=== PATIENT | female | born 1960 | race Caucasian/White ===

== ENCOUNTER 2016-06-25 00:11 | Emergency (ER) | payer OTHER | END 2016-06-25 00:52 | disposition home or self-care (01) | LOC: D.ER 00:11 | DX: M48.06 Spinal stenosis, lumbar region (principal); F17.200 Nicotine dependence, unspecified, uncomplicated ==

== ENCOUNTER → 2016-12-02 16:28 | Outpatient (CLI) | payer OTHER ==
[~2016-12-02 16:28] MED LIST: BACLOFEN10 MG; CELEXA40 MG PO; COZAAR100 MG PO; KLONOPIN0.5 MG PO; LIPITOR10 MG PO; MOBIC7.5 MG PO; PLAVIX75 MG PO
[2017-01-20 17:48] VITALS: BMI 25.9
== END | disposition home or self-care (01) ==
LOC: D.MAMMO 08:00
DX: Z12.31 Encounter for screening mammogram for malignant neoplasm of breast (principal)

== ENCOUNTER 2017-01-20 12:12 | Outpatient (CLI) | payer OTHER ==
[~2017-01-20] VITALS: Ht 154.9 cm; Wt 62.0 kg
--- NOTE | ~2017-01-20 | HEMODYNAMI ---
PATIENT:HERMINIA CHOPRA MEDICAL RECORD: [id number] : 60 LOCATION:[address] ADMISSION DATE: 01/20/17 Generatedon:01/21/201710:04 Patient name: HERMINIA CHOPRA Patient #: [id number] SSN: DO B: 1960 Date of study: 01/21/2017 Page: Of Hemodynamic Procedure Report Patient Data Patient Demographics Procedure consent was obtained First Name: HERMINIA Gender: Female Last Name: NAV : 1960 Middle Initial: A Age: 56 year(s) Patient #: [id number] Race: Unknown Additional ID: [id number] Contact details [address]: [address] [place] [address] State: [place] City: [place] Zip code: [address] Admission Admission Data Admission Date: 01/20/2017 Admission Time: 14:04 Room #: D2132 Lab Results Lab Result Date: 01/21/2017 Lab Result Time: 0:00 Biochemistry Name Units Result Min Max BUN mg/dl 13 --(--*-)-- 7 18 Creatinine mg/dl 0.7 --(*---)-- 0.6 1.3 CBC Name Units Result Min Max Hemoglobin g/dl 12.1 *-(----)-- 13.5 17.5 Procedure Procedure Types Cath Procedure Diagnostic Procedure [facility] w/Coronaries PCI Procedure Coronary Stent Coronary Stent Initial Miscellaneous Procedures Moderate Sedation up to 45 minutes Procedure Description Procedure Date Procedure Date: 01/21/2017 Procedure Start Time: 9:31 Procedure End Time: 10:01 Procedure Staff Name Function Eyal Klein MD Performing Physician Nancy Rubio RT Monitor Una Silva RT Scrub Emilia Lomeli RN Nurse Procedure Data Cath Procedure Fluoroscopy Diagnostic fluoroscopy Total fluoroscopy Time: 10 time: 10 min min Diagnostic fluoroscopy Total fluoroscopy dose: 656 dose: 656 mGy mGy Contrast Material Contrast Material Type Amount (ml) Isovue 300 129 Entry Location Entry Primary Successful Side Size Upsize Upsize Entry Closure Succes sful Closure Location (Fr) 1 (Fr) 2 (Fr) Remarks Device Remarks Femoral Right 5 Fr 6 Fr Exoseal artery Short Estimated blood loss: 5 ml Diagnostic catheters Device Type Used For End Catheter Placement Cordis 5Fr JL 4.0 Left Coronary Catheter (MP) Angiography Cordis 5Fr 3DRC Catheter Right Coronary (MP) Angiography Cordis 5Fr Pigtail LV Angiography Catheter (MP) Procedure Complications No complications Procedure Medications Medication Administration Route Dosage Oxygen NC 2 l/min Lidocaine 2% added to field 20 Heparin Flush Bag added to field 2 bags (1000units/500ml NS) 0.9% NaCl I.V. 100 ml/hr Versed I.V. 1 mg Fentanyl I.V. 50 mcg Heparin Bolus I.V. 4000 units Integrilin (Bolus I.V. 5.6 ml 2mg/ml) Versed I.V. 1 mg Fentanyl I.V. 50 mcg Integrilin Drip I.V. drip 9.9 ml/hr (75mg/100ml) Radial Cocktail added to field 1 syringe (Verapomil 2mg/Nitro 400mcg/Heparin 1500units) Plavix P.O. 75 mg Hemodynamics Rest HGB: 12.1 (g/dl) Heart Rate: 70 (bpm) Pressure Samples Time Site Value (mmHg) Purpose Heart Use Rate(bpm) 9:35 LV 131/9,61 Snapshot 86 Gradients Valve Time Site Site Mean SEP/DFP Peak To Heart Use 1 2 (mmHg) (sec/min) Peak Rate (mmHg) (bpm) Aortic 9:35 LV AO 88 Snapshots Pre Cath Intra NCS Post Cath Vital Signs Time Heart Resp SPO2 etCO2 NIBP (mmHg) Rhythm Pain Sedation Rate (ipm) (%) (mmHg) Status Level (bpm) 9:09:06 70 16 86 34 114/70(97) NSR 0 (11) 10(A) , No pain 9:13:45 68 12 96 41.4 106/68(83) NSR 0 (11) 10(A) , No pain 9:18:22 70 15 95 47.4 106/66(83) NSR 0 (11) 10(A) , No pain 9:22:58 70 16 99 42.2 101/66(77) NSR 0 (11) 10(A) , No pain 9:27:32 76 15 94 0 104/69(81) NSR 0 (11) 10(A) , No pain 9:32:09 80 14 94 23.7 105/63(91) NSR 0 (11) 9(A) , No pain 9:36:43 88 14 94 28.1 103/67(86) NSR w/ ST 0 (11) 9(A) Elevation , No pain 9:41:18 93 15 93 19.2 96/74(85) NSR w/ ST 0 (11) 9(A) Elevation , No pain 9:45:50 93 14 95 40.7 108/73(95) NSR w/ ST 0 (11) 9(A) Elevation , No pain 9:50:49 103 14 94 43.7 129/92(113) NSR w/ ST 0 (11) 9(A) Elevation , No pain 9:55:28 100 15 97 31.1 135/91(114) NSR w/ ST 0 (11) 9(A) Elevation , No pain 10:00:06 87 16 96 32.6 115/82(101) NSR w/ ST 0 (11) 10(A) Elevation , No pain Medications Time Medication Route Dose Verified Delivered Reason Note s Effectiveness by by 9:11:00 Oxygen NC 2 l/min Eyal Nieto used for St. Jeremy Lomeli RN procedure 9:11:07 Lidocaine 2% added 20ml Eyal Morenoory for local to vial [facility] anesthetic field MD CHAPMAN 9:11:14 Heparin Flush added 2 bags Eayl Birch used for Bag to [facility] procedure (1000units/500ml field MD CHAPMAN NS) 9:11:22 0.9% NaCl I.V. 100 Eyal Ireneie Per physician ml/hr St. Jeremy Lomeli RN, MD 9:12:31 Radial Cocktail added 1 Eyal Buffie not used (Verapomil to syringe St. Jeremy Lomeli RN per dr 2mg/Nitro field MD aragon, 400mcg/Heparin femoral 1500units) approach used. 9:29:41 Versed I.V. 1 mg Eyal Bonillaie for sedation St. Jeremy Lomeli RN, MD 9:29:48 Fentanyl I.V. 50 mcg Eyal Nieto for sedation St. Jeremy Lomeli RN, MD 9:34:04 Versed I.V. 1 mg Eyal Nieto for sedation St. Jeremy Lomeli RN, MD 9:34:07 Fentanyl I.V. 50 mcg Eyal Nieto for sedation St. Jeremy Lomeli RN, MD 9:38:00 Heparin Bolus I.V. 4000 Eyal Nieto for veri fied units St. Jeremy Lomeli RN anticoagulation with dr MD aragon 9:39:55 Integrilin I.V. 5.6 ml Eyal parker wast ed (Bolus 2mg/ml) St. Jeremy Lomeli RN antiplatelet 4.4 ml MD therapy of vial 9:57:31 Integrilin Drip I.V. 9.9 Eyal parker (75mg/100ml) drip ml/hr St. Jeremy Lomeli RN antiplatelet therapy 10:03:01 Plavix P.O. 75 mg Eyal Aranda RN antiplatelet therapy Procedure Log Time Note 8:42:28 Diagnostic Cath Status : Elective 8:43:15 Time tracking: Regular hours 8:43:22 Plan of Care:Hemodynamics will remain stable., Cardiac rhythm will remain stable., Comfort level will be maintained., Respiratory function will remain adequate., Patient/ family verbilizes understanding of procedure., Procedure tolerated without complication., Recovers from procedure without complications.. 8:44:01 Lab Result : Hemoglobin 12.1 g/dl 8:44:01 Lab Result : BUN 13 mg/dl 8:44:01 Lab Result : Creatinine 0.7 mg/dl 9:00:14 Nancy SHELLEY(R) sent for patient. Start room use. 9:08:11 Patient received from PCU to CCL 1 Alert and oriented. Tansferred to table in Supine position. 9:08:13 Warm blankets applied, and genevieve hugger turned on for patient comfort. 9:08:13 Correct patient and procedure confirmed by team. 9:08:15 Signed procedure consent form obtained from patient. 9:08:15 ECG and BP/O2 sat monitors applied to patient. 9:08:17 Vital chart was started 9:08:17 Full Disclosure recording started 9:11:00 Oxygen 2 l/min NC was administered by Emilia Lomeli RN; used for procedure; 9:11:07 Lidocaine 2% 20ml vial added to field was administered by yEal Klein MD; for local anesthetic; 9:11:14 Heparin Flush Bag (1000units/500ml NS) 2 bags added to field was administered by Eyal Klein MD; used for procedure; 9:11:22 0.9% NaCl 100 ml/hr I.V. was administered by Emilia Lomeli RN; Per physician; 9:12:31 Radial Cocktail (Verapomil 2mg/Nitro 400mcg/Heparin 1500units) 1 syringe added to field was administered by Emilia Lomeli RN; ; not used per dr aragon, femoral approach used. 9:13:18 Baseline sample Acquired. 9:13:32 H&P Date Dictated: 01/21/2017 New H&P dictated by physician.. 9:13:34 Pre-procedure instructions explained to patient. 9:13:34 Pre-op teaching completed and patient verbalized understanding. 9:13:39 Family in waiting room. 9:13:40 Patient NPO since Midnight. 9:14:05 Is the patient allergic to Iodine/contrast media? No. 9:14:07 Was the patient premedicated? No 9:14:11 Is patient on blood thinner?Yes 9:14:15 ACC The patient was administered the following blood thiners within the last 24 hours: ACCPlavix 9:14:21 Patient diabetic? No. 9:14:24 Previous problem with sedation/anesthesia? No ? 9:14:27 Snore? Yes 9:14:29 Sleep apnea? No 9:14:30 Deviated septum? No 9:14:31 Opens mouth fully? Yes 9:14:32 Sticks out tongue? Yes 9:14:35 Airway obstruction? No ? 9:14:43 Dentures? Yes in tight 9:14:48 Pre procedure: right dorsailis pedis pulse 2+ Normal; easily identifiable; not easily obliterated 9:14:50 Pre procedure: left dorsailis pedis pulse 2+ Normal; easily identifiable; not easily obliterated 9:14:53 Patient pain scale 4/10 ?. 9:15:00 IV patent on arrival in right hand with 0.9% NaCl at O. 9:15:03 Lab results completed and on chart. 9:15:09 Right Radial & Right Groin area was prepped with chlora-prep and draped in sterile fashion 9:15:10 Alarms reviewed by R. N. 9:15:11 Sharps counted by scrub and verified by R.N. 9:20:37 Zero performed for pressure channel P1 9:20:48 Physician paged 9:27:07 Physician arrived 9:27:08 --------ALL STOP TIME OUT------ 9:27:09 Final Timeout: patient, procedure, and site verified with staff and physician. All members of the team are in agreement. 9:27:13 Right Radial & Right Groin site verified by team. 9:27:17 Physical assessment completed. ASA score P 2 - A patient with mild systemic disease as per Eyal Klein MD. 9:27:23 Sedation plan: IV Moderate Sedation Medication:Versed, Fentanyl 9:27:29 Use device set Femoral Dx 9:27:30 Acist Syringe opened to sterile field. 9:27:30 Bag Decanter opened to sterile field. 9:27:31 Medline Cath Pack opened to sterile field. 9:27:31 Terumo 5Fr Ocate Sheath opened to sterile field. 9:27:32 St Jason 260cm J .035 wire opened to sterile field. 9:27:33 Acist Hand Control opened to sterile field. 9:27:33 Acist Manifold opened to sterile field. 9:27:34 Diagnostic Infinity 5Fr Multipack catheter opened to sterile field. 9:27:34 Tegaderm 4 x 4 opened to sterile field. 9:29:41 Versed 1 mg I.V. was administered by Emilia Lomeli RN; for sedation; 9::48 Fentanyl 50 mcg I.V. was administered by Emilia Lomeli RN; for sedation; 9:31:27 Procedure started. 9:31:30 Local anesthetic to right femoral artery with Lidocaine 2% by Eyal Klein MD.INITIAL ACCESS ONLY 9:31:44 A 5 Fr sheath was inserted into the Right Femoral artery 9:31:52 A Cordis 5Fr JL 4.0 Catheter (MP) was advanced over the wire and used for Left Coronary Angiography. 9:32:48 LCA angiography performed. 9:32:51 Injector settings: Ml/sec: 3, Volume: 6, 9:33:36 Catheter removed. 9:33:42 A Cordis 5Fr 3DRC Catheter (MP) was advanced over the wire and used for Right Coronary Angiography. 9:34:04 Versed 1 mg I.V. was administered by Emilia Lomeli RN; for sedation; 9:34:07 Fentanyl 50 mcg I.V. was administered by Emilia Lomeli RN; for sedation; 9:34:25 RCA angiography performed. 9:34:29 Injector settings: Ml/sec: 3, Volume: 6, 9:34:32 Catheter removed. 9:34:37 A Cordis 5Fr Pigtail Catheter (MP) was advanced over the wire and used for LV Angiography. 9:34:56 Terumo 6Fr Ocate Sheath opened to sterile field. 9:34:57 Villarreal Whisper J 300cm 0.014 guide wire opened to sterile field. 9:34:58 MC2 BasixCompak Inflation Kit opened to sterile field. 9:35:24 LV hemodynamics recorded. 9:35:26 LV gram done using FERRARA 9:35:28 Injector settings: Ml/sec: 5, Volume: 15, 9:35:35 EF : 40 % 9:35:55 Food and Beveragetronic Launcher 6Fr AR 1.0 guide catheter opened to sterile field. 9:36:24 Catheter removed. 9:36:26 Proceeding to intervention. 9:36:34 Sheath upsized to a 6 Fr Short. 9:36:43 6 Fr ar 1 guide catheter was inserted over the wire 9:36:48 whisper wire advanced. 9:38:00 Heparin Bolus 4000 units I.V. was administered by Emilia Lomeli RN; for anticoagulation; verified with dr aragon 9:39:55 Integrilin (Bolus 2mg/ml) 5.6 ml I.V. was administered by Emilia Lomeli RN; for antiplatelet therapy; wasted 4.4 ml of vial 9:40:31 Wire removed. 9:41:03 Guide catheter removed. 9:41:11 Medtronic Launcher 6Fr HS I guide catheter opened to sterile field. 9:41:26 6 Fr hs 1 guide catheter was inserted over the wire 9:43:36 whisper wire advanced. 9:43:40 Inflation number: 1 A Irons Sci Taylor 3.0 X 15 balloon was prepped and advanced across the Dist RCA, then inflated to 10 KEDAR for 0:30 (min:sec). 9:44:24 Irons Sci Choice PT Extra Support J 300cm .014 gu opened to sterile field. 9:45:07 whisper wire exchanged for whisper wire 9:45:43 Inflation number: 2 The Irons Sci Taylor 3.0 X 15 balloon was reinflated across the Dist RCA, to 10 KEDAR for 0:30 (min:sec). 9:45:57 Inflation number: 3 The Irons Sci Taylor 3.0 X 15 balloon was reinflated across the Dist RCA, to 10 KEDAR for 0:10 (min:sec). 9:47:13 Inflation number: 4 The Irons Sci Taylor 3.0 X 15 balloon was reinflated across the Dist RCA, to 10 KEDAR for 0:30 (min:sec). 9:47:55 Balloon removed over the wire. 9:49:52 Inflation Number: 5 A Juan OTW 3.0 x 18 stent was prepped and advanced across the Dist RCA. The stent was deployed at 14 KEDAR for 0:30 (min:sec). 9:50:31 Stent catheter was removed intact over wire. 9:52:42 Inflation Number: 6 A Juan OTW 3.0 x 26 stent was prepped and advanced across the Dist RCA. The stent was deployed at 14 KEDAR for 0:30 (min:sec). 9:53:01 Stent catheter was removed intact over wire. 9:55:48 Inflation Number: 1 A [place] OTW 3.5 x 18 stent was prepped and advanced across the Prox RCA. The stent was deployed at 14 KEDAR for 0:30 (min:sec). 9:57:31 Integrilin Drip (75mg/100ml) 9.9 ml/hr I.V. drip was administered by Emilia Lomeli RN; for antiplatelet therapy; 9:57:42 Inflation number: 1 The stent balloon was then re-inflated across the Mid RCA to 10 KEDAR for 0:30 (min:sec). 9:57:50 Inflation number: 2 The stent balloon was then re-inflated across the Mid RCA to 10 KEDAR for 0:30 (min:sec). 9:58:16 Stent catheter was removed intact over wire. 9:58:17 Wire removed. 9:58:18 Guide catheter removed. 9:59:05 Cordis 6Fr Exoseal opened to sterile field. 10:00:08 Sheath removed intact; hemostasis achieved with Exoseal to the Right Femoral artery. 10:00:10 Procedure ended.(Physican Out) 10:00:30 Fluoroscopy time 10.00 minutes. 10:00:34 Flurop Dose total: 656 10:00:34 Fluoroscopy dose: 656 mGy 10:00:40 Contrast amount:Isovue 300 129ml. 10:00:42 Sharps counted by scrub and verified by R.N. 10:00:44 Insertion/operative site no bleeding no hematoma. 10:00:48 Post-op/insertion site Right Femoral artery dressed using a 4 x 4 and Tegaderm. 10:00:51 Post right femoral artery:stable 10:00:53 Post Procedure Pulses reassessed and unchanged 10:00:56 Post procedure rhythm: unchanged. 10:01:01 Estimated blood loss: 5 ml 10:01:03 Post procedure instruction explained to patient.Patient verbalizes understanding. 10:01:04 Patient needs reinforcement of post procedure teaching. 10:01:23 Procedure type changed to Cath procedure, Diagnostic procedure, LHC, LHC w/Coronaries, PCI procedure, Coronary Stent, Coronary Stent Initial, Miscellaneous Procedures, Moderate Sedation up to 45 minutes 10:01:25 Procedure and supply charges have been captured, reviewed, submitted and are correct. 10:01:43 Procedure Complication : No complications 10:01:45 Vital chart was stopped 10:01:46 See physician's report for complete and final results. 10:01:53 Report given to [facility]. 10:01:56 Patient transfered to [facility] with Stretcher. 10:01:58 Procedure ended. 10:01:58 Full Disclosure recording stopped 10:02:45 ACC-PCI Only Patient was given prescriptions, or instructed by Eyal Klein MD to start/continue the following medications upon discharge: Plavix 10:02:48 End room use (Document Last) 10:03:01 Plavix 75 mg P.O. was administered by Emilia Lomeli RN; for antiplatelet therapy; Intervention Summary Intervention Notes Time ActionType Lesion and Equipment Action# Pressure Duration Attributes Used 9:43:40 Inflate Dist RCA Irons 1 10 00:30 balloon Sci Taylor 3.0 X 15 balloon 9:45:43 Reinflate Dist RCA Irons 2 10 00:30 balloon Sci Taylor 3.0 X 15 balloon 9:45:57 Reinflate Dist RCA Irons 3 10 00:10 balloon Sci Taylor 3.0 X 15 balloon 9:47:13 Reinflate Dist RCA Irons 4 10 00:30 balloon Sci Taylor 3.0 X 15 balloon 9:49:52 Place stent Dist RCA [place] OTW 5 14 00:30 3.0 x 18 stent 9:52:42 Place stent Dist RCA [place] OTW 6 14 00:30 3.0 x 26 stent 9:55:48 Place stent Prox RCA Juan OTW 1 14 00:30 3.5 x 18 stent 9:57:42 Reinflate Mid RCA Juan OTW 1 10 00:30 stent 3.5 x 18 balloon stent 9:57:50 Reinflate Mid RCA [place] OTW 2 10 00:30 stent 3.5 x 18 balloon stent Device Usage Item Name Manufacture Quantity Catalog Number Hospital Part Current Min imal Lot# / Charge Number Stock Stock Serial# Code Acist Acist 1 [id number] 633385 254855 [id number] 20 KnoCo Bag Microtek 1 2002S 149810 88026 028916 5 SpotMe. Medline Cardinal 1 [id number] 632766 95909 154950 5 Cath Pack Health Terumo 5Fr Terumo 1 [id number] 400360 226700 062557 [address] [facility] [address] Jason 1 012022 050058 688174 625592 30 260cm J .035 wire Acist Hand Acist 1 70226 975058 319288 085284 5 Jobr Acist Acist 1 22874 618492 485133 728413 5 Direct Grid Technologies Systems Inc Diagnostic Cardinal 1 [id number] 595817 08205 537580 30 Infinity Health 5Fr Multipack catheter Tegaderm 4 3M 1 1626W 666674 613359 263842 5 x 4 Cordis 5Fr Cardinal 1 727608 5 JL 4.0 Health Catheter (MP) Cordis 5Fr Cardinal 1 110541 5 3DRC Health Catheter (MP) Cordis 5Fr Cardinal 1 134068 5 Pigtail Health Catheter (MP) Terumo 6Fr Terumo 1 [id number] 093063 771853 295640 40 Ocate Sheath [facility] 1 [id number] 829364 256205 153235 5 [facility] 300cm 0.014 guide wire Merit Merit 1 [id number] 286906 055745 748486 15 BasixCompak Medical Inflation Kit Medtronic Medtronic 1 [id number] 504519 63748 693672 1 Launcher 6Fr AR 1.0 guide catheter Medtronic Medtronic 1 [id number] 134456 15297 976989 1 Launcher 6Fr HS I guide catheter Irons Sci Irons 1 [id number] 675592 948213 175340 1 [id number] Taylor Scientific 3.0 X 15 balloon Irons Sci Irons 1 [id number] 978828 367486 611180 5 Choice PT Scientific Extra Support J 300cm .014 gu [place] OTW Medtronic 1 [id number] 502014 6730093 781489 5 [id number] 3.0 x 18 stent [place] OTW Medtronic 1 [id number] 758037 2089957 005857 5 [id number] 3.0 x 26 stent Juan OTW Medtronic 1 [id number] 828692 6895567 979857 5 [id number] 3.5 x 18 stent Cordis 6Fr Cardinal 1 [id number] 870883 848336 391942 10 [facility] Trapit Signature Audit Pollard Stage Time Signature Unsigned Intra-Procedure 01/21/2017 Nancy Rubio 10:04:04 AM RT(R) Signatures Monitor : Nancy Rubio RT Signature : Date : Time : [place] [id number] [place] [address]
[2017-01-20 12:43] LABS: BASOPHILS 0.2 % (0-2); EOSINOPHILS 0.6 % (0-7); HEMATOCRIT 36.4 % (36.0-48.0); HEMOGLOBIN 12.2 g/dL (12-16); IMMATURE GRANULOCYTES 0.3 % (0-5); LYMPHOCYTES 23.6 % (15-50); MCH 30.3 pg (26.0-34.0); MCHC 33.5 g/dL (31.0-37.0); MCV 90.5 fL (80.0-100.0); MEAN PLATELET VOLUME 10.6 fL (7.4-10.4); MONOCYTES 7.9 % (2-11); NEUTROPHILS 67.4 % (40-80); PLATELET COUNT 306 10x3/uL (130-400); RBC 4.02 10x6/uL (4.00-5.40); RDW 15.2 % (11.5-14.5); WBC 13.5 10x3/uL (4.8-10.8)
[2017-01-20 13:22] LABS: ALBUMIN 3.4 g/dL (3.4-5.0); ALKALINE PHOSPHATASE 92 U/L (46-116); ALT (SGPT) 58 U/L (10-68); CALC OSMOLALITY 288 mosm/kg (275-300); CALCIUM 8.5 mg/dL (8.5-10.1); CHLORIDE - SERUM 106 mmol/L (98-107); CREATININE - SERUM 0.8 mg/dL (0.6-1.3); GLUCOSE 139 mg/dL (74-106); POTASSIUM - SERUM 4.1 mmol/L (3.5-5.1); PROTEIN - SERUM 6.8 g/dL (6.4-8.2); SODIUM 143 mmol/L (136-145); UREA NITROGEN 17 mg/dL (7-18); eGFR NON AFRICAN AMERICAN 78 mL/min (90-120)
[2017-01-20 13:23] LABS: BILIRUBIN - TOTAL 0.06 mg/dL (0.2-1.3)
[2017-01-20 13:37] LABS: CHOL - HDL RATIO 3.5 ratio (2.3-4.1); CHOLESTEROL, TOTAL 176 mg/dL (0-200); CKMB 12.2 U/L (0.0-3.6); CREATINE KINASE 169 UL (21-215); HDL CHOLESTEROL 51 mg/dL (32-96); LDL CHOLESTEROL 96 mg/dL (0-100); LDL-HDL RATIO 1.9 ratio (1.5-3.5); TRIGLYCERIDE 146 mg/dL (30-200)
[2017-01-20 13:45] LABS: TROPONIN-I 1.065 ng/mL (0.000-0.060)
--- NOTE | 2017-01-20 17:05 | NUR ---
RECIEVED FROM ER. PT DENIES ANY PAIN AT PRESENT TIME. TELEMERTY SHOWS SR 72.O2 AT 2 L/M PER NC. FAMILY AT BEDSIDE. WILL MONITOR
[2017-01-20 17:10] LABS: CKMB 69.1 U/L (0.0-3.6)
[2017-01-20] MEDS ORDERED: CELEXA40 MG PO (17:16)
[2017-01-20] MEDS ORDERED: MOBIC7.5 MG PO (17:18)
[2017-01-20] MEDS ORDERED: BACLOFEN10 MG (17:19)
[2017-01-20] MEDS ORDERED: KLONOPIN0.5 MG PO (17:21)
[2017-01-20 17:40] LABS: CREATINE KINASE 573 UL (21-215)
[2017-01-20 17:44] LABS: TROPONIN-I 7.052 ng/mL (0.000-0.060)
[2017-01-20 17:48] VITALS: BP 118/71; Ht 154.9 cm; Wt 62.0 kg
--- NOTE | 2017-01-20 19:19 | NUR ---
PT IS RESTING IN BED WITH EYES CLOSED. NO AWOKEN AT THIS TIME. SPOUSE IS AT THE BEDSIDE AT THIS TIME. 02 IS ON @ 2LPM PER NC. RIGHT HAND SALINE LOCK NOTED. SR'S ARE UP X 2 IN BED. CALL LIGHT AND BEDSIDE TABLE ARE WITHIN EASY REACH.
--- NOTE | 2017-01-20 21:30 | NUR ---
PT VOICED COMPLAINT OF CHEST PAIN LEVEL OF 8. DR SPARKS CALLED. NEW ORDERS NOTED. PT MEDICATED PER ORDER.
[2017-01-20 22:40] VITALS: BP 91/52
--- NOTE | 2017-01-20 23:00 | NUR ---
DR SPARKS CALLED WITH TROPONIN LEVEL OF22.243. NO NEW ORDERS GIVEN.
--- NOTE | 2017-01-20 23:08 | NUR ---
RESTING QUIETLY IN BED WITH EYES CLOSED. RESPS ARE EVEN AND UNLABORED. NO ACUTE DISTRESS NOTED.
[2017-01-20 23:21] LABS: CREATINE KINASE 1283 UL (21-215)
[2017-01-20 23:22] LABS: TROPONIN-I 22.243 ng/mL (0.000-0.060)
--- NOTE | 2017-01-20 23:56 | NUR ---
PT IN BED RESTING QUIETLY. BREATHING EVEN AND UNLABORED. WILL CPOC.
[2017-01-21 02:08] VITALS: BP 97/61
--- NOTE | 2017-01-21 03:04 | NUR ---
RESTING IN BED WITH EYES CLOSED.
--- NOTE | 2017-01-21 06:15 | NUR ---
PT RESTING IN BED WITH EYES OPEN. SURGERY CONSENTS SIGNED. NO FURTHER NEEDS VOICED.
[2017-01-21 06:37] VITALS: BP 89/59
--- NOTE | 2017-01-21 07:35 | NUR ---
AM ROUNDING- RECEIVED REPORT FROM DIRECTOR OF HEALTHCARE SYSTEMS NURSE DEMOND. PT IS CURRENTLY SITTING UP IN BED WITH EYES OPEN RESTING. GUEST IS AT BEDSIDE. PT IS CURRENTLY NPO FOR PROCEDURE TODAY (CARDIAC CATH). ON 02 AT 2L VIA NC. ON MONITOR SHOWING SB, HR 59. IV SEEN TO RIGHT HAND THAT IS CURRENTLY SALINE LOCKED. CONSENTS ARE SIGNED AND IN CHART. NO NEED AT THIS CURRENT TIME. WILL CONTINUE TO MONITOR AND CONTINUE WITH PLAN OF CARE.
[2017-01-21 08:00] VITALS: BP 91/59
[2017-01-21 08:04] LABS: BASOPHILS 0.2 % (0-2); HEMATOCRIT 37.8 % (36.0-48.0); HEMOGLOBIN 12.1 g/dL (12-16); IMMATURE GRANULOCYTES 0.2 % (0-5); LYMPHOCYTES 32.6 % (15-50); MEAN PLATELET VOLUME 10.3 fL (7.4-10.4); PLATELET COUNT 260 10x3/uL (130-400); RBC 4.04 10x6/uL (4.00-5.40); RDW 15.5 % (11.5-14.5)
[2017-01-21 08:05] LABS: MCV 93.6 fL (80.0-100.0)
[2017-01-21 08:18] LABS: CALC OSMOLALITY 284 mosm/kg (275-300); CALCIUM 8.7 mg/dL (8.5-10.1); CHLORIDE - SERUM 107 mmol/L (98-107); CREATININE - SERUM 0.7 mg/dL (0.6-1.3); GLUCOSE 93 mg/dL (74-106); POTASSIUM - SERUM 3.9 mmol/L (3.5-5.1); SODIUM 143 mmol/L (136-145); UREA NITROGEN 13 mg/dL (7-18); eGFR NON AFRICAN AMERICAN > 90 mL/min (90-120)
--- NOTE | 2017-01-21 08:46 | NUR ---
PT GIVEN PRE-OP MEDICATIONS DIRECTED. IV FLUIDS HUNG AND TUBING PRIMED.
--- NOTE | 2017-01-21 10:01 | HP ---
PATIENT: HERMINIA CHOPRA MEDICAL RECORD: [id number] ACCOUNT: [id number] LOCATION:[address] : 60 ADMISSION DATE: 01/20/17 HISTORY AND PHYSICAL EXAMINATION HISTORY OF PRESENT ILLNESS: A 56-year-old man with no known history of coronary artery disease. She has a strong family history of coronary artery disease, smokes about a pack and half a day, admitted with chest pressure, right and left arm, left jaw, some dyspnea, and she felt like she had perhaps some viral syndrome. Since in the ER, ECG shows no acute changes; however, cardiac enzymes are elevated consistent with NSTEMI. He is admitted for further evaluation. PAST MEDICAL HISTORY: 1. She has osteoarthritis. 2. Fibromyalgia. ALLERGIES: None known. MEDICATIONS: Typically include baclofen 10 mg p.o. q.6 hours p.r.n., Celexa 40 mg p.o. daily, Mobic 15 mg p.o. at bedtime, Klonopin 0.5 mg daily. SOCIAL HISTORY: Works as a nurse, smokes about a pack and half a day. No illicit drug use. REVIEW OF SYSTEMS: The patient reports easy bruising but reports no swollen glands. The patient reports no fever, no night sweats, no significant weight gain, no significant weight loss. No significant exercise tolerance. The patient reports no dry eyes, no irritation, no vision change. Patient reports no difficulty hearing and no ear pain. Patient reports no frequent nose bleeds or nose and sinus problems. Patient reports on arm pain on exertion. No shortness of breath while lying down. No history of heart murmur. Patient reports no cough, no wheezing or coughing up blood. Patient reports no abdominal pain, no vomiting. Normal appetite. No diarrhea and not vomiting blood. No nausea and no constipation. Patient reports no incontinence. No difficulty urinating. No hematuria. No increased frequency. Patient reports no muscle aches. No weakness, no arthralgias, no back pain. No swelling of the extremities. Patient reports no abnormal mole, no jaundice, no rashes. Reports no loss of consciousness. No weakness and no numbness. No seizures, dizziness, or headaches. The patient reports no depression, no sleep disturbance, feeling safe in a relationship and no alcohol abuse. Patient reports on fatigue. Reports no runny nose or sinus pressure. No itching, no hives, and no frequent sneezing. PHYSICAL EXAMINATION: GENERAL: Pleasant female in no acute distress. VITAL SIGNS: Blood pressure 97/61, pulse 58 and regular. HEENT: Normocephalic, atraumatic. NECK: No JVD or bruit. HEART: Regular, 2/6 systolic ejection murmur. LUNGS: Good air excursion. ABDOMEN: Soft, nontender. EXTREMITIES: Pulses 2+. There is no edema. NEUROLOGIC: Grossly intact. DIAGNOSTIC DATA: ECG shows minor nonspecific ST-T changes. HISTORY AND PHYSICAL [id number] HERMINIA CHOPRA IMPRESSION: Non-ST elevation myocardial infarction. PLAN: Diagnostic angiography, intervention based on above. TRANSINT:[id number] Voice Confirmation ID: [id number] DOCUMENT ID: [id number] MARLENA SPARKS MD at 1001 CC: [id number] DICTATION DATE: 01/21/17815 LEADERSHIP COACH: 01/21/17 0857 ADM IN [place] [id number] [place] [id number]
--- NOTE | 2017-01-21 10:33 | NUR ---
PT BACK FROM DOCTOR NATUROPATHIC. PT IS LETHARGIC. ON 02 AT 4L (TURNED UP DUE TO 02 SAT BEING 88%). DRESSING SEEN TO RIGHT GROIN AREA THAT IS CLEAN, DRY, AND INTACT WITH NO BLEEDING SEEN. VITAL SIGNS ARE BEING TAKEN. PT INSTRUCTED TO LIE FLAT. PT AGREES. PT IS ON INTEGRILIN DRIP AT 9.9ML/HR (KEN, CHARGE NURSE CALLED NAYAN IN DOCTOR NATUROPATHIC AND STATES OK TO RUN INTEGRILIN WITH NS). WILL CONTINUE TO MONITOR.
--- NOTE | 2017-01-21 10:57 | NUR ---
THIS NURSE WENT TO CHECK ON PT. PT IS RESTING WITH EYES CLOSED. FAMILY IS AT BEDSIDE. IV FLUIDS/MEDICATIONS HANGING PER RN INFUSION. DRESSING TO RIGHT GROIN IS CLEAN, DRY, AND INTACT WITH NO BLEEDING SEEN. PT IS LAYING FLAT. WILL CONTINUE TO MONITOR.
[2017-01-21 12:00] VITALS: BP 100/59
[2017-01-21] MEDS ORDERED: LIPITOR10 MG PO (13:00)
[2017-01-21] MEDS ORDERED: COZAAR100 MG PO (13:00)
[2017-01-21] MEDS ORDERED: PLAVIX75 MG PO (13:01)
--- NOTE | 2017-01-21 14:41 | NUR ---
THIS NURSE CHECKED ON PT (VITAL SIGNS BEING TAKING PER PROTOCOL AND ARE ON VITAL SHEET). DRESSING TO RIGHT GROIN IS CLEAN, DRY, AND INTACT WITH NO BLEEDING SEEN. IT HAS BEEN 4 HOURS SINCE PTS CARDIAC CATHETER. THIS NURSE RAISED HOB TO APPROX 30 DEGREES. PT INSTRUCTED TO ALERT STAFF IF ANY BLEEDING SEEN. FAMILY MEMBERS ARE AT BEDSIDE. WILL CONTINUE TO MONITOR.
[2017-01-21 16:00] VITALS: BP 89/53
--- NOTE | 2017-01-21 18:07 | NUR ---
PT IS CURRENTLY LAYING IN BED ON LEFT SIDE WITH EYES OPEN RESTING. FAMILY MEMBERS ARE AT BEDSIDE. DRESSING TO RIGHT GROIN IS CLEAN, DRY, AND INTACT WITH NO BLEEDING SEEN. NO NEED AT THIS CURRENT TIME. WILL CONTINUE TO MONITOR.
--- NOTE | 2017-01-21 20:07 | NUR ---
RESUMED CARE OF PT, LYING IN BED RESPIRATIONS EVEN AND UNLABORED ON 2LPM VIA NC. 75 SR ON TELEMETRY. RIGHT HADN INFUSING INTEGRILIN @ 9.9 AND NS @ 100. NO NEEDS AT THIS TIME, CALL LIGHT IN REACH. SEE NURSE ASSESSMENT.
[2017-01-21 21:07] VITALS: BP 86/50
[2017-01-22 00:42] VITALS: BP 107/62
--- NOTE | 2017-01-22 01:24 | NUR ---
MORPHINE 4MG IVP FOR CHEST PAIN 6:10. WILL CONTINUE TO MONITOR.
--- NOTE | 2017-01-22 03:28 | NUR ---
LYING IN BED WITH EYES CLOSED, CALL LIGHT IN REACH. WILL CONTINUE TO MONITOR.
[2017-01-22 04:46] VITALS: BP 99/59
--- NOTE | 2017-01-22 06:27 | NUR ---
NO CHANGES FROM PREVIOUS ASSESSMENT, CALL LIGHT IN REACH.
--- NOTE | 2017-01-22 07:30 | NUR ---
ASSESSMENT COMPLETED. TELEMERTY SHOWS SR 81. IV TO THE RIGHT HAND. RIGHT GROIN SOFT WITH DRSG DRY AND INTACT. PPP. DENIES ANY NEEDS. SR UP WITH CALL LIGHT IN REACH
[2017-01-22 08:00] VITALS: BP 103/66
--- NOTE | 2017-01-22 08:04 | NUR ---
PT AAOX4 RESP UNLABORED DENIES ANY NEEDS OR DISCOMFORT AT THIS TIME AWAITING DISCHARGE
--- NOTE | 2017-01-22 08:10 | NUR ---
DISCHARGED. IV DCD WITH WITH TIP INTACT. TO PRIVATE CAR PER WHEEL CHAIR.
--- NOTE | 2017-01-22 11:39 | OP ---
PATIENT NAME: HERMINIA CHOPRA MEDICAL RECORD: [id number] :60 LOCATION:D. D.2132 ADMISSION DATE:01/20/17 SURGEON: MARLENA SPARKS MD DATE OF OPERATION: 01/21/2017 PROCEDURE: Left heart catheterization, selective coronary angiography, right femoral artery approach. CATHETERS: A 5-Algerian sheath, 5/4 left and right Vanessa, 5/4 pig. The procedure was well tolerated and we proceeded immediately to PTCA stenting of the right coronary artery. FINDINGS: Left ventriculography in the 30-degree FERRARA view shows inferior, inferobasilar to mid inferior wall hypokinesis. Overall, function reduced 40%. CORONARY ANATOMY: LEFT MAIN: Left main is free of disease. LAD: Luminal irregularities, otherwise free of disease. CIRCUMFLEX: Small vessel, free of disease. RIGHT CORONARY ARTERY: Dominant and is totally occluded in its mid portion with some collateralization distally. IMPRESSION: Single-vessel disease, occluded right. PLAN: Intervention momentarily. DESCRIPTION: A 5-Algerian sheath was exchanged for a 6-Algerian sheath. We initially used an AR1 guiding catheter; however, we had a guide catheter resection. Fortunately we were able to re-cannulate the right coronary artery with a hockey stick catheter. Using a Whisper wire, we were able to transverse both the dissection and the totally occluded right. Next, we used a 3.0 x 15 mm Monterey balloon, exchanged the catheter, placed just distal to the ____ occlusion and used a PT export wire. Next, multiple balloon inflations were placed up and down the right coronary artery with 3.0 x 15 Monterey balloon. Stents were placed in the following fashion: Distally, a 3.0 x 18 mm Enders drug-eluting stent was placed up to 14 atmospheres. Next, a 26-mm x 3.0 Enders stent was inflated up to 14 atmospheres and finally the proximal dissection was addressed with a 3.5 x 18 mm Juan drug-eluting stent. IMPRESSION: Successful percutaneous transluminal coronary angioplasty stenting of the right coronary artery. LYNDA flow improved from 0 to 3. Integrilin was used in the case as well as a drip, Plavix was previously loaded in the ER. Sheath was closed with ExoSeal device. TRANSINT:[id number] Voice Confirmation ID: [id number] DOCUMENT ID: [id number] OPERATIVE REPORT [id number] HERMINIA CHOPRA GREGORY A MD at 1139 CC: [id number] DICTATION DATE: 01/21/17 1007 ALLERGY PHYSICIAN: 01/21/17 1138 DIS IN 01/22/17 [place] [id number] [place] [id number]
== END 2017-01-22 08:15 | disposition home or self-care (01) ==
LOC: OBSVTIME → D.OPS 12:12 → D.ER 12:12 → D.M2 14:04 → OBSVTIME 14:04 → EDSTATUS 17:12 → D.M2 01-22 08:15 → D.OPS 01-22 08:15
PROVIDERS: Emergency Medicine; Internal Medicine Interventional Cardiology
DX: I25.119 Atherosclerotic heart disease of native coronary artery with unspecified angina pectoris (principal); M19.90 Unspecified osteoarthritis, unspecified site; M79.7 Fibromyalgia; F17.210 Nicotine dependence, cigarettes, uncomplicated; Z01.812 Encounter for preprocedural laboratory examination

== ENCOUNTER 2017-05-01 12:13 | Emergency (ER) | payer OTHER ==
[2017-01-20 17:48] VITALS: BMI 25.9
== END 2017-05-01 16:00 | disposition home or self-care (01) ==
LOC: D.ER 12:13
DX: M54.5 Low back pain (principal); S39.012A Strain of muscle, fascia and tendon of lower back, initial encounter; X58.XXXA Exposure to other specified factors, initial encounter; Y93.89 Activity, other specified; Y92.019 Unspecified place in single-family (private) house as the place of occurrence of the external cause

== ENCOUNTER 2017-10-07 10:36 | Emergency (ER) | payer OTHER ==
[~2017-10-07] VITALS: Ht 154.9 cm; Wt 60.9 kg
[2017-10-07 10:48] VITALS: Ht 154.9 cm; Wt 60.9 kg
[2017-10-07 11:45] LABS: APPEARANCE CLEAR (CLEAR); BILIRUBIN NEGATIVE (NEGATIVE); COLOR YELLOW (YELLOW); GLUCOSE NEGATIVE (NEGATIVE); KETONE NEGATIVE (NEGATIVE); NITRITE NEGATIVE (NEGATIVE); PROTEIN NEGATIVE (NEGATIVE); UROBILINOGEN NORMAL (NORMAL)
[2017-10-07 11:48] LABS: BACTERIA FEW /hpf (NONE SEEN); EPITHELIAL CELLS 0-5 /hpf (0-5); RED CELLS - URINE 0-5 /hpf (0-5); WHITE CELLS - URINE 0-5 /hpf (0-5)
[2017-10-07] MEDS ORDERED: MEDROL DOSE PACK4 MG PO (12:36)
[2017-10-07 12:50] VITALS: BP 112/68
== END 2017-10-07 12:52 | disposition home or self-care (01) ==
LOC: D.ER 10:36
PROVIDERS: Nurse Practitioner Family
DX: M54.5 Low back pain (principal); I10 Essential (primary) hypertension; F17.200 Nicotine dependence, unspecified, uncomplicated

== ENCOUNTER 2017-11-23 13:41 | Emergency (ER) | payer SELFPAY ==
[~2017-11-23] VITALS: Ht 154.9 cm; Wt 60.9 kg
[~2017-11-23 13:41] MED LIST changes: +MEDROL DOSE PACK4 MG PO
[2017-11-23 14:02] VITALS: BP 115/72; Ht 154.9 cm; Wt 60.9 kg
== END 2017-11-23 17:05 | disposition left against medical advice (07) ==
LOC: D.ER 13:41
DX: M54.5 Low back pain (principal)

== ENCOUNTER 2017-11-24 10:33 | Emergency (ER) | payer SELFPAY ==
[2017-11-23 14:02] VITALS: BMI 25.3
== END 2017-11-24 11:31 | disposition left against medical advice (07) ==
LOC: D.ER 10:33
DX: M54.5 Low back pain (principal)

== ENCOUNTER 2017-12-02 23:13 | Emergency (ER) | payer SELFPAY ==
[~2017-12-02] VITALS: Ht 154.9 cm; Wt 60.8 kg
[2017-12-02 23:17] VITALS: Ht 154.9 cm; Wt 60.8 kg
[2017-12-02] MEDS ORDERED: CYCLOBENZAPRINE10 MG PO (23:35)
[2017-12-02] MEDS ORDERED: ACETAMINOPHEN500 M1 PO (23:35)
[2017-12-02] MEDS ORDERED: IBUPROFEN800 MG PO (23:35)
[2017-12-03 00:09] VITALS: BP 130/81
== END 2017-12-03 00:01 | disposition home or self-care (01) ==
LOC: D.ER 23:13
DX: M54.5 Low back pain (principal); M48.061 Spinal stenosis, lumbar region without neurogenic claudication; F17.200 Nicotine dependence, unspecified, uncomplicated

== ENCOUNTER 2018-01-11 11:28 | Emergency (ER) | payer SELFPAY ==
[~2018-01-11] VITALS: Ht 154.9 cm; Wt 60.9 kg
[~2018-01-11 11:28] MED LIST changes: +ACETAMINOPHEN500 M1 PO; +CYCLOBENZAPRINE10 MG PO; +IBUPROFEN800 MG PO
[2018-01-11 11:35] VITALS: BP 127/69; Ht 154.9 cm; Wt 60.9 kg
== END 2018-01-11 15:02 | disposition left against medical advice (07) ==
LOC: D.ER 11:28
DX: M54.9 Dorsalgia, unspecified (principal)

== ENCOUNTER 2018-03-02 13:01 | Emergency (ER) | payer SELFPAY ==
[~2018-03-02] VITALS: Ht 154.9 cm; Wt 61.8 kg
[2018-03-02 13:04] VITALS: BP 127/84; Ht 154.9 cm; Wt 61.8 kg
== END 2018-03-02 14:50 | disposition left against medical advice (07) ==
LOC: D.ER 13:01
DX: M54.9 Dorsalgia, unspecified (principal)

== ENCOUNTER 2018-03-26 13:22 | Observation (INO) | payer OTHER ==
[~2018-03-26] VITALS: Ht 154.9 cm; Wt 61.9 kg
--- NOTE | ~2018-03-26 | HEMODYNAMI ---
PATIENT:HERMINIA CHOPRA MEDICAL RECORD: [id number] : 60 LOCATION:[facility] D.2124 ADMISSION DATE: 03/26/18 Generatedon:03/27/20188:37 Patient name: HERMINIA CHOPRA Patient #: [id number] SSN: DO B: 1960 Date of study: 03/27/2018 Page: Of Hemodynamic Procedure Report Patient Data Patient Demographics Procedure consent was obtained First Name: HERMINIA Gender: Female Last Name: NAV : 1960 Middle Initial: A Age: 57 year(s) Patient #: [id number] Race: Unknown Additional ID: [id number] Contact details [address]: [address] [place] [address] State: [place] City: [place] Zip code: [address] Past Medical History Allergies: No known allergies Admission Admission Data Admission Date: 03/26/2018 Admission Time: 19:17 Room #: D.2124 Procedure Procedure Types Cath Procedure Diagnostic Procedure LHC LHC w/Coronaries FFR/IVUS Intra-Coronary IVUS Initial Sedation Charges Moderate Sedation up to 15 minutes PCI Procedure Coronary Stent Coronary Stent Initial Procedure Description Procedure Date Procedure Date: 03/27/2018 Procedure Start Time: 8:11 Procedure End Time: 8:24 Procedure Staff Name Function Kentrell Denson MD Performing Physician Nancy Rubio RT Monitor John Nunes RT Scrub Ravi Hunter RN Nurse Procedure Data Cath Procedure Fluoroscopy Diagnostic fluoroscopy Total fluoroscopy Time: 3.4 time: 3.4 min min Diagnostic fluoroscopy Total fluoroscopy dose: 399 dose: 399 mGy mGy Contrast Material Contrast Material Type Amount (ml) Isovue 300 95 Entry Location Entry Primary Successful Side Size Upsize Upsize Entry Closure Succes sful Closure Location (Fr) 1 (Fr) 2 (Fr) Remarks Device Remarks Femoral Right 5 Fr 6 Fr Exoseal artery Short Estimated blood loss: 5 ml Diagnostic catheters Device Type Used For End Catheter Placement MULTIPACK Pigtail 5 Fr Multi-vessel catheter Angiography MULTIPACK JL 4.0 5Fr Left Coronary catheter Angiography MULTIPACK 3DRC 5Fr Right Coronary catheter Angiography Procedure Complications No complications Procedure Medications Medication Administration Route Dosage 0.9% NaCl I.V. 100 ml/hr Oxygen etCO2 Nasal cannula 2 l/min Heparin Flush Bag added to field 2 bags (1000units/500ml NS) Lidocaine 2% added to field 20 Versed I.V. 2 mg Fentanyl I.V. 100 mcg Versed I.V. 1 mg Fentanyl I.V. 100 mcg Heparin Bolus I.V. 4000 units Hemodynamics Rest Heart Rate: 73 (bpm) Pressure Samples Time Site Value (mmHg) Purpose Heart Use Rate(bpm) 8:13 LV 127/37,51 Snapshot 81 Snapshots Pre Cath Intra NCS Post Cath Vital Signs Time Heart Resp SPO2 etCO2 NIBP (mmHg) Rhythm Pain Sedation Rate (ipm) (%) (mmHg) Status Level (bpm) 7:47:19 72 17 96 0 144/72(84) NSR 0 (11) 10(A) , No pain 7:51:31 74 13 91 9.7 126/86(112) NSR 0 (11) 10(A) , No pain 7:55:41 73 12 94 39 111/71(102) NSR 0 (11) 10(A) , No pain 7:59:45 73 10 96 31.5 115/72(93) NSR 0 (11) 10(A) , No pain 8:03:51 73 19 97 39.7 125/74(97) NSR 0 (11) 10(A) , No pain 8:07:58 81 17 97 31.5 110/74(99) NSR 0 (11) 10(A) , No pain 8:12:00 79 18 96 39 112/76(88) NSR 0 (11) 10(A) , No pain 8:16:04 81 16 90 0 110/77(91) NSR 0 (11) 10(A) , No pain 8:20:05 86 18 86 25.5 114/77(102) NSR 0 (11) 10(A) , No pain 8:24:09 19 93 60 120/72(80) NSR 0 (11) 10(A) , No pain Medications Time Medication Route Dose Verified Delivered Reason Notes Effectiveness by by 7:48:09 0.9% NaCl I.V. 100 Ravi Ravi Per physician ml/hr Elsa Hunter RN RN 7:48:19 Oxygen etCO2 2 Ravi Ravi Per physician Nasal l/min Elsa Hunter cannula RN RN 7:48:29 Heparin Flush added 2 Ravi Ravi used for Bag to bags Lorhéctor Hunter procedure (1000units/500ml field RN RN NS) 7:48:41 Lidocaine 2% added 20ml Ravi Ravi for local to vial Lorhéctor Hunter anesthetic field RN RN 8:12:42 Versed I.V. 2 mg Ravi Ravi for sedation Elsa Hunter RN RN 8:12:50 Fentanyl I.V. 100 Ravi Ravi for sedation mcg Elsa Hunetr RN RN 8:14:02 Versed I.V. 1 mg Ravi Ravi for sedation Elsa Hunter RN RN 8:14:07 Fentanyl I.V. 100 Ravi Ravi for sedation mcg Elsa Hunter RN RN 8:19:25 Heparin Bolus I.V. 4000 Ravi Ravi for units Elsa Hunter anticoagulation RN jewelry salesperson Log Time Note 7:28:56 Diagnostic Cath Status : Elective 7:29:26 John Suit RT(R) sent for patient. Start room use. 7:29:27 Time tracking: Regular hours (M-F 7:00 - 5:00) 7:29:31 Plan of Care:Hemodynamics will remain stable., Cardiac rhythm will remain stable., Comfort level will be maintained., Respiratory function will remain adequate., Patient/ family verbilizes understanding of procedure., Procedure tolerated without complication., Recovers from procedure without complications.. 7:41:56 Patient received from Med II to [facility] 2 Alert and oriented. Tansferred to table in Supine position. 7:41:57 Warm blankets applied, and genevieve hugger turned on for patient comfort. 7:41:57 Correct patient and procedure confirmed by team. 7:41:59 Signed procedure consent form obtained from patient. 7:41:59 ECG and BP/O2 sat monitors applied to patient. 7:42:28 H&P Date Dictated: 03/26/2018 Within 30 days and on chart.. 7:42:30 Pre-procedure instructions explained to patient. 7:42:30 Pre-op teaching completed and patient verbalized understanding. 7:42:35 Family in waiting room. 7:42:45 Patient NPO since Midnight. 7:42:53 Patient allergic to No known allergies 7:42:54 Is the patient allergic to Iodine/contrast media? No. 7:44:22 Is patient on blood thinner?Yes 7:44:25 ACC The patient was administered the following blood thiners within the last 24 hours: ACCPlavix 7:44:27 Patient diabetic? No. 7:44:57 Previous problem with sedation/anesthesia? No ? 7:44:58 Snore? Yes 7:44:59 Sleep apnea? No 7:45:00 Deviated septum? No 7:45:01 Opens mouth fully? Yes 7:45:02 Sticks out tongue? Yes 7:45:03 Airway obstruction? No ? 7:45:07 Dentures? Yes in tight 7:45:12 Pre procedure: right dorsailis pedis pulse 2+ Normal; easily identifiable; not easily obliterated 7:45:13 Patient pain scale 0/10 ?. 7:45:20 IV patent on arrival in right hand with 0.9% NaCl at [facility]. 7:45:48 Lab Result : BUN 20 mg/dl 7:45:48 Lab Result : Hemoglobin 12.2 g/dl 7:45:48 Lab Result : Creatinine 0.8 mg/dl 7:45:48 Lab Result : Hematocrit 36.2 % 7:45:50 Lab results completed and on chart. 7:45:52 Right groin area was prepped with chlora-prep and draped in sterile fashion 7:45:54 Alarms reviewed by R. N. 7:45:54 Sharps counted by scrub and verified by R.N. 7:45:56 Use device set Femoral Dx 7:45:56 ACIST Syringe (00839) opened to sterile field. 7:45:57 Bag Decanter (2002) opened to sterile field. 7:45:57 Medline Cath Pack ([id number]) opened to sterile field. 7:45:59 ACIST Hand Control (15025) opened to sterile field. 7:45:59 ACIST Manifold (25501) opened to sterile field. 7:46:00 DIAGNOSTIC Multipack 5Fr catheter set (BH2162) opened to sterile field. 7:46:00 Tegaderm 4 x 4 (1626W) opened to sterile field. 7:46:01 SHEATH 5FR [place] (ZJO000) opened to sterile field. 7:46:02 DIAGNOSTIC WIRE .035 260cm J wire (266543) opened to sterile field. 7:46:07 Vital chart was started 7:46:08 Baseline sample Acquired. 7:46:11 Rhythm: sinus rhythm 7:46:12 Full Disclosure recording started 7:48:09 0.9% NaCl 100 ml/hr I.V. was administered by Rvai Hunter RN; Per physician; 7:48:19 Oxygen 2 l/min etCO2 Nasal cannula was administered by Ravi Hunter RN; Per physician; 7:48:29 Heparin Flush Bag (1000units/500ml NS) 2 bags added to field was administered by Ravi Hunter RN; used for procedure; 7:48:41 Lidocaine 2% 20ml vial added to field was administered by Ravi Hunter RN; for local anesthetic; 8:08:15 Zero performed for pressure channel P1 8:11:12 Physician arrived 8::13 --------ALL STOP TIME OUT------ 8:11:13 Final Timeout: patient, procedure, and site verified with staff and physician. All members of the team are in agreement. 8:11:16 Right groin site verified by team. 8:11:20 Physical assessment completed. ASA score P 2 - A patient with mild systemic disease as per Kentrell Denson MD. 8:11:24 Sedation plan: IV Moderate Sedation Medication:Versed, Fentanyl 8:11:30 Procedure started. 8:11:35 Local anesthetic to right femoral artery with Lidocaine 2% by Kentrell Denson MD.INITIAL ACCESS ONLY 8:11:44 A 5 Fr sheath was inserted into the Right Femoral artery 8:11:52 A MULTIPACK Pigtail 5 Fr catheter was advanced over the wire and used for Multi-vessel Angiography. 8:12:42 Versed 2 mg I.V. was administered by Ravi Hunter RN; for sedation; 8:12:50 Fentanyl 100 mcg I.V. was administered by Ravi Hunter RN; for sedation; 8:13:08 LV hemodynamics recorded. 8:13:10 LV gram done using FERRARA 8::13 Injector settings: Ml/sec: 5, Volume: 15, 8:13:21 EF : 60 % 8:13:47 Catheter removed. 8:13:52 A MULTIPACK JL 4.0 5Fr catheter was advanced over the wire and used for Left Coronary Angiography. 8:14:02 Versed 1 mg I.V. was administered by Ravi Hunter RN; for sedation; 8:14:03 LCA angiography performed. 8:14:06 Injector settings: Ml/sec: 3, Volume: 6, 8:14:07 Fentanyl 100 mcg I.V. was administered by Ravi Hunter RN; for sedation; 8:14:56 Catheter removed. 8:15:02 A MULTIPACK 3DRC 5Fr catheter was advanced over the wire and used for Right Coronary Angiography. 8:15:22 RCA angiography performed. 8:15:55 Injector settings: Ml/sec: 3, Volume: 6, 8:15:57 Catheter removed. 8:15:57 Proceeding to intervention. 8:16:23 SHEATH 6FR [place] (RJU421) opened to sterile field. 8:16:23 INFLATOR Merit BasixCompak (HA2575) opened to sterile field. 8:16:24 CHOICE PT Extra Support 182cm wire ([id number]) opened to sterile field. 8:16:24 GUIDE 6FR HS II catheter (XY7TVVY) opened to sterile field. 8:16:25 [place] IVUS Catheter (18754Z) opened to sterile field. 8:16:34 Sheath upsized to a 6 Fr Short. 8:16:38 6 Fr hs 2 guide catheter was inserted over the wire 8:16:45 choice pt wire advanced. 8:16:48 Wire advanced across lesion. 8:16:52 IVUS catheter advanced over wire. 8:19:25 Heparin Bolus 4000 units I.V. was administered by Ravi Hunter RN; for anticoagulation; 8:19:54 IVUS pass to RCA lesion performed. 8:19:55 IVUS catheter removed over wire. 8:21:08 Place stent Inflation Number: 1 A INTEGRITY RX 4.0 x 30 stent ([id number]) was prepped and advanced across the Mid RCA. The stent was deployed at 13 KEDAR for 0:10 (min:sec). 8:21:56 Inflation number: 2 The stent balloon was then re-inflated across the Mid RCA to 13 KEDAR for 0:10 (min:sec). 8:22:50 Stent catheter was removed intact over wire. 8::51 Wire removed. 8::52 Guide catheter removed. 8:23:00 EXOSEAL 6Fr (EX600) opened to sterile field. 8:23:20 Sheath removed intact; hemostasis achieved with Exoseal to the Right Femoral artery. 8:23:30 Procedure ended.(Physican Out) 8:23:49 Fluoroscopy time 03.40 minutes. 8::52 Fluoroscopy dose: 399 mGy 8::52 Flurop Dose total: 399 8:23:56 Contrast amount:Isovue 300 95ml. 8:23:57 Sharps counted by scrub and verified by R.N. 8:23:58 Insertion/operative site no bleeding no hematoma. 8:24:00 Post-op/insertion site Right Femoral artery dressed using a 4 x 4 and Tegaderm. 8:24:05 Post right femoral artery:stable 8:24:08 Post procedure rhythm: unchanged. 8:24:11 Estimated blood loss: 5 ml 8:24:12 Post procedure instruction explained to patient.Patient verbalizes understanding. 8:24:12 Patient needs reinforcement of post procedure teaching. 8:24:25 IV right hand D/C'd due to infiltration. 8:24:25 Procedure type changed to Cath procedure, Diagnostic procedure, LHC, LHC w/Coronaries, FFR/IVUS, Intra-Coronary IVUS Initial, Sedation Charges, Moderate Sedation up to 15 minutes, PCI procedure, Coronary Stent, Coronary Stent Initial 8:24:26 THOMAS Hunter starting new IV; 22 gauge left forearm 8:24:26 Procedure and supply charges have been captured, reviewed, submitted and are correct. 8:24:31 Procedure Complication : No complications 8:24:33 Vital chart was stopped 8:24:33 See physician's report for complete and final results. 8:24:36 Report given to Med II. 8:24:39 Patient transfered to Med II with Stretcher. 8:24:42 Procedure ended. 8:24:42 Full Disclosure recording stopped 8:24:50 ACC-PCI Only Patient was given prescriptions, or instructed by Kentrell Denson MD to start/continue the following medications upon discharge: Plavix 8:24:51 End room use (Document Last) Intervention Summary Intervention Notes Time ActionType Lesion and Equipment Action# Pressure Duration Attributes Used 8:21:08 Place stent Mid RCA INTEGRITY RX 1 13 00:10 4.0 x 30 stent ([id number]) 8:21:56 Reinflate Mid RCA INTEGRITY RX 2 13 00:10 stent 4.0 x 30 balloon stent ([id number]) Device Usage Item Name Manufacture Quantity Catalog Number Hospital Part Current Mini mal Lot# / Charge Number Stock Stock Serial# Code ACIST Acist 1 80546 651526 855554 926000 20 Syringe Medical (18368) Systems Inc Bag Decanter Microtek 1 2001S 518921 52026 599804 5 (2001S) Medical Inc. Medline Cath Medline 1 [id number] 455090 06915 434542 5 Pack ([id number]) ACIST Hand Acist 1 53083 235454 399684 389651 5 Control Medical (97845) Systems Inc ACIST Acist 1 75011 779096 164564 595906 5 Manifold Medical (87850) Systems Inc DIAGNOSTIC Cardinal 1 ZB5305 035704 94770 769483 30 Multipack Health 5Fr catheter set (EO2202) Tegaderm 4 x 3M 1 1626W 611491 064136 635805 5 4 (1626W) SHEATH 5FR Terumo 1 UEZ741 692183 549232 495348 5 [place] (BZH382) DIAGNOSTIC St Jason 1 805499 938271 799373 398977 30 WIRE .035 260cm J wire (944505) MULTIPACK Cardinal 1 786422 5 Pigtail 5 Fr Health catheter MULTIPACK JL Cardinal 1 690324 5 4.0 5Fr Health catheter MULTIPACK Cardinal 1 710292 5 3DRC 5Fr Health catheter SHEATH 6FR Terumo 1 SOY683 769342 780896 590742 40 [place] (YWZ682) INFLATOR [facility] [facility] 1 SY1408 094212 596608 402293 15 [facility] Medical BasixCompak (YM4349) CHOICE PT Shelly 1 [id number] 844722 869428 045620 5 Extra Scientific Support 182cm wire ([id number]) GUIDE 6FR HS Medtronic 1 PU4OUAS 144346 72563 427401 1 II catheter ([id number]) [place] 1 16067V 856094 873401 211405 8 [place] IVUS Catheter (94194J) INTEGRITY RX Medtronic 1 [id number] 298760 271787 564032 5 [id number] 4.0 x 30 stent ([id number]) EXOSEAL 6Fr Cardinal 1 EX600 704797 088814 017821 10 (EX600) Health Signature Audit [place] Stage Time Signature Unsigned Intra-Procedure 03/27/2018 Nancy Rubio 8:37:54 AM RT(R) Signatures Monitor : Nancy Rubio RT Signature : Date : Time : [place] [id number] [place] [address]
[2018-03-26] MEDS ORDERED: ESTRACE 0.5 MG0.5 MG PO (13:56)
--- NOTE | 2018-03-26 14:04 | NUR ---
PT RATED C/P 10/10 PRIOR TO INITIAL SL NITRO, PT CURRENTLY RATES CP 10/10, NO CHANGE. BP 90/60, UNABLE TO ADMINISTER SECOND NITRO D/T RISK OF PT'S BP HAVING ANOTHER SIGNIFICANT DECREASE.
[2018-03-26 14:12] LABS: BASOPHILS 0.4 % (0-2); EOSINOPHILS 2.9 % (0-7); HEMATOCRIT 36.2 % (36.0-48.0); HEMOGLOBIN 12.2 g/dL (12-16); IMMATURE GRANULOCYTES 0.2 % (0-5); LYMPHOCYTES 37.6 % (15-50); MCH 29.3 pg (26.0-34.0); MCHC 33.7 g/dL (31.0-37.0); MEAN PLATELET VOLUME 9.8 fL (7.4-10.4); MONOCYTES 9.9 % (2-11); PLATELET COUNT 247 10x3/uL (130-400); RBC 4.16 10x6/uL (4.00-5.40); RDW 16.2 % (11.5-14.5); WBC 8.2 10x3/uL (4.8-10.8)
[2018-03-26 14:23] LABS: ALBUMIN 3.4 g/dL (3.4-5.0); ALKALINE PHOSPHATASE 77 U/L (46-116); ALT (SGPT) 25 U/L (10-68); BILIRUBIN - TOTAL 0.22 mg/dL (0.2-1.3); CALC OSMOLALITY 270 mosm/kg (275-300); CALCIUM 8.4 mg/dL (8.5-10.1); CARBON DIOXIDE 26.3 mmol/L (21.0-32.0); CHLORIDE - SERUM 99 mmol/L (98-107); CREATININE - SERUM 0.8 mg/dL (0.6-1.3); GLUCOSE 100 mg/dL (74-106); POTASSIUM - SERUM 3.9 mmol/L (3.5-5.1); PROTEIN - SERUM 7.2 g/dL (6.4-8.2); SODIUM 134 mmol/L (136-145); UREA NITROGEN 20 mg/dL (7-18); eGFR NON AFRICAN AMERICAN 78 mL/min (90-120)
[2018-03-26 14:35] LABS: CKMB 0.9 U/L (0.0-3.6); CREATINE KINASE 66 UL (21-215); PRO BNP 105 pg/mL (0-125)
[2018-03-26 14:36] LABS: TROPONIN-I < 0.017 ng/mL (0.000-0.060)
--- NOTE | 2018-03-26 16:03 | NUR ---
PT LYING IN BED, RESTING WITH NO SIGNS OF DISTRESS. RESPIRATIONS EVEN AND UNLABORED. CALL LIGHT IN REACH. FAMILY AT THE BEDSIDE. PT AWARE SHE IS BEING ADMITTED TO [facility], AWAITING BED ASSIGNMENT.
--- NOTE | 2018-03-26 16:56 | NUR ---
PT GIVEN AHA TRAY UPON REQUEST AFTER NURSE VERIFIED WITH ALMOND PASTE MOLDER THAT PT WAS HAVING PROCEDURE TOMORROW. PT WAKES EASILY TO VERBAL STIMULI. RESPIRATIONS EVEN AND UNLABORED. CALL LIGHT IN REACH, WILL CONTINUE TO MONITOR.
--- NOTE | 2018-03-26 18:22 | NUR ---
PT SITTING IN SEMI-BOLAÑOS'S, RESPIRATIONS EVEN AND UNLABORED. FAMILY AT THE BEDSIDE. PT GIVEN AHA DINNER TRAY REQUESTED. PT STATES NAUSEA IS IMPROVED FOLLOWING IV ZOFRAN.
[2018-03-26 19:00] VITALS: BP 96/56
--- NOTE | 2018-03-26 19:08 | NUR ---
HAND-OFF REPORT GIVEN TO THOMAS CAICEDO.
--- NOTE | 2018-03-26 19:40 | NUR ---
PT SLEEPING ON BED. PT WAKES TO VERBAL STIMULI. PT C/O PAIN.
[2018-03-26 22:23] VITALS: BP 96/56; Ht 154.9 cm; Wt 61.9 kg
--- NOTE | 2018-03-26 23:16 | NUR ---
RECIEVED REPORT FROM SASCHA IN ER AT 2005. ARRIVED TO FLOOR IN W/C ASSISTED BY STAFF AT 2018. ALERT AND ORIENTED X4. UP AD [facility] REPOTED TO BE SCHEDULED FOR CARDIAC CATH IN AM. TELEMETRY IN PLACE AND HR 74 SINUS. O2@ 2 LITERS PER N/C IN PLACE. RESP EVEN AND UNLABORED. IV TO LEFT HAND SL.. DENIES ANY CHEST PAIN AT THIS TIME. DENIES ANY OTHER NEEDS EXCEPT SLEEP.
[2018-03-27 04:00] VITALS: BP 124/68
--- NOTE | 2018-03-27 07:21 | NUR ---
ALERT AND ORIENTED. RIGHT HAND SL. O2 AT 2 L/M. NPO FOR CATH. PRE OP GIVEN. TO TEST MAN PER BED
--- NOTE | 2018-03-27 09:00 | NUR ---
BACK FROM DENTAL TECH. SLEEPING BUT AROUSES T0 VOICE. RIGHT GROIN SOFT WITH DRSG DRY AND INTACT.PPP VITAL SIGNS STABLE. SR UP WITH CALL LIGHT IN REACH. TELEMERTY SHOWS SR.
[2018-03-27] MEDS ORDERED: PLAVIX75 MG PO (09:31)
--- NOTE | 2018-03-27 09:39 | NUR ---
I CALLED ELMER, PHARMACIST AT [facility] [phone] FOR PLAVIX 75 MG #30 WITH 3 REFILLS.
[2018-03-27 09:47] VITALS: BP 128/69
--- NOTE | 2018-03-27 10:23 | DS ---
PATIENT:HERMINIA CHOPRA :60 MEDICAL RECORD: [id number] DISCHARGE SUMMARY ADMISSION DATE: 03/26/18 DISCHARGE DATE: DATE OF SERVICE: 03/27/2018 DIAGNOSES: 1. Angina. 2. Coronary artery disease. 3. Percutaneous transluminal coronary angioplasty stent right coronary artery this admission. 4. Hyperlipidemia. 5. Shortness of breath, dyspnea on exertion. HOSPITAL COURSE: Mrs. Chopra presents with angina, shortness of breath, dyspnea on exertion. She had a past history of PTCA stent of the RCA. She underwent cardiac catheterization revealing wide patency of the previously placed stents, but new disease up to 80% stenosis of the RCA, underwent successful PTCA stent of the RCA with no further symptomatology. Discharged home to continue aspirin and Plavix. We will follow up with [facility] in 1 month. TRANSINT:[id number] Voice Confirmation ID: [id number] DOCUMENT ID: [id number] RAYMON TOBIN MD at 1023 CC: [id number] DICTATION DATE: 03/27/18829 WATCH CASER: 03/27/18 0842 ADM IN [facility] [address] [place] [id number]
--- NOTE | 2018-03-27 10:23 | OP ---
PATIENT NAME: HERMINIA CHOPRA MEDICAL RECORD: [id number] :60 LOCATION:D.M2 D.2124 ADMISSION DATE:03/26/18 SURGEON: RAYMON TOBIN MD DATE OF OPERATION: 03/27/2018 PROCEDURES: 1. PTCA stent RCA. 2. Intravascular ultrasound. 3. Left heart catheterization. 4. Selective coronary angiography. 5. Left ventriculogram. INDICATION: Unstable angina and coronary artery disease. PROCEDURE IN DETAIL: After informed consent was obtained and after a detailed description of the risks, benefits as well as alternative therapies, the patient elected to proceed with angiogram and angioplasty. The right femoral area was prepped and draped in normal sterile fashion. Right femoral artery was cannulated via modified Seldinger technique with placement of 6-Pashto sheath. All catheters exchanged through this sheath. FINDINGS: Left ventriculogram was performed in standard 30-degree FERRARA view, reveals good cardiac wall motion throughout all segments. Overall ejection fraction estimated 60%. SELECTIVE CORONARY ANGIOGRAPHY: 1. Left main is with no significant angiographic disease. 2. Left anterior descending has moderate irregularities, but no discrete flow-limiting stenosis. 3. The left circumflex small diffusely diseased with [id number] irregularities, but no discrete flow-limiting stenosis. 4. The right coronary has previously placed stents. The stents are widely patent; however, intravascular ultrasound reveals that there is 75% to 80% stenosis in the mid vessel. PTCA STENT OF THE RCA: The stent used was a 4.0 x 30 mm Integrity. Result was 0% residual stenosis. OVERALL IMPRESSION: Successful percutaneous transluminal coronary angioplasty stent of the right coronary artery going from 80% initial stenosis to 0% residual. TRANSINT:[id number] Voice Confirmation ID: [id number] DOCUMENT ID: [id number] RAYMON TOBIN MD at 1023 CC: [id number] DICTATION DATE: 03/27/1829 SYSTEM SUPPORT DEVELOPER: 03/27/18 0839 [place] [address]
--- NOTE | 2018-03-27 12:34 | NUR ---
PT DCD. RIGHT GROIN SOFT WITH DRSG DRY AND INTACT. IV DCD WITH TIP INTACT. INSTRUCTIONS GIVEN TO PT AND FAMILY. TO PRIVATE CAR PER WHEELCHAIR
--- NOTE | 2018-03-28 08:23 | MORECARE ---
CASE MANAGEMENT DISCHARGE SUMMARY PATIENT: HERMINIA CHOPRA UNIT: [id number] ADM DATE: 03/26/18 AGE: 57 : 60 SEX: F ROOM/BED: D.6764 AUTHOR: MARY BILL PHYSICIAN: REFERRING PHYSICIAN: RAYMON TOBIN MD DATE OF SERVICE: 03/28/18 Discharge Plan Patient Name: HERMINIA [facility]OPRA [facility] [facility] 1960 Planned Disposition: Anticipated Discharge Date: 03/28/18 Discharge Date: 03/27/2018 Expected LOS: 2 Initial Reviewer: [email or web address] Initial Review Date: 03/28/2018 Generated: 03/28/18 9:23 am Patient Name: HERMINIA CHOPRA Page [id number] at 0823 All edits/amendments must be made on the electronic document DICTATION DATE: 03/28/18821 PADDED PRODUCTS FINISHER: LINDA 03/28/18821 RPT#: [id number] DC DATE:03/27/18 STATUS: DIS IN [facility] [address] [place] [address] END OF REPORT
--- NOTE | 2018-03-29 18:15 | HP ---
PATIENT: HERMINIA CHOPRA MEDICAL RECORD: [id number] ACCOUNT: [id number] LOCATION:[address] : 60 ADMISSION DATE: 03/26/18 PCP: DEMOND CORTES HISTORY AND PHYSICAL EXAMINATION DIAGNOSES: 1. Unstable angina. 2. Coronary artery disease. 3. Previous percutaneous transluminal coronary angioplasty stent. 4. Hyperlipidemia. HISTORY OF PRESENT ILLNESS: Mrs. Chopra presents with 1 week of arm pain as this has now progressed to chest pain like that of her previous angina. She does have a history of cardiac stenting, the last being in 01/20. Her EKG has nonspecific ST-T abnormalities. She continues to have episodic pain. PHYSICAL EXAMINATION: GENERAL APPEARANCE: Well-nourished, well-developed, appears stated age. Level of distress, comfortable. PSYCHIATRIC: Mental status, alert, normal affect. Orientation, oriented to time, place and person. EYES: Lids and conjunctiva, noninjected. No discharge, no pallor. ENT: Lips, teeth, gums, normal dentition. Oropharynx, no cyanosis, no pallor. NECK: Carotid arteries, bilateral normal upstroke, no bruits, no thrills. JUGULAR VEINS: No jugular venous pressure or distention. CERVICAL LYMPH NODES: Nontender, nonenlarged. THYROID: Not enlarged. Nontender. No nodules. LUNGS: Respiratory effort, unlabored. CHEST: Normal curvature. No thoracic deformity. No chest wall tenderness. Percussion, resonant. Auscultation, clear. No wheezes, no rales, no rhonchi. CARDIOVASCULAR: Precordial exam, nondisplaced. No heaves or pericardial thrills. Rate and rhythm, regular. Heart sounds, normal S1, normal S2. No S3, no gallop, no rub. Systolic murmur, not heard. Diastolic murmur, not heard. EXTREMITIES: No cyanosis, no edema. Peripheral pulses, full and equal in all extremities, except as noted. No bruits appreciated. ABDOMEN: Soft, nondistended. Normal aorta. No bruit. Nontender. No masses. Liver, nontender, no hepatomegaly. Spleen, nontender, no splenomegaly. MUSCULOSKELETAL: No joint tenderness. No joint swelling. No erythema. NEUROLOGICAL: Normal gait, normal strength, normal tone. SKIN: Warm and dry. OVERALL IMPRESSION: Chest pain just like that of her previous angina, escalating unstable fashion, most likely she has recurrent hemodynamically significant coronary artery disease. We will load her with Plavix, proceed with coronary angiography in the a.m. Further care depends upon the findings of the angiography. TRANSINT:[id number] Voice Confirmation ID: [id number] DOCUMENT ID: [id number] HISTORY AND PHYSICAL [id number] HERMINIA CHOPRA JEFFREY MD at 1815 CC: [id number] DICTATION DATE: 03/26/18 1443 SPLITTING MACHINE OPERATOR HELPER: 03/26/18 1503 DIS IN 03/27/18 [facility] [address] [place] [address]
== END 2018-03-27 12:36 | disposition home or self-care (01) ==
LOC: D.ER 13:22 → OBSVTIME 19:17 → D.M2 19:17
PROVIDERS: Emergency Medicine; ADMIT Internal Medicine Interventional Cardiology
DX: I25.110 Atherosclerotic heart disease of native coronary artery with unstable angina pectoris (principal); Z95.5 Presence of coronary angioplasty implant and graft; E78.5 Hyperlipidemia, unspecified

== ENCOUNTER 2018-03-27 19:21 | Observation (INO) | payer OTHER ==
[~2018-03-27] VITALS: Ht 154.9 cm; Wt 63.5 kg
[~2018-03-27 19:21] MED LIST changes: +ESTRACE 0.5 MG0.5 MG PO
[2018-03-27 19:53] LABS: BASOPHILS 0.2 % (0-2); EOSINOPHILS 1.9 % (0-7); HEMATOCRIT 38.2 % (36.0-48.0); HEMOGLOBIN 12.6 g/dL (12-16); IMMATURE GRANULOCYTES 0.3 % (0-5); LYMPHOCYTES 18.7 % (15-50); MCH 29.1 pg (26.0-34.0); MCV 88.2 fL (80.0-100.0); MEAN PLATELET VOLUME 9.9 fL (7.4-10.4); MONOCYTES 8.2 % (2-11); NEUTROPHILS 70.7 % (40-80); PLATELET COUNT 246 10x3/uL (130-400); RBC 4.33 10x6/uL (4.00-5.40); RDW 16.1 % (11.5-14.5)
[2018-03-27 20:02] LABS: WBC 11.1 10x3/uL (4.8-10.8)
[2018-03-27 20:11] LABS: INR 1.03 (0.85-1.17)
[2018-03-27 20:19] LABS: ALBUMIN 3.4 g/dL (3.4-5.0); ALKALINE PHOSPHATASE 77 U/L (46-116); ALT (SGPT) 23 U/L (10-68); BILIRUBIN - TOTAL 0.17 mg/dL (0.2-1.3); CALCIUM 8.3 mg/dL (8.5-10.1); CHLORIDE - SERUM 101 mmol/L (98-107); CREATININE - SERUM 0.8 mg/dL (0.6-1.3); GLUCOSE 105 mg/dL (74-106); POTASSIUM - SERUM 3.9 mmol/L (3.5-5.1); PROTEIN - SERUM 7.3 g/dL (6.4-8.2); SODIUM 138 mmol/L (136-145); eGFR NON AFRICAN AMERICAN 78 mL/min (90-120)
[2018-03-27 20:27] LABS: CALC OSMOLALITY 275 mosm/kg (275-300); UREA NITROGEN 12 mg/dL (7-18)
[2018-03-27 20:29] LABS: CKMB 0.8 U/L (0.0-3.6); CREATINE KINASE 71 UL (21-215); MAGNESIUM - SERUM 1.8 mg/dL (1.8-2.4); TROPONIN-I 0.053 ng/mL (0.000-0.060)
[2018-03-28] VITALS: BP 100/57
--- NOTE | 2018-03-28 00:16 | NUR ---
PATIENT ARRIVED FROM ER VIA WHEELCHAIR. PATIENT IS ALERT AND ORIENTED. RESPIRATIONS ARE EVEN AND UNLABORED. NO S/S OF DISTRESS. NO C/O PAIN. PATIENT VERBALIZED NO NEEDS AT THIS TIME. CALL LIGHT WITHIN REACH. WILL CPOC.
[2018-03-28 01:06] VITALS: BP 100/57; Ht 154.9 cm; Wt 63.5 kg
--- NOTE | 2018-03-28 01:56 | NUR ---
LAB CALLED WITH ELEVATED TROPONIN 0.156. SPOKE WITH CHARGE NURSE AND TREE TRIMMER HELPER WILL CONTINUE TO MONITOR AND CALL PHYSICIAN IF NEEDED .
[2018-03-28 04:00] VITALS: BP 89/49
--- NOTE | 2018-03-28 08:49 | MORECARE ---
CASE MANAGEMENT DISCHARGE SUMMARY PATIENT: HERMINIA CHOPRA UNIT: [id number] ADM DATE: 03/27/18 AGE: 57 : 60 SEX: F ROOM/BED: D.2122 AUTHOR: MARY BILL PHYSICIAN: REFERRING PHYSICIAN: RAYMON TOBIN MD DATE OF SERVICE: 03/28/18 Discharge Plan Patient Name: HERMINIA CHOPRA Facility: [facility]:[place] : 1960 Planned Disposition: Home Anticipated Discharge Date: 03/28/18 Discharge Date: Expected LOS: 1 Initial Reviewer: [email or web address] Initial Review Date: 03/28/2018 Generated: 03/28/18 9:49 am Patient Name: HERMINIA CHOPRA Page [id number] at 0849 All edits/amendments must be made on the electronic document DICTATION DATE: 03/28/18847 ANODE CREW SUPERVISOR: LINDA 03/28/1848 RPT#: [id number] DC DATE: STATUS: ADM IN [facility] [address] [place] [address] END OF REPORT
--- NOTE | 2018-03-28 08:50 | NUR ---
DC GIVEN TO PT
--- NOTE | 2018-03-28 08:52 | NUR ---
DC HOME PER PERSONAL CAR
--- NOTE | 2018-03-29 18:15 | DS ---
PATIENT:HERMINIA CHOPRA :60 MEDICAL RECORD: [id number] DISCHARGE SUMMARY ADMISSION DATE: 03/27/18 DISCHARGE DATE: 03/28/18 DISCHARGE DIAGNOSES: 1. GERD. 2. Chest pain. 3. Coronary artery disease. 4. PTCA stent RCA yesterday. 5. Hyperlipidemia. HOSPITAL COURSE: Mrs. Chopra presents with recurrent chest pain different than that of her angina, most likely GERD in nature. She was loaded with Plavix in conjunction with PTCA stent of the RCA. There was no other disease. Her EKG had no changes. She is pain free at this time. Discharged home with the addition of Pepcid and possible Protonix to her medical regimen. Follow up with [facility] as previously scheduled. TRANSINT:[id number] Voice Confirmation ID: [id number] DOCUMENT ID: [id number] RAYMON TOBIN MD at 1815 CC: [id number] DICTATION DATE: 03/28/18 1000 FOREPART ROUNDER: 03/28/18 2302 DIS IN 03/28/18 [id number] [place] [address]
--- NOTE | 2018-03-29 18:15 | HP ---
PATIENT: HERMINIA CHOPRA MEDICAL RECORD: [id number] ACCOUNT: [id number] LOCATION:[address] : 60 ADMISSION DATE: 03/27/18 PCP: DEMOND CORTES HISTORY AND PHYSICAL EXAMINATION DIAGNOSES: 1. Angina. 2. Coronary artery disease. 3. Percutaneous transluminal coronary angioplasty stent right coronary artery yesterday. 4. Hyperlipidemia. 5. Gastroesophageal reflux disease. HISTORY OF PRESENT ILLNESS: Mrs. Chopra presented yesterday with anginal symptomatology, found to have significant disease of the RCA, underwent successful PTCA stent of the RCA. There was no other disease. She was discharged, came back last night with recurrent chest pain. She is pain free this morning. The chest pain she describes is more of a GERD pain. We did restart her on Plavix and load her with Plavix. PHYSICAL EXAMINATION: GENERAL APPEARANCE: Well-nourished, well-developed, appears stated age. Level of distress, comfortable. PSYCHIATRIC: Mental status, alert, normal affect. Orientation, oriented to time, place and person. EYES: Lids and conjunctiva, noninjected. No discharge, no pallor. ENT: Lips, teeth, gums, normal dentition. Oropharynx, no cyanosis, no pallor. NECK: Carotid arteries, bilateral normal upstroke, no bruits, no thrills. JUGULAR VEINS: No jugular venous pressure or distention. CERVICAL LYMPH NODES: Nontender, nonenlarged. THYROID: Not enlarged. Nontender. No nodules. LUNGS: Respiratory effort, unlabored. CHEST: Normal curvature. No thoracic deformity. No chest wall tenderness. Percussion, resonant. Auscultation, clear. No wheezes, no rales, no rhonchi. CARDIOVASCULAR: Precordial exam, nondisplaced. No heaves or pericardial thrills. Rate and rhythm, regular. Heart sounds, normal S1, normal S2. No S3, no gallop, no rub. Systolic murmur, not heard. Diastolic murmur, not heard. EXTREMITIES: No cyanosis, no edema. Peripheral pulses, full and equal in all extremities, except as noted. No bruits appreciated. ABDOMEN: Soft, nondistended. Normal aorta. No bruit. Nontender. No masses. Liver, nontender, no hepatomegaly. Spleen, nontender, no splenomegaly. MUSCULOSKELETAL: No joint tenderness. No joint swelling. No erythema. NEUROLOGICAL: Normal gait, normal strength, normal tone. SKIN: Warm and dry. OVERALL IMPRESSION: Chest pain, most likely at this time, this was acute GERD and not acute coronary. Her EKG is with no changes. At this time, I would have her start [id number] Protonix along with Pepcid, but no other cardiac workup or treatment is necessary. TRANSINT:[id number] Voice Confirmation ID: [id number] DOCUMENT ID: [id number] HISTORY AND PHYSICAL [id number] HERMINIA CHOPRA JEFFREY MD at 1815 CC: [id number] DICTATION DATE: 03/28/18 1000 BLOCK LAYER: 03/28/18 1016 DIS IN 03/28/18 [facility] [address] [place] [address]
== END 2018-03-28 08:52 | disposition home or self-care (01) ==
LOC: D.ER 19:21 → D.EDHOLD 21:38 → OBSVTIME 21:38 → D.M2 23:35
PROVIDERS: Family Medicine; ADMIT Internal Medicine Interventional Cardiology
DX: K21.9 Gastro-esophageal reflux disease without esophagitis (principal); I25.110 Atherosclerotic heart disease of native coronary artery with unstable angina pectoris; Z95.5 Presence of coronary angioplasty implant and graft; E78.5 Hyperlipidemia, unspecified

== ENCOUNTER 2018-04-01 16:24 | Emergency (ER) | payer SELFPAY ==
[~2018-04-01] VITALS: Ht 154.9 cm; Wt 64.1 kg
[2018-04-01 16:32] VITALS: Ht 154.9 cm; Wt 64.1 kg
[2018-04-01] MEDS ORDERED: ROBAXIN500 MG PO (18:49)
[2018-04-01] MEDS ORDERED: TYLENOL W/CODEI1 TAB PO (18:49)
[2018-04-01 19:18] VITALS: BP 140/82
== END 2018-04-01 19:18 | disposition home or self-care (01) ==
LOC: D.ER 16:24
DX: M79.18 Myalgia, other site (principal); W10.9XXA Fall (on) (from) unspecified stairs and steps, initial encounter; Y93.89 Activity, other specified; Y92.019 Unspecified place in single-family (private) house as the place of occurrence of the external cause; Z79.01 Long term (current) use of anticoagulants

== ENCOUNTER 2018-04-09 12:17 | Emergency (ER) | payer OTHER ==
[~2018-04-09] VITALS: Ht 154.9 cm; Wt 62.7 kg
[~2018-04-09 12:17] MED LIST changes: -BACLOFEN10 MG; +BACLOFEN10 MG PO; +ROBAXIN500 MG PO; +TYLENOL W/CODEI1 TAB PO
[2018-04-09 12:35] VITALS: Ht 154.9 cm; Wt 62.7 kg
[2018-04-09 16:56] VITALS: BP 140/86
== END 2018-04-09 16:57 | disposition home or self-care (01) ==
LOC: D.ER 12:17
DX: M54.16 Radiculopathy, lumbar region (principal); F17.200 Nicotine dependence, unspecified, uncomplicated

== ENCOUNTER 2018-04-25 03:58 | Observation (INO) | payer OTHER ==
[2018-04-25] VITALS (10 sets, daily range): BP systolic 92–130; BP diastolic 59–108; Ht 154.9 cm; Wt 61.4 kg
[~2018-04-25] VITALS: Ht 154.9 cm; Wt 61.4 kg
--- NOTE | ~2018-04-25 | HEMODYNAMI ---
PATIENT:HERMINIA CHOPRA MEDICAL RECORD: [id number] : 60 [id number] ADMISSION DATE: 04/25/18 Generatedon:04/25/20189:09 Patient name: HERMINIA CHOPRA Patient #: [id number] SSN: DO B: 1960 Date of study: 04/25/2018 Page: Of Hemodynamic Procedure Report Patient Data Patient Demographics Procedure consent was obtained First Name: HERMINIA Gender: Female Last Name: NAV : 1960 Middle Initial: A Age: 57 year(s) Patient #: [id number] Race: Unknown Additional ID: [id number] Contact details [address]: [address] [place] [address] State: [place] City: [place] Zip code: [address] Past Medical History Allergies Allergen Reaction Date Comments Reported Other allergy 04/25/2018 [place] Admission Admission Data Admission Date: 04/25/2018 Admission Time: 5:44 Room #: D.2129 Height (in.): 60.98 BSA: 1.6 (m2) Height (cm.): 154.9 BMI: 25.55 (kg/m2) Weight (lbs.): 135.14 Weight (kg.): 61.3 Lab Results Lab Result Date: 04/25/2018 Lab Result Time: 0:00 Biochemistry Name Units Result Min Max BUN mg/dl 10 --(-*--)-- 7 18 Creatinine mg/dl 0.8 --(-*--)-- 0.6 1.3 CBC Name Units Result Min Max Hemoglobin g/dl 12.6 -*(----)-- 13.5 17.5 Procedure Procedure Types Cath Procedure Diagnostic Procedure [facility] w/Coronaries FFR/IVUS Intra-Coronary IVUS Initial Sedation Charges Moderate Sedation up to 15 minutes PCI Procedure Coronary Stent Coronary Stent Initial Procedure Description Procedure Date Procedure Date: 04/25/2018 Procedure Start Time: 8:46 Procedure End Time: 9:04 Procedure Staff Name Function Kentrell Denson MD Performing Physician Adali Beauchamp RT Monitor Ravi Hunter RN Nurse Nancy Rubio RT Scrub Sonia Zamorano RT Scrub Procedure Data Cath Procedure Fluoroscopy Diagnostic fluoroscopy Total fluoroscopy Time: 3.6 time: 3.6 min min Diagnostic fluoroscopy Total fluoroscopy dose: 171 dose: 171 mGy mGy Contrast Material Contrast Material Type Amount (ml) Isovue 300 78 Entry Location Entry Primary Successful Side Size Upsize Upsize Entry Closure Succes sful Closure Location (Fr) 1 (Fr) 2 (Fr) Remarks Device Remarks Femoral Right 5 Fr 6 Fr Exoseal artery Short Estimated blood loss: 10 ml Diagnostic catheters Device Type Used For End Catheter Placement MULTIPACK Pigtail 5 Fr Procedure catheter MULTIPACK JL 4.0 5Fr Procedure catheter MULTIPACK 3DRC 5Fr Procedure catheter Procedure Complications No complications Procedure Medications Medication Administration Route Dosage 0.9% NaCl I.V. 100 ml/hr Oxygen etCO2 Nasal cannula 2 l/min Heparin Flush Bag added to field 2 bags (1000units/500ml NS) Lidocaine 2% 20 Versed I.V. 2 mg Fentanyl I.V. 100 mcg Versed I.V. 1 mg Heparin Bolus I.V. 4000 units Hemodynamics Rest BSA: 1.6 (m2) HGB: 12.6 (g/dl) O2 Consumption: Estimated: 156.35 (ml/min) O2 Con sumption indexed: Estimated:97.72 (ml/min/m) Heart Rate: 75 (bpm) Snapshots Pre Cath Intra NCS Post Cath Vital Signs Time Heart Resp SPO2 etCO2 NIBP (mmHg) Rhythm Pain Sedation Rate (ipm) (%) (mmHg) Status Level (bpm) 8:36:05 73 14 91 44.8 124/83(108) NSR 0 (11) 10(A) , No pain 8:40:15 76 11 94 41 117/84(97) NSR 0 (11) 10(A) , No pain 8:44:25 77 12 96 29.8 116/77(95) NSR 0 (11) 10(A) , No pain 8:48:35 76 17 92 33.6 117/77(94) NSR 0 (11) 9(A) , No pain 8:52:38 80 14 92 0 127/75(98) NSR 0 (11) 9(A) , No pain 8:56:40 86 14 92 14.1 132/83(107) NSR 0 (11) 9(A) , No pain 9:00:38 83 28 96 26.1 117/79(90) NSR 0 (11) 10(A) , No pain 9:04:35 85 21 97 35 116/73(100) NSR 0 (11) 10(A) , No pain Medications Time Medication Route Dose Verified Delivered Reason Notes Effectiveness by by 8:37:15 0.9% NaCl I.V. 100 Ravi Ravi Per physician ml/hr Elsa Hunter RN RN 8:37:27 Oxygen etCO2 2 Ravi Ravi for low 02 sats Nasal l/min Elsa Hunter cannula RN RN 8:37:39 Heparin Flush added 2 Ravi Ravi used for Bag to bags Elsa Hunter procedure (1000units/500ml field RN RN NS) 8:37:49 Lidocaine 2% 20ml Ravi Ravi for local vial Elsa Hunter anesthetic RN RN 8:44:34 Versed I.V. 2 mg Ravi Ravi for sedation Elsa Hunter RN RN 8:44:41 Fentanyl I.V. 100 Ravi Ravi for sedation mcg Elsa Hunter RN RN 8:47:28 Versed I.V. 1 mg Ravi Ravi for sedation Elsa Hunter RN RN 8:58:50 Heparin Bolus I.V. 4000 Ravi Ravi for units Elsa Hunter anticoagulation RN security sme Log Time Note 8:11:50 Patient Height : 60.98 inches 8:11:56 Patient Weight : 135.14 lbs 8:12:23 Lab Result : Hemoglobin 12.6 g/dl 8:12:23 Lab Result : Creatinine 0.8 mg/dl 8:12:23 Lab Result : BUN 10 mg/dl 8:13:19 Diagnostic Cath status Elective 8:13:22 Adali SHELLEY(R) sent for patient. Start room use. 8:13:23 Time tracking: Regular hours (M-F 7:00 - 5:00) 8:13:28 Plan of Care:Hemodynamics will remain stable., Cardiac rhythm will remain stable., Comfort level will be maintained., Respiratory function will remain adequate., Patient/ family verbilizes understanding of procedure., Procedure tolerated without complication., Recovers from procedure without complications.. 8:28:44 Patient received from Med II to CCL 3 Alert and oriented. Tansferred to table in Supine position. 8:28:44 Warm blankets applied, and genevieve hugger turned on for patient comfort. 8:28:45 Correct patient and procedure confirmed by team. 8:28:46 Signed procedure consent form obtained from patient. 8:28:48 ECG and BP/O2 sat monitors applied to patient. 8:29:40 H&P Date Dictated: 04/24/2018 Within 30 days and on chart., H&P Addendum completed by physician on day of procedure. (MUST COMPLETE FOR ALL OUTPATIENTS). 8:29:42 Pre-procedure instructions explained to patient. 8:29:51 Family in patients room. 8:29:54 Patient NPO since Midnight. 8:30:05 Patient allergic to Other allergyNitro 8:30:08 Is the patient allergic to Iodine/contrast media? No. 8:30:09 Was the patient premedicated? Yes 8:30:11 Is patient on blood thinner?Yes 8:30:15 ACC The patient was administered the following blood thiners within the last 24 hours: ACCPlavix 8:30:18 Patient diabetic? No. 8:30:28 Snore? Yes 8:30:29 Sleep apnea? Yes 8:30:35 Dentures? Yes ? 8:30:45 Patient pain scale 0/10 ?. 8:30:51 IV patent on arrival in right forearm with 0.9% NaCl at KVO. 8:30:56 Lab results completed and on chart. 8:31:03 Right groin area was prepped with chlora-prep and draped in sterile fashion 8:31:06 Alarms reviewed by R. N. 8:31:06 Sharps counted by scrub and verified by R.N. 8:35:01 Vital chart was started 8:35:03 Baseline sample Acquired. 8:35:07 Rhythm: sinus rhythm 8:35:10 Full Disclosure recording started 8:37:15 0.9% NaCl 100 ml/hr I.V. was administered by Ravi Hunter RN; Per physician; 8:37:27 Oxygen 2 l/min etCO2 Nasal cannula was administered by Ravi Hunter RN; for low 02 sats; 8:37:39 Heparin Flush Bag (1000units/500ml NS) 2 bags added to field was administered by Ravi Hunter RN; used for procedure; 8:37:49 Lidocaine 2% 20ml vial was administered by Ravi Hunter RN; for local anesthetic; 8:42:27 Physician arrived 8:42:28 --------ALL STOP TIME OUT------ 8:42:28 Final Timeout: patient, procedure, and site verified with staff and physician. All members of the team are in agreement. 8:42:30 Right groin site verified by team. 8:42:36 Fire Safety Assessment: A--An alcohol-based skin anteseptic being used preoperatively., C--Open oxygen or nitrous oxide is being used., D--An ESU, laser, or fiber-optic light is being used. 8:42:41 Physical assessment completed. ASA score P 2 - A patient with mild systemic disease as per Kentrell Denson MD. 8:42:45 Sedation plan: IV Moderate Sedation Medication:Versed, Fentanyl 8:42:54 Use device set Femoral Dx 8:42:55 ACIST Syringe (42716) opened to sterile field. 8:42:56 Bag Decanter (2002S) opened to sterile field. 8:42:56 Medline Cath Pack ([id number]) opened to sterile field. 8:42:57 DIAGNOSTIC WIRE .035 260cm J wire (612333) opened to sterile field. 8:42:58 ACIST Hand Control (73491) opened to sterile field. 8:42:58 ACIST Manifold (83073) opened to sterile field. 8:42:59 DIAGNOSTIC Multipack 5Fr catheter set (RD3064) opened to sterile field. 8:42:59 Tegaderm 4 x 4 (1626W) opened to sterile field. 8:43:01 SHEATH 5FR [place] (ROL540) opened to sterile field. 8:43:06 Procedure started. 8:44:34 Versed 2 mg I.V. was administered by Ravi Hunter RN; for sedation; 8:44:41 Fentanyl 100 mcg I.V. was administered by Ravi Hunter RN; for sedation; 8:46:09 Local anesthetic to right femoral artery with Lidocaine 2% by Kentrell Denson MD.INITIAL ACCESS ONLY 8:46:22 A 5 Fr sheath was inserted into the Right Femoral artery 8:46:33 J wire advanced. 8:46:59 A MULTIPACK Pigtail 5 Fr catheter was advanced over the wire and used for Procedure. 8:47:01 LV angiography performed. 8:47:28 Versed 1 mg I.V. was administered by Ravi Hunter RN; for sedation; 8:47:30 EF : 50 % 8:47:32 Catheter removed. 8:48:02 A MULTIPACK JL 4.0 5Fr catheter was advanced over the wire and used for Procedure. 8:49:25 LCA angiography performed. 8:49:27 Catheter removed. 8:49:34 A MULTIPACK 3DRC 5Fr catheter was advanced over the wire and used for Procedure. 8:49:42 RCA angiography performed. 8:55:26 Catheter removed. 8:55:36 INFLATOR Merit BasixCompak (HT9742) opened to sterile field. 8:55:36 CHOICE PT Extra Support 182cm wire ([id number]) opened to sterile field. 8:55:37 SHEATH 6FR [place] (TZK065) opened to sterile field. 8:55:38 [place] IVUS Catheter (67280Q) opened to sterile field. 8:55:40 Proceeding to intervention. 8:55:51 Sheath upsized to a 6 Fr Short. 8:56:00 6 Fr ? guide catheter was inserted over the wire 8:56:39 Wire advanced across lesion. 8:56:40 IVUS catheter advanced over wire. 8:57:49 IVUS catheter removed over wire. 8:58:50 Heparin Bolus 4000 units I.V. was administered by Ravi Hunter RN; for anticoagulation; 8:59:44 Place stent Inflation Number: 1 A INTEGRITY RX 2.5 x 26 stent ([id number]) was prepped and advanced across the Mid LAD. The stent was deployed at 11 KEDAR for 0:06 (min:sec). 9:00:33 Wire removed. 9:00:35 Guide catheter removed. 9:00:44 Sheath removed intact; hemostasis achieved with Exoseal to the Right Femoral artery. 9:00:55 EXOSEAL 6Fr (EX600) opened to sterile field. 9:00:58 Procedure ended.(Physican Out) 9:01:15 Fluoroscopy time 03.60 minutes. 9:01:21 Fluoroscopy dose: 171 mGy 9:01:21 Flurop Dose total: 171 9:01:33 Contrast amount:Isovue 300 78ml. 9:01:36 Sharps counted by scrub and verified by R.N. 9:01:40 Insertion/operative site no bleeding no hematoma. 9:03:08 Post-op/insertion site Right Femoral artery dressed using a 4 x 4 and Tegaderm. 9:03:10 Post Procedure Pulses reassessed and unchanged 9:03:14 Post-procedure physical assessment completed. ASA score P 2 - A patient with mild systemic disease as per Kentrell Denson MD. 9:03:19 Post procedure rhythm: sinus rhythm 9:03:21 Estimated blood loss: 10 ml 9:03:23 Post procedure instruction explained to patient.Patient verbalizes understanding. 9:03:55 Procedure type changed to Cath procedure, Diagnostic procedure, LHC, LHC w/Coronaries, FFR/IVUS, Intra-Coronary IVUS Initial, Sedation Charges, Moderate Sedation up to 15 minutes, PCI procedure, Coronary Stent, Coronary Stent Initial 9:03:57 Procedure and supply charges have been captured, reviewed, submitted and are correct. 9:04:16 Procedure Complication : No complications 9:04:18 Vital chart was stopped 9:04:19 See physician's report for complete and final results. 9:04:20 Report given to Pre/Post Procedure Room. 9:04:23 Patient transfered to Pre/Post Procedure Room with Stretcher. 9:04:25 Procedure ended. 9:04:25 Full Disclosure recording stopped 9:04:28 End room use (Document Last) Intervention Summary Intervention Notes Time ActionType Lesion and Equipment Action# Pressure Duration Attributes Used 8:59:44 Place stent Mid LAD INTEGRITY RX 1 11 00:06 2.5 x 26 stent ([id number]) Device Usage Item Name Manufacture Quantity Catalog Number Hospital Part Current Mini mal Lot# / Charge Number Stock Stock Serial# Code [facility] Acist 1 22204 812556 117879 013984 20 Syringe VIRxSYS (43129) Systems Inc Bag Decanter Microtek 1 947969 21966 903198 5 () Medical Inc. Medline Cath Medline 1 [id number] 430056 87726 234302 5 Pack ([id number]) DIAGNOSTIC St Jason 1 248921 610766 121503 453945 30 WIRE .035 260cm J wire (746085) ACIST Hand Acist 1 93290 363529 798470 406539 5 Control Medical (67218) Systems Inc ACIST Acist 1 27850 858155 167496 231366 5 Manifold Medical (10330) Systems Inc DIAGNOSTIC Cardinal 1 NU8455 608567 18496 751183 30 Multipack Health 5Fr catheter set (UP5712) Tegaderm 4 x 3M 1 1626W 276940 849184 759745 5 4 (1626W) SHEATH 5FR Terumo 1 LSH611 235898 167707 162665 5 [place] (XRW993) MULTIPACK Cardinal 1 360857 5 Pigtail 5 Fr Health catheter MULTIPACK JL Cardinal 1 727429 5 4.0 5Fr Health catheter MULTIPACK Cardinal 1 625531 5 3DRC 5Fr Health catheter INFLATOR Merit 1 CO6824 328881 758096 103001 15 [facility] Medical BasixCompak (LJ8239) CHOICE PT [place] 1 [id number] 456959 465802 682861 5 Extra Scientific Support 182cm wire ([id number]) SHEATH 6FR Terumo 1 VOU166 473556 246995 461988 40 [place] (GTN284) [place] 1 45130K 109093 687229 908538 8 [place] IVUS Catheter (80635O) INTEGRITY RX Medtronic 1 [id number] 472853 965591 112827 5 [id number] 2.5 x 26 stent ([id number]) EXOSEAL 6Fr Cardinal 1 EX600 060885 231887 123779 10 (EX600) Health Signature Audit [place] Stage Time Signature Unsigned Intra-Procedure 04/25/2018 Adali Beauchamp 9:09:18 AM RT(R) Signatures Monitor : Adali Beauchamp Signature : RT Date : Time : [place] [id number] [place] [id number]
[2018-04-25 04:44] LABS: BASOPHILS 0.2 % (0-2); EOSINOPHILS 1.6 % (0-7); HEMATOCRIT 37.5 % (36.0-48.0); HEMOGLOBIN 12.6 g/dL (12-16); IMMATURE GRANULOCYTES 0.2 % (0-5); LYMPHOCYTES 28.3 % (15-50); MCH 29.7 pg (26.0-34.0); MCHC 33.6 g/dL (31.0-37.0); MCV 88.4 fL (80.0-100.0); MEAN PLATELET VOLUME 9.7 fL (7.4-10.4); MONOCYTES 5.4 % (2-11); NEUTROPHILS 64.3 % (40-80); PLATELET COUNT 203 10x3/uL (130-400); RBC 4.24 10x6/uL (4.00-5.40); WBC 10.8 10x3/uL (4.8-10.8)
[2018-04-25 05:01] LABS: ALBUMIN 3.7 g/dL (3.4-5.0); ALKALINE PHOSPHATASE 104 U/L (46-116); ALT (SGPT) 26 U/L (10-68); APTT 32.5 SECONDS (22.8-39.4); BILIRUBIN - TOTAL 0.16 mg/dL (0.2-1.3); CALC OSMOLALITY 283 mosm/kg (275-300); CALCIUM 8.7 mg/dL (8.5-10.1); CARBON DIOXIDE 29.1 mmol/L (21.0-32.0); CHLORIDE - SERUM 105 mmol/L (98-107); CREATININE - SERUM 0.8 mg/dL (0.6-1.3); GLUCOSE 104 mg/dL (74-106); INR 0.99 (0.85-1.17); PROTEIN - SERUM 7.4 g/dL (6.4-8.2); PROTIME 12.6 SECONDS (11.6-15.0); SODIUM 143 mmol/L (136-145); UREA NITROGEN 10 mg/dL (7-18); eGFR NON AFRICAN AMERICAN 78 mL/min (90-120)
[2018-04-25 05:03] LABS: D-DIMER-QUANTITATIVE 0.33 ug/mLFEU (0.20-0.54)
[2018-04-25 05:11] LABS: CKMB 1.2 U/L (0.0-3.6); CREATINE KINASE 98 UL (21-215); MAGNESIUM - SERUM 1.8 mg/dL (1.8-2.4); TROPONIN-I < 0.017 ng/mL (0.000-0.060)
--- NOTE | 2018-04-25 07:00 | NUR ---
RN TO DO ADMISSION ASSESSMENT.
--- NOTE | 2018-04-25 08:20 | NUR ---
PT TAKEN FOR HEART CATH VIA BED. PT'S FAMILY MEMBER AT BEDSIDE.
--- NOTE | 2018-04-25 09:06 | HP ---
PATIENT: HERMINIA CHOPRA MEDICAL RECORD: [id number] ACCOUNT: [id number] LOCATION:[address] : 60 ADMISSION DATE: 04/25/18 PCP: DEMOND CORTES HISTORY AND PHYSICAL EXAMINATION ADMITTING DIAGNOSES: 1. Chest pain compatible with angina. 2. Coronary artery disease. 3. Recent percutaneous transluminal coronary angioplasty stent to right coronary artery. 4. Gastroesophageal reflux disease. 5. Hyperlipidemia. HISTORY OF PRESENT ILLNESS: Mrs. Chopra presents with recurrent chest discomfort. She underwent PTCA stent in March. She had a recurrent episode of chest discomfort; we, at that time, directed therapy for GERD. She has had recurrent chest pain again in a worsening fashion, just like that of her previous angina. PHYSICAL EXAMINATION: GENERAL APPEARANCE: Well-nourished, well-developed, appears stated age. Level of distress, comfortable. PSYCHIATRIC: Mental status, alert, normal affect. Orientation, oriented to time, place and person. EYES: Lids and conjunctiva, noninjected. No discharge, no pallor. ENT: Lips, teeth, gums, normal dentition. Oropharynx, no cyanosis, no pallor. NECK: Carotid arteries, bilateral normal upstroke, no bruits, no thrills. JUGULAR VEINS: No jugular venous pressure or distention. CERVICAL LYMPH NODES: Nontender, nonenlarged. THYROID: Not enlarged. Nontender. No nodules. LUNGS: Respiratory effort, unlabored. CHEST: Normal curvature. No thoracic deformity. No chest wall tenderness. Percussion, resonant. Auscultation, clear. No wheezes, no rales, no rhonchi. CARDIOVASCULAR: Precordial exam, nondisplaced. No heaves or pericardial thrills. Rate and rhythm, regular. Heart sounds, normal S1, normal S2. No S3, no gallop, no rub. Systolic murmur, not heard. Diastolic murmur, not heard. EXTREMITIES: No cyanosis, no edema. Peripheral pulses, full and equal in all extremities, except as noted. No bruits appreciated. ABDOMEN: Soft, nondistended. Normal aorta. No bruit. Nontender. No masses. Liver, nontender, no hepatomegaly. Spleen, nontender, no splenomegaly. MUSCULOSKELETAL: No joint tenderness. No joint swelling. No erythema. NEUROLOGICAL: Normal gait, normal strength, normal tone. SKIN: Warm and dry. OVERALL IMPRESSION: Chest pain compatible with angina. We will proceed with coronary angiography to ensure patency of the stent. Further care depends upon findings of the angiography. TRANSINT:[id number] Voice Confirmation ID: [id number] DOCUMENT ID: [id number] HISTORY AND PHYSICAL [id number] HERMINIA CHOPRA JEFFREY MD at 0906 CC: [id number] DICTATION DATE: 04/25/18719 POWER SHOVEL OPERATOR HELPER: 04/25/18 0803 ADM IN [facility] [address] [place] [id number]
--- NOTE | 2018-04-25 09:15 | NUR ---
SPOKE WITH ANIKA FROM [employer] PARTNER HE STATES DR. TOBIN PLACED X1 STENT TO THE LAD. HE ALSO STATES HE GAVE 4000 HEPARIN, 3 VERSED, AND 100 OF FENTANYL. MAHAD WENT RIGHT FEMORAL AND CLOSED WITH A 6 MAURITANIAN EXOCIL.
--- NOTE | 2018-04-25 09:20 | NUR ---
PT RETURNED FROM SET UP WORKER. ALERT AND ORIENTED. DR. TOBIN IN ROOM SPEAKING WITH PT. RIGHT GROIN SOFT SHOWS NO S/S OF HEMATOMA DRESSING C/D/I. PT TO LAY FLAT TILL 1320. PT AWARE. PT TO DISCHARGE AFTER THE FOUR HOURS IS DONE. PP CHECKED. VS STABLE. PT'S MOM AT BEDSIDE. BED LOW. CL IN REACH.
--- NOTE | 2018-04-25 10:04 | NUR ---
RIGHT GROIN SOFT SHOWS NO S/S OF HEMATOMA DRESSING C/D/I. PP CHECKED.
[2018-04-25] MEDS ORDERED: ASPIRIN81 MG PO (10:32)
--- NOTE | 2018-04-25 10:38 | NUR ---
ALERT AND ORIENTED X4. LAYING FLAT IN BED. SINUS RHYTHM ON TELEMETRY. RT GROIN DRESSING CLEAN DRY INTACT. FREE FROM BLEEDING. FREE FROM HEMATOMA. PULSE PALPABLE BILATERALLY. FAMILY AT BEDSIDE. SAHARA HEAD RESUMES PLAN OF CARE. AGREE WITH ASSESSMENT.
--- NOTE | 2018-04-25 13:50 | NUR ---
DISCHARGE INSTRUCTIONS AND PLAVIX SCRIPT GIVEN TO PT. QUESTIONS ANSWERED. RIGHT FA 20G IV DC'D WITH CATH INTACT. TELEMETRY DC'D. CHART COPY SIGNED.
--- NOTE | 2018-04-25 14:01 | NUR ---
PT TAKEN DOWN VIA WC BY VOLUNTEER ACCOMAPNIED BY .
--- NOTE | 2018-04-27 10:08 | MORECARE ---
CASE MANAGEMENT DISCHARGE SUMMARY PATIENT: HERMINIA CHOPRA UNIT: [id number] ADM DATE: 04/25/18 AGE: 57 : 60 SEX: F ROOM/BED: D.8175 AUTHOR: MARY BILL PHYSICIAN: REFERRING PHYSICIAN: RAYMON TOBIN MD DATE OF SERVICE: 04/27/18 Discharge Plan Patient Name[facility] HERMIN[facility]OPRA [facility] [facility] 1960 Planned Disposition: Home Anticipated Discharge Date: 04/25/18 Discharge Date: 04/25/2018 Expected LOS: 1 Initial Reviewer: [email or web address] Initial Review Date: 04/27/2018 Generated: 04/27/18 11:08 am Patient Name: HERMINIA CHOPRA Page 04277 at 1008 All edits/amendments must be made on the electronic document DICTATION DATE: 04/27/18 1008 ACADEMIC SUPPORT ASSISTANT: LINDA 04/27/18 1008 RPT#: [id number] DC DATE:04/25/18 STATUS: DIS IN [facility] [address] [place] [address] END OF REPORT
--- NOTE | 2018-05-01 11:18 | DS ---
PATIENT:HERMINIA CHOPRA :60 MEDICAL RECORD: [id number] DISCHARGE SUMMARY ADMISSION DATE: 04/25/18 DISCHARGE DATE: 04/25/18 DISCHARGE DIAGNOSES: 1. Angina. 2. Coronary artery disease. 3. PTCA and stent of LAD this admission. HISTORY AND HOSPITAL COURSE: Ms. Chopra recently underwent PTCA and stent of her RCA. She continued to have anginal symptomatology. We performed repeat cardiac catheterization and intravascular ultrasound revealing significant disease of the LAD, and she underwent successful PTCA and stent of the LAD. Discharged home on no change in her medications as she is already on aspirin and Plavix. She will follow up with [facility] in 1 month. TRANSINT:[id number] Voice Confirmation ID: [id number] DOCUMENT ID: [id number] RAYMON TOBIN MD at 1118 CC: [id number] DICTATION DATE: 04/25/18 0904 REAL ESTATE MANAGEMENT SPECIALIST: 04/25/18 0921 DIS IN 04/25/18 [id number] [place] [address]
--- NOTE | 2018-05-01 11:18 | OP ---
PATIENT NAME: HERMINIA CHOPRA MEDICAL RECORD: [id number] :60 LOCATION:D.M2 D.2129 ADMISSION DATE:04/25/18 SURGEON: RAYMON TOBIN MD DATE OF OPERATION: 04/25/2018 PROCEDURES: 1. PTCA stent LAD. 2. Intravascular ultrasound. 3. Left heart catheterization. 4. Selective coronary angiography. 5. Left ventriculogram. INDICATION: Angina and coronary artery disease. PROCEDURE IN DETAIL: After informed consent was obtained and after a detailed description of risks, benefits as well as alternative therapies, the patient elected to proceed with angiogram and angioplasty. The right femoral area was prepped and draped in normal sterile fashion. Right femoral artery was cannulated via modified Seldinger technique with placement of 6-Occitan sheath. All catheters exchanged through this sheath. FINDINGS: Left ventriculogram was performed in a standard 30-degree FERRARA view, reveals good cardiac wall motion throughout all segments. Overall ejection fraction is estimated at 50%. SELECTIVE CORONARY ANGIOGRAPHY: 1. Left main showed no significant angiographic disease. 2. Left anterior descending has greater than 70% stenosis through the mid vessel confirmed by intravascular ultrasound. 3. Left circumflex has moderate irregularities, but no flow-limiting stenosis. 4. The right coronary has previously placed stents, these are widely patent. There is diffuse disease distally of the PLV and PDA. PTCA STENT OF THE LAD: The stent used was a 2.5 x 26 mm Integrity. Result was 0% residual stenosis. OVERALL IMPRESSION: Successful percutaneous transluminal coronary angioplasty stent of the left anterior descending going from greater than 70% initial stenosis to 0% residual. TRANSINT:[id number] Voice Confirmation ID: [id number] DOCUMENT ID: [id number] RAYMON TOBIN MD at 1118 CC: [id number] DICTATION DATE: 04/25/18904 POST HOLE DIGGING MACHINE OPERATOR: 04/25/18 09 DIS IN 04/25/18 [address] [place] [address]
== END 2018-04-25 14:05 | disposition home or self-care (01) ==
LOC: D.ER 03:58 → D.M2 05:44 → OBSVTIME 05:45 → D.M2 14:05
PROVIDERS: Family Medicine; ADMIT Internal Medicine Interventional Cardiology
DX: I25.119 Atherosclerotic heart disease of native coronary artery with unspecified angina pectoris (principal); K21.9 Gastro-esophageal reflux disease without esophagitis; E78.5 Hyperlipidemia, unspecified

== ENCOUNTER 2018-04-27 22:39 | Observation (INO) | payer OTHER ==
[~2018-04-27] VITALS: Ht 154.9 cm; Wt 60.3 kg
--- NOTE | ~2018-04-27 | HEMODYNAMI ---
PATIENT:HERMINIA CHOPRA MEDICAL RECORD: [id number] : 60 LOCATION:[facility] D.2122 ADMISSION DATE: 04/27/18 Generatedon:04/29/201810:32 Patient name: HERMINIA CHOPRA Patient #: [id number] SSN: DO B: 1960 Date of study: 04/29/2018 Page: Of Hemodynamic Procedure Report Patient Data Patient Demographics Procedure consent was obtained First Name: HERMINIA Gender: Female Last Name: NAV : 1960 Middle Initial: A Age: 57 year(s) Patient #: [id number] Race: Unknown Additional ID: [id number] Contact details [address]: [address] [place] [address] State: [place] City: [place] Zip code: [address] Past Medical History Allergies Allergen Reaction Date Comments Reported Other allergy 04/25/2018 Nitro Other allergy 04/29/2018 nitro Admission Admission Data Admission Date: 04/27/2018 Admission Time: 23:39 Room #: D.2122 Weight (lbs.): 132.28 Weight (kg.): 60 Lab Results Lab Result Date: 04/29/2018 Lab Result Time: 4:05 Biochemistry Name Units Result Min Max BUN mg/dl 14 --(--*-)-- 7 18 Creatinine mg/dl 0.7 --(*---)-- 0.6 1.3 CBC Name Units Result Min Max Hematocrit % 36.3 *-(----)-- 42 54 Hemoglobin g/dl 12.1 *-(----)-- 13.5 17.5 Procedure Procedure Types Cath Procedure Diagnostic Procedure [facility] w/Coron[facility] Procedure Description Procedure Date Procedure Date: 04/29/2018 Procedure Start Time: 10:20 Procedure End Time: 10:28 Procedure Staff Name Function Kentrell Denson MD Performing Physician Erick Mulligan RT Monitor Ravi Hunter RN Nurse Una Silva RT Scrub Procedure Data Cath Procedure Fluoroscopy Diagnostic fluoroscopy Total fluoroscopy Time: 0.7 time: 0.7 min min Diagnostic fluoroscopy Total fluoroscopy dose: 145 dose: 145 mGy mGy Contrast Material Contrast Material Type Amount (ml) Isovue 300 35 Entry Location Entry Primary Successful Side Size Upsize Upsize Entry Closure Succes sful Closure Location (Fr) 1 (Fr) 2 (Fr) Remarks Device Remarks Femoral Left 5 Fr Exoseal artery Estimated blood loss: 5 ml Diagnostic catheters Device Type Used For End Catheter Placement MULTIPACK Pigtail 5 Fr Procedure catheter MULTIPACK JL 4.0 5Fr Procedure catheter MULTIPACK 3DRC 5Fr Procedure catheter Procedure Complications No complications Procedure Medications Medication Administration Route Dosage 0.9% NaCl I.V. 100 ml/hr Oxygen etCO2 Nasal cannula 2 l/min Heparin Flush Bag added to field 2 bags (1000units/500ml NS) Lidocaine 2% added to field 20 Versed I.V. 2 mg Fentanyl I.V. 100 mcg Versed I.V. 2 mg Fentanyl I.V. 100 mcg Versed I.V. 2 mg Fentanyl I.V. 100 mcg Hemodynamics Rest HGB: 12.1 (g/dl) Heart Rate: 63 (bpm) Snapshots Pre Cath Intra NCS Post Cath Vital Signs Time Heart Resp SPO2 etCO2 NIBP (mmHg) Rhythm Pain Sedation Rate (ipm) (%) (mmHg) Status Level (bpm) 9:57:02 60 23 99 0 150/137(143) NSR 0 (11) 10(A) , No pain 10:13:27 61 19 98 0 158/82(92) NSR 0 (11) 10(A) , No pain 10:17:45 60 15 100 26.5 143/83(122) NSR 0 (11) 10(A) , No pain 10:21:59 57 19 99 25 131/83(105) NSR 0 (11) 10(A) , No pain 10:26:11 62 37 94 0 137/82(108) NSR 0 (11) 10(A) , No pain Medications Time Medication Route Dose Verified Delivered Reason Notes Eff ectiveness by by 10:16:54 0.9% NaCl I.V. 100 Ravi Ravi Per ml/hr Elsa Hunter physician RN RN 10:17:03 Oxygen etCO2 2 Ravi Ravi for low 02 Nasal l/min Elsa Hunter sats cannula RN RN 10:17:14 Heparin Flush added 2 Ravi Ravi used for Bag to bags Lorigan Lorigan procedure (1000units/500ml field RN RN NS) 10:17:24 Lidocaine 2% added 20ml Ravi Ravi for local to vial Lorigan Lorigan anesthetic field RN RN 10:18:57 Versed I.V. 2 mg Ravi Ravi for Lorigan Lorigan sedation RN RN 10:19:05 Fentanyl I.V. 100 Ravi Ravi for mcg Lorigan Lorigan sedation RN RN 10:20:13 Versed I.V. 2 mg Ravi Ravi for Lorigan Lorigan sedation RN RN 10:21:15 Fentanyl I.V. 100 Ravi Ravi for mcg Lorigan Lorigan sedation RN RN 10:22:58 Versed I.V. 2 mg Ravi Ravi for Lorigan Lorigan sedation RN RN 10:24:49 Fentanyl I.V. 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 Start room use. 9:33:55 Time tracking: Call back (After hours or weekends) 9:33:58 Plan of Care:Hemodynamics will remain stable., Cardiac rhythm will remain stable., Comfort level will be maintained., Respiratory function will remain adequate., Patient/ family verbilizes understanding of procedure., Procedure tolerated without complication., Recovers from procedure without complications.. 9:41:07 Lab Result : BUN 14 mg/dl 9:41:07 Lab Result : Hemoglobin 12.1 g/dl 9:41:07 Lab Result : Creatinine 0.7 mg/dl 9:41:07 Lab Result : Hematocrit 36.3 % 9:41:10 Lab results completed and on chart. 9:41:23 H&P Date Dictated: 04/28/2018 Within 30 days and on chart.. 9:41:34 Patient Weight : 132.28 lbs 9:44:22 Patient received from Med II to CCL 1 Alert and oriented. Tansferred to table in Supine position. 9:44:24 Warm blankets applied, and genevieve hugger turned on for patient comfort. 9:44:24 Correct patient and procedure confirmed by team. 9:44:26 Signed procedure consent form obtained from patient. 9:44:27 ECG and BP/O2 sat monitors applied to patient. 9:44:27 Pre-procedure instructions explained to patient. 9:44:28 Pre-op teaching completed and patient verbalized understanding. 9:44:29 Family in patients room. 9:44:30 Patient NPO since Midnight. 9:54:53 Vital chart was started 10:02:44 IV CATHETER 22g opened to sterile field. 10:02:59 IV started by Ravi Hunter RN inright antecubital with a 22 gauge IV catheter with 0.9% NaCl at KVO. 10:04:05 Baseline sample Acquired. 10:04:09 Rhythm: sinus rhythm 10:04:10 Full Disclosure recording started 10:04:20 Patient allergic to Other allergynitro 10:04:21 Is the patient allergic to Iodine/contrast media? No. 10:04:22 Is patient on blood thinner?Yes 10:04:24 ACC The patient was administered the following blood thiners within the last 24 hours: ACCPlavix 10:04:26 Patient diabetic? No. 10:04:51 Previous problem with sedation/anesthesia? No ? 10:04:52 Snore? Yes 10:04:53 Sleep apnea? No 10:04:54 Deviated septum? No 10:04:55 Opens mouth fully? Yes 10:04:56 Sticks out tongue? Yes 10:04:57 Airway obstruction? No ? 10:05:00 Dentures? Yes in tight 10:05:02 Pre procedure: right dorsailis pedis pulse 2+ Normal; easily identifiable; not easily obliterated 10:05:04 Pre procedure: left dorsailis pedis pulse 2+ Normal; easily identifiable; not easily obliterated 10:05:06 Patient pain scale 0/10 ?. 10:05:12 IV left antecubital D/C'd due to infiltration. 10:05:16 Left groin area was prepped with chlora-prep and draped in sterile fashion 10:05:17 Alarms reviewed by R. N. 10:05:17 Sharps counted by scrub and verified by R.N. 10:05:19 Use device set Femoral Dx 10:05:20 ACIST Syringe (28667) opened to sterile field. 10:05:20 Bag Decanter (2002S) opened to sterile field. 10:05:21 Medline Cath Pack ([id number]) opened to sterile field. 10:05:22 ACIST Hand Control (36135) opened to sterile field. 10:05:22 ACIST Manifold (30244) opened to sterile field. 10:05:23 Tegaderm 4 x 4 (1626W) opened to sterile field. 10:05:24 SHEATH 5FR [place] (MIL127) opened to sterile field. 10:05:24 DIAGNOSTIC WIRE .035 260cm J wire (971989) opened to sterile field. 10:05:25 DIAGNOSTIC Multipack 5Fr catheter set ([id number]) opened to sterile field. 10:05:32 Physician arrived 10:05:32 --------ALL STOP TIME OUT------ 10:05:33 Final Timeout: patient, procedure, and site verified with staff and physician. All members of the team are in agreement. 10:05:34 Left groin site verified by team. 10:05:37 Fire Safety Assessment: A--An alcohol-based skin anteseptic being used preoperatively., C--Open oxygen or nitrous oxide is being used., D--An ESU, laser, or fiber-optic light is being used. 10:05:40 Physical assessment completed. ASA score P 2 - A patient with mild systemic disease as per Kentrell Denson MD. 10:05:42 Sedation plan: IV Moderate Sedation Medication:Versed, Fentanyl 10:16:54 0.9% NaCl 100 ml/hr I.V. was administered by Ravi Hunter RN; Per physician; 10:17:03 Oxygen 2 l/min etCO2 Nasal cannula was administered by Ravi Hunter RN; for low 02 sats; 10:17:14 Heparin Flush Bag (1000units/500ml NS) 2 bags added to field was administered by Ravi Hunter RN; used for procedure; 10:17:24 Lidocaine 2% 20ml vial added to field was administered by Ravi Hunter RN; for local anesthetic; 10:18:57 Versed 2 mg I.V. was administered by Ravi Hunter RN; for sedation; 10:19:05 Fentanyl 100 mcg I.V. was administered by Ravi Hunter RN; for sedation; 10:19:21 Zero performed for pressure channel P1 10:20:13 Procedure started. 10:20:13 Versed 2 mg I.V. was administered by Ravi Hunter RN; for sedation; 10:20:16 Local anesthetic to left femerol artery with Lidocaine 2% by Kentrell Denson MD.INITIAL ACCESS ONLY 10:21:15 Fentanyl 100 mcg I.V. was administered by Ravi Hunter RN; for sedation; 10:21:54 A 5 Fr sheath was inserted into the Left Femoral artery 10::58 Versed 2 mg I.V. was administered by Ravi Hunter RN; for sedation; 10:24:21 A MULTIPACK Pigtail 5 Fr catheter was advanced over the wire and used for Procedure. 10:24:25 LV gram done using FERRARA 10::27 Injector settings: Ml/sec: 10, Volume: 20, 10:24:29 LV hemodynamics recorded. 10:24:49 Fentanyl 100 mcg I.V. was administered by Ravi Hunter RN; for sedation; 10:24:51 EF : 60 % 10:25:18 Catheter exchanged over wire. 10:25:28 A MULTIPACK JL 4.0 5Fr catheter was advanced over the wire and used for Procedure. 10:25:50 LCA angiography performed. 10:25:52 Catheter exchanged over wire. 10:25:56 A MULTIPACK 3DRC 5Fr catheter was advanced over the wire and used for Procedure. 10:26:16 RCA angiography performed. 10:26:21 EXOSEAL 5Fr (EX500) opened to sterile field. 10:26:38 Sheath removed intact; hemostasis achieved with Exoseal to the Left Femoral artery. 10:26:40 Procedure ended.(Physican Out) 10::56 Fluoroscopy time 00.70 minutes. 10::59 Flurop Dose total: 145 10::59 Fluoroscopy dose: 145 mGy 10:27:02 Contrast amount:Isovue 300 35ml. 10:27:03 Sharps counted by scrub and verified by R.N. 10:27:04 Insertion/operative site no bleeding no hematoma. 10:27:06 Post-op/insertion site Left Femoral artery dressed using a 4 x 4 and Tegaderm. 10:27:11 Post left femerol artery:stable, soft, clean and dry 10:27:12 Post Procedure Pulses reassessed and unchanged 10:27:14 Post-procedure physical assessment completed. ASA score P 2 - A patient with mild systemic disease as per Kentrell Denson MD. 10:27:17 Post procedure rhythm: sinus rhythm 10:27:19 Estimated blood loss: 5 ml 10:27:20 Post procedure instruction explained to patient.Patient verbalizes understanding. 10:27:21 Patient needs reinforcement of post procedure teaching. 10:27:55 Procedure and supply charges have been captured, reviewed, submitted and are correct. 10:27:57 Procedure Complication : No complications 10:27:59 Vital chart was stopped 10::59 See physician's report for complete and final results. 10:28:02 Report given to PCU. 10:28:04 Patient transfered to PCU with Stretcher. 10:28:05 Procedure ended. 10:28:05 Full Disclosure recording stopped 10:28:10 End room use (Document Last) Device Usage Item Name Manufacture Quantity Catalog Hospital Part Current Minimal Lot# / Number Charge Number Stock Stock Serial# Code ACIST Acist 1 [id number] [id number] 780327 525329 20 Syringe Medical (12156) Systems Inc Bag Microtek 1 513816 31010 484322 5 Decanter Medical Inc. () Medline Medline 1 [id number] 992030 12953 517263 5 Cath Pack ([id number]) ACIST Hand Acist 1 56644 774139 085827 299568 5 Control Medical (81983) Systems Inc ACIST Acist 1 11520 730487 541193 866250 5 Manifold Medical (49393) Systems Inc Tegaderm 4 3M 1 1626W 809169 463008 180169 5 x 4 (1626W) SHEATH 5FR Terumo 1 [id number] 582860 780407 230858 5 [place] (IXR182) DIAGNOSTIC St Jason 1 217651 139680 514403 726072 30 WIRE .035 260cm J wire (679724) DIAGNOSTIC Cardinal 1 [id number] 260959 35997 435212 30 Multipack Health 5Fr catheter set (FT3731) IV CATHETER B. Barrientos 1 9502766-95 304348 167188 387356 5 22g MULTIPACK Cardinal 1 510741 5 Pigtail 5 Health Fr catheter MULTIPACK Cardinal 1 065306 5 JL 4.0 5Fr Health catheter MULTIPACK Cardinal 1 459240 5 3DRC 5Fr Health catheter EXOSEAL 5Fr Cardinal 1 EX500 390353 692696 540249 10 (EX500) Health Signature Audit [place] Stage Time Signature Unsigned Intra-Procedure 04/29/2018 Erick Mulligan 10:32:13 AM RT(R) Signatures Monitor : Erick Mulligan RT Signature : Date : Time : [address] [address]
[~2018-04-27 22:39] MED LIST changes: +ASPIRIN81 MG PO
[2018-04-27 23:09] LABS: BASOPHILS 0.1 % (0-2); EOSINOPHILS 1.5 % (0-7); HEMATOCRIT 34.5 % (36.0-48.0); HEMOGLOBIN 11.7 g/dL (12-16); IMMATURE GRANULOCYTES 0.1 % (0-5); MCH 29.3 pg (26.0-34.0); MCHC 33.9 g/dL (31.0-37.0); MCV 86.5 fL (80.0-100.0); MEAN PLATELET VOLUME 9.8 fL (7.4-10.4); MONOCYTES 6.8 % (2-11); NEUTROPHILS 60.5 % (40-80); PLATELET COUNT 191 10x3/uL (130-400); RBC 3.99 10x6/uL (4.00-5.40); RDW 15.7 % (11.5-14.5); WBC 7.8 10x3/uL (4.8-10.8)
[2018-04-27 23:26] LABS: ALBUMIN 3.9 g/dL (3.4-5.0); ALKALINE PHOSPHATASE 98 U/L (46-116); ALT (SGPT) 23 U/L (10-68); BILIRUBIN - TOTAL 0.15 mg/dL (0.2-1.3); CALC OSMOLALITY 265 mosm/kg (275-300); CALCIUM 8.3 mg/dL (8.5-10.1); CARBON DIOXIDE 26.7 mmol/L (21.0-32.0); CHLORIDE - SERUM 96 mmol/L (98-107); CREATININE - SERUM 0.7 mg/dL (0.6-1.3); GLUCOSE 88 mg/dL (74-106); POTASSIUM - SERUM 3.6 mmol/L (3.5-5.1); PROTEIN - SERUM 7.6 g/dL (6.4-8.2); SODIUM 134 mmol/L (136-145); UREA NITROGEN 9 mg/dL (7-18); eGFR NON AFRICAN AMERICAN > 90 mL/min (90-120)
[2018-04-27 23:41] LABS: LIPASE 61 U/L (73-393); PRO BNP 271 pg/mL (0-125)
[2018-04-27 23:44] LABS: TROPONIN-I 0.147 ng/mL (0.000-0.060)
[2018-04-28] VITALS (7 sets, daily range): BP systolic 105–129; BP diastolic 62–80; Ht 154.9 cm; Wt 60.3 kg
--- NOTE | 2018-04-28 10:01 | NUR ---
ASSESSMENT COMPLETED. ALERT AND ORIENTED. RESP REG AND NON LABORED. LUNGS CLEAR. UP AB TAYLOR. TELEMERTY SHOWS SR 66. BRUISES TO LEFT SIDE OF FACE, UPPER LEFT FACE WITH AN ABRAISIONS, RIGHT FA AND RIGHT HAND. SIDE RAIL UP WITH CALL LIGHT IN REACH
--- NOTE | 2018-04-28 11:08 | NUR ---
RN ROUNDING DONE AND I AGREE WITH MCKENNA SIMENTAL LPN ASSESSMENT. LEFT AC PIV SEEN WITH SALINE LOCK. NPO FOR HEART CATH WITH DR TOBIN.
--- NOTE | 2018-04-28 18:52 | NUR ---
LYING QUIETLY. DENIES ANY NEEDS. SR UP WITH CALL LIGHT IN REACH. WILL MONITOR
--- NOTE | 2018-04-28 20:11 | NUR ---
EVENING ROUNDS COMPLETED. REPORT RECEIVED. PT SITTING UP IN BED WITH EYES OPEN, RR EVEN AND UNLABORED. BED IN LOW POSITION. NO S/S OF DISTRESS. INTRODUCED SELF TO PT. PT DENIES FURTHER NEEDS AT THIS TIME. CALL LIGHT IN REACH. WILL CTM.
[2018-04-29] VITALS: BP 112/57
--- NOTE | 2018-04-29 01:21 | NUR ---
ADMINISTERED ORDERED ANALGESIC FOR COMPLAINTS OF PAIN IN BACK, PT STATES PAIN OF AN 7 ON A SCALE OF 0-10.
--- NOTE | 2018-04-29 03:56 | NUR ---
PT LYING ON RIGHT SIDE IN BED WITH EYES OPEN, RR EVEN AND UNLABORED. PT STATES PAIN MEDICATION WAS EFFECTIVE IN MANAGEMENT OF BACK PAIN. DENIES FURTHER NEEDS AT THIS TIME. CALL LIGHT IN REACH. WILL CTM.
[2018-04-29 04:00] VITALS: BP 119/70
--- NOTE | 2018-04-29 04:42 | NUR ---
LYING IN BED WITH EYES OPEN AT THIS TIME. ALERT AND ORIENTED X4. TELEMETRY IN PLACE WITH HR 69 SINUS. V/S'S 97.8,112/57,68,18,95% SAT. DENIES ANY NEEDS OR PAIN.
--- NOTE | 2018-04-29 04:46 | NUR ---
BRUISING TO LEFT SIDE OF FACE AND NECK WITH LARGE ABRASION. ALSO TO LEFT UPPER CHEST,RIGHT UPPER ARM.RIGHT HAND AND RIGHT FOREARM.
[2018-04-29 06:14] LABS: ALBUMIN 3.4 g/dL (3.4-5.0); ALKALINE PHOSPHATASE 90 U/L (46-116); ALT (SGPT) 25 U/L (10-68); BILIRUBIN - TOTAL 0.16 mg/dL (0.2-1.3); CALC OSMOLALITY 283 mosm/kg (275-300); CALCIUM 8.6 mg/dL (8.5-10.1); CARBON DIOXIDE 22.9 mmol/L (21.0-32.0); CHLORIDE - SERUM 107 mmol/L (98-107); CREATININE - SERUM 0.7 mg/dL (0.6-1.3); GLUCOSE 96 mg/dL (74-106); POTASSIUM - SERUM 3.9 mmol/L (3.5-5.1); PROTEIN - SERUM 7.1 g/dL (6.4-8.2); SODIUM 142 mmol/L (136-145); eGFR NON AFRICAN AMERICAN > 90 mL/min (90-120)
[2018-04-29 06:16] LABS: UREA NITROGEN 14 mg/dL (7-18)
[2018-04-29 06:18] LABS: BASOPHILS 0.2 % (0-2); EOSINOPHILS 1.5 % (0-7); HEMATOCRIT 36.3 % (36.0-48.0); HEMOGLOBIN 12.1 g/dL (12-16); IMMATURE GRANULOCYTES 0.2 % (0-5); LYMPHOCYTES 35.1 % (15-50); MCH 29.2 pg (26.0-34.0); MCHC 33.3 g/dL (31.0-37.0); MCV 87.5 fL (80.0-100.0); MEAN PLATELET VOLUME 10.2 fL (7.4-10.4); MONOCYTES 7.5 % (2-11); NEUTROPHILS 55.5 % (40-80); PLATELET COUNT 248 10x3/uL (130-400); RBC 4.15 10x6/uL (4.00-5.40); RDW 15.9 % (11.5-14.5); WBC 6.2 10x3/uL (4.8-10.8)
[2018-04-29 08:33] VITALS: BP 129/72
--- NOTE | 2018-04-29 10:43 | NUR ---
ALERT AND ORIENTED. TELEMERTY SHOWS SB 59. LEFT AC SL. DENIES ANY PAIN. PREOP GIVEN FOR ACCOUNT COORDINATOR. TO ACCOUNT COORDINATOR. PER BED.
--- NOTE | 2018-04-29 10:55 | NUR ---
BACK FROM MEDICAL RECEPTION. RIGHT GROIN SOFT WITH DRSG DRY AND INTACT. V/S STABLE. TELEMERTY SHOWS SR. WILL MONITOR
--- NOTE | 2018-04-29 11:13 | NUR ---
RN ROUNDING DONE AND I AGREE WITH ASSESSMENT FROM MCKENNA SIMENTAL EXCEPT THERE IS A VERY LARGE BRUISED AREA TO LEFT SIDE OF FACE, ANTERIOR NECK AND LEFT CHEST. ALSO SEEN BRUIING ON RIGHT FA. PATIENT STATES THAT SHE FELL OF PORCH.
[2018-04-29 13:26] VITALS: BP 119/71
--- NOTE | 2018-04-29 13:49 | NUR ---
PT DISCHARGED. IV DCD WITH TIP IN TACT. RIGHT GROIN SOFT WITH NO SWELLING OR BLEEDING PPP. TO PRIVATE CAR PER WHEELCHAIR
--- NOTE | 2018-05-01 11:18 | OP ---
PATIENT NAME: HERMINIA CHOPRA MEDICAL RECORD: [id number] :60 LOCATION:D.M2 D.2122 ADMISSION DATE:04/27/18 SURGEON: RAYMON TOBIN MD DATE OF OPERATION: 04/29/2018 DATE OF SERVICE: 04/29/2018 PROCEDURES: 1. Left heart catheterization. 2. Selective coronary angiography. 3. Left ventriculogram. INDICATION: Chest pain compatible with angina. PROCEDURE IN DETAIL: After informed consent was obtained and after a detailed description of the risks, benefits as well as alternative therapies, the patient elected to proceed with angiogram and heart catheterization. Left femoral area was prepped and draped in normal sterile fashion. Left femoral artery was cannulated via modified Seldinger technique with placement of 5-Yi sheath. All catheters exchanged through this sheath. FINDINGS: Left ventriculogram was performed in the standard 30-degree FERRARA view reveals good cardiac wall motion throughout all segments. Overall ejection fraction estimated at 60%. SELECTIVE CORONARY ANGIOGRAPHY: 1. Left main has no significant angiographic disease. 2. Left anterior descending has previously placed stent that is widely patent with no significant restenosis, no thrombosis, no disease elsewise at the LAD or its branches. 3. Left circumflex has moderate irregularities, but no flow-limiting stenosis. 4. The right coronary has previously placed stents, these are widely patent with no significant restenosis. No disease elsewise at the RCA or its branches. OVERALL IMPRESSION: Wide patency of all the previously placed stents. No significant disease elsewise. Continue medical management of the coronary artery disease and cardiac risk factors. TRANSINT:[id number] Voice Confirmation ID: [id number] DOCUMENT ID: [id number] RAYMON TOBIN MD at 1118 CC: [id number] DICTATION DATE: 04/29/18 1031 PAINTING AND COATING WORKER: 04/29/18 1057 DIS IN 04/29/18 [id number] [place] [address]
--- NOTE | 2018-05-01 11:18 | CN ---
PATIENT NAME:HERMINIA CASTANEDA MEDICAL RECORD: [id number] : 60 LOCATION:D. D.2122 ADMIT DATE: 04/27/18 ACCOUNT: [id number] CONSULTING PHYSICIAN: RAYMON TOBIN MD REFERRING PHYSICIAN: MACO SAENZ MD DATE OF CONSULTATION: 04/28/2018 ADMITTING DIAGNOSES: 1. Unstable angina. 2. Coronary artery disease. 3. Recent percutaneous transluminal coronary angioplasty stent of left anterior descending and right coronary artery. 4. Hyperlipidemia. HISTORY OF PRESENT ILLNESS: Mrs. Castaneda presents with recurrent chest discomfort. She has a history of coronary artery disease, recent PTCA stent of the RCA and LAD within the last month. She was doing well until yesterday, she had escalating chest discomfort. She presented to the Emergency Room. Her troponin is positive at 0.160. PHYSICAL EXAMINATION: GENERAL APPEARANCE: Well-nourished, well-developed, appears stated age. Level of distress, comfortable. PSYCHIATRIC: Mental status, alert, normal affect. Orientation, oriented to time, place and person. EYES: Lids and conjunctiva, noninjected. No discharge, no pallor. ENT: Lips, teeth, gums, normal dentition. Oropharynx, no cyanosis, no pallor. NECK: Carotid arteries, bilateral normal upstroke, no bruits, no thrills. JUGULAR VEINS: No jugular venous pressure or distention. CERVICAL LYMPH NODES: Nontender, nonenlarged. THYROID: Not enlarged. Nontender. No nodules. LUNGS: Respiratory effort, unlabored. CHEST: Normal curvature. No thoracic deformity. No chest wall tenderness. Percussion, resonant. Auscultation, clear. No wheezes, no rales, no rhonchi. CARDIOVASCULAR: Precordial exam, nondisplaced. No heaves or pericardial thrills. Rate and rhythm, regular. Heart sounds, normal S1, normal S2. No S3, no gallop, no rub. Systolic murmur, not heard. Diastolic murmur, not heard. EXTREMITIES: No cyanosis, no edema. Peripheral pulses, full and equal in all extremities, except as noted. No bruits appreciated. ABDOMEN: Soft, nondistended. Normal aorta. No bruit. Nontender. No masses. Liver, nontender, no hepatomegaly. Spleen, nontender, no splenomegaly. MUSCULOSKELETAL: No joint tenderness. No joint swelling. No erythema. NEUROLOGICAL: Normal gait, normal strength, normal tone. SKIN: Warm and dry. ASSESSMENT AND PLAN: EKG is with no acute ST-T abnormalities or changes. She is bradycardic in the 60s, which is why no beta blockade was undertaken in the past and her systolic blood pressure is in the 110 range. I am not sure the etiology of her chest pain. We will proceed with coronary angiography in the a.m. Further care depends upon findings of the angiography. TRANSINT:[id number] Voice Confirmation ID: [id number] DOCUMENT ID: [id number] CONSULT REPORT [id number] HERMINIA CASTANEDA, RAYMON CHAPMAN at 1118 CC: [id number] DICTATION DATE: 04/28/18 1333 TELEVISION CAMERAMAN: 04/28/18 1408 DIS IN 04/29/18 [facility] [address] [place] [address]
--- NOTE | 2018-05-02 09:23 | MORECARE ---
CASE MANAGEMENT DISCHARGE SUMMARY PATIENT: HERMINIA CHOPRA UNIT: [id number] ADM DATE: 04/27/18 AGE: 57 : 60 SEX: F ROOM/BED: D.5237 AUTHOR: MARY BILL PHYSICIAN: REFERRING PHYSICIAN: MACO SAENZ MD DATE OF SERVICE: 05/02/18 Discharge Plan Patient Name: HERMINIA CHOPRA Facility[facility]:[place] : 1960 Planned Disposition: Home Anticipated Discharge Date: 04/29/18 Discharge Date: 04/29/2018 Expected LOS: 2 Initial Reviewer: [email or web address] Initial Review Date: 05/02/2018 Generated: 05/02/18 10:23 am Patient Name: HERMINIA CHOPRA Page [id number] at 0923 All edits/amendments must be made on the electronic document DICTATION DATE: 05/02/18921 CONTACT CENTER CONSULTANT: LINDA 05/02/18921 RPT#: [id number] DC DATE:04/29/18 STATUS: DIS IN [facility] [address] [place] [address] END OF REPORT
== END 2018-04-29 13:54 | disposition home or self-care (01) ==
LOC: D.ER 22:39 → D.M2 23:39 → D.EDHOLD 23:39 → OBSVTIME 23:39 → D.EDHOLD 23:39 → D.M2 23:53
PROVIDERS: Family Medicine; Family Medicine Adult Medicine; ADMIT Family Medicine
DX: I25.110 Atherosclerotic heart disease of native coronary artery with unstable angina pectoris (principal); E78.5 Hyperlipidemia, unspecified; I10 Essential (primary) hypertension; M54.5 Low back pain; G89.29 Other chronic pain; F41.9 Anxiety disorder, unspecified; F32.9 Major depressive disorder, single episode, unspecified

== ENCOUNTER 2018-08-04 20:18 | Emergency (ER) | payer OTHER ==
[2018-08-04 20:25] VITALS: BMI 25.0
[2018-08-04] MEDS ORDERED: COZAAR100 MG PO (20:27)
[2018-08-04] MEDS ORDERED: MOBIC7.5 MG PO (20:27)
[2018-08-04 20:46] LABS: BASOPHILS 0.2 % (0-2); HEMOGLOBIN 12.7 g/dL (12-16); IMMATURE GRANULOCYTES 0.2 % (0-5); LYMPHOCYTES 22.3 % (15-50); MCH 29.3 pg (26.0-34.0); MCHC 34.3 g/dL (31.0-37.0); MCV 85.5 fL (80.0-100.0); MEAN PLATELET VOLUME 9.4 fL (7.4-10.4); MONOCYTES 6.7 % (2-11); NEUTROPHILS 69.6 % (40-80); PLATELET COUNT 218 10x3/uL (130-400); RBC 4.33 10x6/uL (4.00-5.40); RDW 14.7 % (11.5-14.5); WBC 16.4 10x3/uL (4.8-10.8)
[2018-08-04 20:58] LABS: APTT 29.6 SECONDS (22.8-39.4); INR 1.01 (0.85-1.17); PROTIME 12.8 SECONDS (11.6-15.0)
[2018-08-04 20:59] LABS: ALBUMIN 4.1 g/dL (3.4-5.0); ALKALINE PHOSPHATASE 76 U/L (46-116); ALT (SGPT) 20 U/L (10-68); BILIRUBIN - TOTAL 0.27 mg/dL (0.2-1.3); CALC OSMOLALITY 279 mosm/kg (275-300); CARBON DIOXIDE 25.3 mmol/L (21.0-32.0); CHLORIDE - SERUM 103 mmol/L (98-107); CREATININE - SERUM 1.5 mg/dL (0.6-1.3); GLUCOSE 123 mg/dL (74-106); POTASSIUM - SERUM 3.5 mmol/L (3.5-5.1); PROTEIN - SERUM 7.5 g/dL (6.4-8.2); SODIUM 138 mmol/L (136-145); UREA NITROGEN 20 mg/dL (7-18); eGFR NON AFRICAN AMERICAN 38 mL/min (90-120)
[2018-08-04 21:11] LABS: CKMB 0.8 U/L (0.0-3.6); CREATINE KINASE 68 UL (21-215); MAGNESIUM - SERUM 1.8 mg/dL (1.8-2.4)
[2018-08-04 21:13] LABS: TROPONIN-I < 0.017 ng/mL (0.000-0.060)
[2018-08-04] MEDS ORDERED: PEPCID40 MG PO (22:13)
[2018-08-04 23:40] VITALS: BP 101/66
== END 2018-08-04 23:06 | disposition home or self-care (01) ==
LOC: D.ER 20:18
PROVIDERS: Family Medicine
DX: R07.9 Chest pain, unspecified (principal); I25.10 Atherosclerotic heart disease of native coronary artery without angina pectoris; K21.9 Gastro-esophageal reflux disease without esophagitis; D72.829 Elevated white blood cell count, unspecified

== ENCOUNTER 2018-08-30 02:45 | Emergency (ER) | payer OTHER ==
[~2018-08-30] VITALS: Ht 154.9 cm; Wt 60.9 kg
[~2018-08-30 02:45] MED LIST changes: +PEPCID40 MG PO
[2018-08-30 02:52] VITALS: Ht 154.9 cm; Wt 60.9 kg
[2018-08-30 03:25] LABS: BASOPHILS 0.2 % (0-2); HEMATOCRIT 39.1 % (36.0-48.0); HEMOGLOBIN 13.5 g/dL (12-16); IMMATURE GRANULOCYTES 0.3 % (0-5); LYMPHOCYTES 21.5 % (15-50); MCH 30.1 pg (26.0-34.0); MCHC 34.5 g/dL (31.0-37.0); MCV 87.1 fL (80.0-100.0); MEAN PLATELET VOLUME 9.2 fL (7.4-10.4); MONOCYTES 5.5 % (2-11); NEUTROPHILS 71.5 % (40-80); PLATELET COUNT 265 10x3/uL (130-400); RBC 4.49 10x6/uL (4.00-5.40); RDW 16.3 % (11.5-14.5)
[2018-08-30 03:33] LABS: ALBUMIN 3.4 g/dL (3.4-5.0); ALKALINE PHOSPHATASE 97 U/L (46-116); ALT (SGPT) 29 U/L (10-68); BILIRUBIN - TOTAL 0.19 mg/dL (0.2-1.3); CALC OSMOLALITY 282 mosm/kg (275-300); CALCIUM 8.7 mg/dL (8.5-10.1); CARBON DIOXIDE 27.9 mmol/L (21.0-32.0); CHLORIDE - SERUM 102 mmol/L (98-107); GLUCOSE 165 mg/dL (74-106); POTASSIUM - SERUM 3.5 mmol/L (3.5-5.1); PROTEIN - SERUM 7.3 g/dL (6.4-8.2); SODIUM 139 mmol/L (136-145); UREA NITROGEN 14 mg/dL (7-18); eGFR NON AFRICAN AMERICAN 61 mL/min (90-120)
[2018-08-30 03:40] LABS: LIPASE 114 U/L (73-393); MAGNESIUM - SERUM 1.9 mg/dL (1.8-2.4); PRO BNP 156 pg/mL (0-125); TROPONIN-I < 0.017 ng/mL (0.000-0.060)
[2018-08-30 03:43] LABS: APPEARANCE CLEAR (CLEAR); BILIRUBIN NEGATIVE (NEGATIVE); COLOR YELLOW (YELLOW); GLUCOSE NEGATIVE (NEGATIVE); KETONE NEGATIVE (NEGATIVE); NITRITE NEGATIVE (NEGATIVE); PROTEIN NEGATIVE (NEGATIVE); UROBILINOGEN NORMAL (NORMAL)
[2018-08-30 03:44] LABS: BACTERIA FEW /hpf (NONE SEEN); EPITHELIAL CELLS 0-5 /hpf (0-5); RED CELLS - URINE 0-5 /hpf (0-5); WHITE CELLS - URINE 0-5 /hpf (0-5)
[2018-08-30 03:50] LABS: UDS - AMPHET NEGATIVE QUAL (NEGATIVE); UDS - BARB NEGATIVE QUAL (NEGATIVE); UDS - BENZO NEGATIVE QUAL (NEGATIVE); UDS - COCAINE NEGATIVE QUAL (NEGATIVE); UDS - OPIATE NEGATIVE QUAL (NEGATIVE); UDS - PCP NEGATIVE QUAL (NEGATIVE); UDS - THC NEGATIVE QUAL (NEGATIVE)
[2018-08-30 04:14] VITALS: BP 148/84
== END 2018-08-30 04:12 | disposition home or self-care (01) ==
LOC: D.ER 02:45
PROVIDERS: Family Medicine
DX: R51 Headache (principal); I25.10 Atherosclerotic heart disease of native coronary artery without angina pectoris

== ENCOUNTER → 2018-10-15 08:00 | Outpatient (CLI) | payer OTHER ==
[2018-08-30 02:52] VITALS: BMI 25.3
== END | disposition home or self-care (01) ==
LOC: D.MAMMO 09-26 10:30 → D.US 09-26 11:30 → D.MAMMO 08:00
PROVIDERS: ATTEND Family Medicine
DX: R92.8 Other abnormal and inconclusive findings on diagnostic imaging of breast (principal)

== ENCOUNTER 2018-11-08 14:41 | Emergency (ER) | payer OTHER ==
[~2018-11-08] VITALS: Ht 154.9 cm; Wt 55.5 kg
[2018-11-08 14:49] VITALS: Ht 154.9 cm; Wt 55.5 kg
[2018-11-08 15:14] LABS: BASOPHILS 0.4 % (0-2); EOSINOPHILS 2.1 % (0-7); IMMATURE GRANULOCYTES 0.3 % (0-5); LYMPHOCYTES 25.2 % (15-50); MCV 88.5 fL (80.0-100.0); MEAN PLATELET VOLUME 11.2 fL (7.4-10.4); PLATELET COUNT 366 10x3/uL (130-400); RBC 4.52 10x6/uL (4.00-5.40); RDW 16.1 % (11.5-14.5); WBC 9.6 10x3/uL (4.8-10.8)
[2018-11-08 15:22] LABS: APTT 39.4 SECONDS (22.8-39.4); INR 0.93 (0.85-1.17)
[2018-11-08 16:12] LABS: ALBUMIN 3.5 g/dL (3.4-5.0); ALKALINE PHOSPHATASE 83 U/L (46-116); ALT (SGPT) 24 U/L (10-68); CALC OSMOLALITY 286 mosm/kg (275-300); CALCIUM 9.3 mg/dL (8.5-10.1); CARBON DIOXIDE 30.8 mmol/L (21.0-32.0); CHLORIDE - SERUM 105 mmol/L (98-107); CREATININE - SERUM 1.1 mg/dL (0.6-1.3); GLUCOSE 124 mg/dL (74-106); POTASSIUM - SERUM 4.8 mmol/L (3.5-5.1); PROTEIN - SERUM 7.3 g/dL (6.4-8.2); SODIUM 142 mmol/L (136-145); UREA NITROGEN 21 mg/dL (7-18); eGFR NON AFRICAN AMERICAN 54 mL/min (90-120)
[2018-11-08 16:22] LABS: CREATINE KINASE 56 UL (21-215); MAGNESIUM - SERUM 1.9 mg/dL (1.8-2.4); TROPONIN-I < 0.017 ng/mL (0.000-0.060)
[2018-11-08 17:28] VITALS: BP 140/38
== END 2018-11-08 17:58 | disposition home or self-care (01) ==
LOC: D.ER 14:41
PROVIDERS: Family Medicine
DX: R07.9 Chest pain, unspecified (principal); Z86.79 Personal history of other diseases of the circulatory system

== ENCOUNTER → 2018-11-16 08:43 | Outpatient (CLI) | payer OTHER ==
[2018-11-08 14:49] VITALS: BMI 23.1
--- NOTE | 2018-11-20 10:10 | ST ---
PATIENT:HERMINIA CHOPRA MEDICAL RECORD: [id number] SEX: F LOCATION:[facility] ORDER #: ADMISSION DATE: 11/16/18 AGE OF PATIENT: 58 REFERRING PHYSICIAN: INTERPRETING PHYSICIAN: RAYMON TOBIN MD DATE OF SERVICE: 11/16/2018 INDICATION: Angina, coronary artery disease, hypertension, hyperlipidemia. The patient was exercised on standard Lexiscan protocol with 28 mCi of sestamibi injected at peak stress and 9 mCi was used previously for rest images. FINDINGS: Gated SPECT reveals preserved ejection fraction at 51% with decreased thickening and brightening throughout the inferior segments. SPECT imaging Cardiolite was used as myocardial perfusion agent. There is a fixed perfusion defect inferoapically. No evidence of reversibility in fact the defect does improve with stress. The remaining segments with homogeneous uptake at rest and stress. OVERALL IMPRESSION: This is an abnormal nuclear stress test only in that it shows a fixed perfusion defect inferiorly and apically possibly compatible with previous inferoapical myocardial infarction. No evidence of reversible ischemia. Ejection fraction preserved at 61%. Continue medical management of the coronary artery disease and cardiac risk factors. TRANSINT:[id number] Voice Confirmation ID: [id number] DOCUMENT ID: [id number] RAYMON TOBIN MD at 1010 CC: DEMOND CORTES MD [id number] DICTATION DATE: 11/19/18 1036 COMMUNITY SERVICE WORKER: 11/19/18 2323 DEP CLI 11/16/18 [address] [id number] [place] [address]
== END | disposition home or self-care (01) ==
LOC: D.HCCARDIO 08:43
PROVIDERS: ATTEND Internal Medicine Interventional Cardiology
DX: I20.9 Angina pectoris, unspecified (principal)

== ENCOUNTER 2018-12-04 20:57 | Emergency (ER) | payer OTHER ==
[~2018-12-04] VITALS: Ht 154.9 cm; Wt 55.5 kg
[2018-12-04 21:20] VITALS: Ht 154.9 cm; Wt 55.5 kg
[2018-12-04 23:01] VITALS: BP 90/51
== END 2018-12-04 22:52 | disposition home or self-care (01) ==
LOC: D.ER 20:57
DX: M54.5 Low back pain (principal)

== ENCOUNTER 2018-12-06 22:33 | Emergency (ER) | payer OTHER ==
[~2018-12-06] VITALS: Ht 154.9 cm; Wt 55.5 kg
[2018-12-06 22:57] VITALS: Ht 154.9 cm; Wt 55.5 kg
[2018-12-07 03:08] VITALS: BP 126/71
== END 2018-12-07 03:08 | disposition home or self-care (01) ==
LOC: D.ER 22:33
DX: M54.5 Low back pain (principal); M54.30 Sciatica, unspecified side

== ENCOUNTER 2018-12-22 05:32 | Emergency (ER) | payer OTHER ==
[~2018-12-22] VITALS: Ht 154.9 cm; Wt 55.5 kg
[2018-12-22 05:37] VITALS: Ht 154.9 cm; Wt 55.5 kg
[2018-12-22] MEDS ORDERED: BUPROPION HCL100 MG PO (05:42)
[2018-12-22] MEDS ORDERED: HYDROCODONE-IB1 EAC3 PO (06:03)
[2018-12-22 06:10] VITALS: BP 122/71
== END 2018-12-22 06:10 | disposition home or self-care (01) ==
LOC: D.ER 05:32
DX: M54.5 Low back pain (principal); G89.29 Other chronic pain; K21.9 Gastro-esophageal reflux disease without esophagitis

== ENCOUNTER → 2019-01-04 08:35 | Outpatient (CLI) | payer OTHER ==
[2018-12-22 05:37] VITALS: BMI 23.1
[~2019-01-04 08:35] MED LIST changes: +ARTHROTEC EC 71 EACH PO; +BUPROPION HCL100 MG PO; +HYDROCODONE-IB1 EAC3 PO
--- NOTE | 2019-01-09 13:38 | EC ---
PATIENT:HERMINIA CHOPRA DATE OF SERVICE: 01/04/19 SEX: F MEDICAL RECORD: [id number] DATE OF : 60 [facility] AGE OF PATIENT: 58 ADMISSION DATE: 01/04/19 REFERRING PHYSICIAN: INTERPRETING PHYSICIAN: MARLENA SPARKS MD ECHOCARDIOGRAM REPORT ECHO CHARGES 4 ECHO COMPLETE Date: 01/04/19 CLINICAL DIAGNOSIS: ATYPICAL CP H/O CAD/HTN ECHOCARDIOGRAPHIC MEASUREMENTS (adult normal given) AC root (d.<3.7cm) 2.9 cm LV Septum d (<1.2 cm> 1.2 cm Valve Excursion 1.9 cm LV Septum (systole) 1.6 cm Left Atria (s.<4.0cm> 3.7 cm LVPW d(<1.2cm) 1.0 cm RV (d.<2.3cm) 2.4 cm LVPW (sytole) 1.9 cm LV diastole(<5.6CM) 4.9 cm MV E-F(>70mm/sec) cm LV systole 2.8 cm LVOT Diameter 1.9 cm MV exc.(>10mm) cm Est.ejection fraction (50-75%) % DOPPLER: LVIT cm/sec A 61.0 cm/sec E 76.0 cm/sec LA cm/sec RVSP 22.2 mmHg LVOT 87.0 cm/sec AOP1/2T m/s Asc. Ao 128 cm/sec RVOT 61.0 cm/sec RA cm/sec PA 74.0 cm/sec AV Gradient Peak 6.5 mmHg AV Mean 3.5 mmHg AV Area 1.9 cm MV Gradient Peak 3.1 mmHg MV Mean 1.2 mmHg MV Area cm COMMENTS: OP - HC Meat Washer: 1 SHELBIE [place] Pressure Washer: 3 Dr. Klein TAPE# PACS Pericardial Effusion N DATE OF SERVICE: Adequate 2D, color flow, spectral Doppler, and M-mode. No LVH. LV internal dimension is normal. Wall motion is normal. EF is greater than or equal to 55%. Aortic valve is tricuspid. No evidence of stenosis by Doppler interrogation. Left atrium is normal at 3.7 cm. Mitral valve shows no prolapse. Trace MR. Right-sided chambers grossly normal. Trace TR. TRANSINT:[id number] Voice Confirmation ID: [id number] DOCUMENT ID: [id number] ECHOCARDIOGRAM REPORT [id number] HERMINIA CHOPRA GREGORY A MD at 1338 CC: [id number] DICTATION DATE: 01/07/19 1249 SENIOR DESIGN ENGINEER: 01/07/19 1314 DEP CLI 01/04/19 [place] [id number] [place] [id number]
== END ==
LOC: D.HCCECHO 08:35
PROVIDERS: ATTEND Internal Medicine Interventional Cardiology
DX: R07.9 Chest pain, unspecified (principal)

== ENCOUNTER → 2019-01-22 08:32 | Outpatient (CLI) | payer OTHER ==
[2018-12-22 05:37] VITALS: BMI 23.1
== END | disposition home or self-care (01) ==
LOC: D.US 08:32
PROVIDERS: ATTEND Internal Medicine Interventional Cardiology
DX: R09.89 Other specified symptoms and signs involving the circulatory and respiratory systems (principal)

== ENCOUNTER 2019-02-02 23:00 | Emergency (ER) | payer OTHER ==
[~2019-02-02] VITALS: Ht 154.9 cm; Wt 55.8 kg
[~2019-02-02 23:00] MED LIST changes: -ARTHROTEC EC 71 EACH PO
[2019-02-02 23:05] VITALS: Ht 154.9 cm; Wt 55.8 kg
[2019-02-02] MEDS ORDERED: ARTHROTEC EC 71 EACH PO (23:35)
[2019-02-02 23:56] VITALS: BP 121/80
== END 2019-02-02 23:56 | disposition home or self-care (01) ==
LOC: D.ER 23:00
DX: S46.912A Strain of unspecified muscle, fascia and tendon at shoulder and upper arm level, left arm, initial encounter (principal)

== ENCOUNTER 2019-07-15 05:16 | Emergency (ER) | payer OTHER ==
[~2019-07-15] VITALS: Ht 154.9 cm; Wt 55.0 kg
[~2019-07-15 05:16] MED LIST changes: +ARTHROTEC EC 71 EACH PO
[2019-07-15 05:19] VITALS: Ht 154.9 cm; Wt 55.0 kg
[2019-07-15] MEDS ORDERED: HYDROCODON-ACE1 EAC2 PO (05:38)
[2019-07-15] MEDS ORDERED: METHOCARBAMOL500 MG PO ×2 (05:38→05:41)
[2019-07-15 06:25] VITALS: BP 130/80
== END 2019-07-15 06:25 | disposition home or self-care (01) ==
LOC: D.ER 05:16
DX: M51.36 Other intervertebral disc degeneration, lumbar region (principal); M54.31 Sciatica, right side; K21.9 Gastro-esophageal reflux disease without esophagitis

== ENCOUNTER 2019-07-28 03:15 | Emergency (ER) | payer OTHER ==
[~2019-07-28] VITALS: Ht 154.9 cm; Wt 55.0 kg
[~2019-07-28 03:15] MED LIST changes: +HYDROCODON-ACE1 EAC2 PO; +METHOCARBAMOL500 MG PO
[2019-07-28 03:20] VITALS: Ht 154.9 cm; Wt 55.0 kg
[2019-07-28] MEDS ORDERED: HYDROCODON-ACE1 EAC2 PO (03:34)
[2019-07-28 04:18] VITALS: BP 123/60
== END 2019-07-28 04:18 | disposition home or self-care (01) ==
LOC: D.ER 03:15
DX: M54.32 Sciatica, left side (principal); K21.9 Gastro-esophageal reflux disease without esophagitis; M51.36 Other intervertebral disc degeneration, lumbar region

== ENCOUNTER 2019-08-16 02:15 | Emergency (ER) | payer OTHER ==
[~2019-08-16] VITALS: Ht 154.9 cm; Wt 55.0 kg
[2019-08-16 02:26] VITALS: Ht 154.9 cm; Wt 55.0 kg
[2019-08-16] MEDS ORDERED: STERAPRED DS 1010 MG PO (03:04)
[2019-08-16 03:59] VITALS: BP 107/72
== END 2019-08-16 04:00 | disposition home or self-care (01) ==
LOC: D.ER 02:15
DX: M54.30 Sciatica, unspecified side (principal); G89.29 Other chronic pain; M54.9 Dorsalgia, unspecified

== ENCOUNTER 2019-09-06 21:37 | Emergency (ER) | payer OTHER ==
[~2019-09-06] VITALS: Ht 154.9 cm; Wt 54.5 kg
[~2019-09-06 21:37] MED LIST changes: +STERAPRED DS 1010 MG PO
[2019-09-06 21:47] VITALS: Ht 154.9 cm; Wt 54.5 kg
[2019-09-06] MEDS ORDERED: HYDROCODON-ACE1 EA10 PO (22:30)
[2019-09-06 22:38] VITALS: BP 110/81
== END 2019-09-06 22:39 | disposition home or self-care (01) ==
LOC: D.ER 21:37
DX: M54.5 Low back pain (principal); G89.29 Other chronic pain; M54.10 Radiculopathy, site unspecified

== ENCOUNTER 2019-09-12 22:38 | Emergency (ER) | payer OTHER ==
[~2019-09-12] VITALS: Ht 154.9 cm; Wt 59.0 kg
[~2019-09-12 22:38] MED LIST changes: +HYDROCODON-ACE1 EA10 PO
[2019-09-12 22:48] VITALS: Ht 154.9 cm; Wt 59.0 kg
[2019-09-12 23:32] VITALS: BP 110/70
== END 2019-09-12 23:32 | disposition home or self-care (01) ==
LOC: D.ER 22:38
DX: M54.5 Low back pain (principal); G89.29 Other chronic pain

== ENCOUNTER 2019-09-20 20:16 | Emergency (ER) | payer SELFPAY ==
[~2019-09-20] VITALS: Ht 154.9 cm; Wt 45.5 kg
[2019-09-20 20:52] VITALS: BP 130/82; Ht 154.9 cm; Wt 45.5 kg
[2019-09-21] MEDS ORDERED: HYDROCODON-ACE1 EA10 PO (05:10)
== END 2019-09-20 21:20 | disposition home or self-care (01) ==
LOC: D.ER 20:16
DX: M54.5 Low back pain (principal); G89.29 Other chronic pain; Z20.828 Contact with and (suspected) exposure to other viral communicable diseases

== ENCOUNTER 2019-09-21 02:47 | Emergency (ER) | payer SELFPAY ==
[~2019-09-21] VITALS: Ht 154.9 cm; Wt 54.6 kg
[2019-09-21 02:49] VITALS: Ht 154.9 cm; Wt 54.6 kg
[2019-09-21 03:26] LABS: BASOPHILS 0.1 % (0-2); EOSINOPHILS 0.5 % (0-7); HEMOGLOBIN 12.5 g/dL (12-16); IMMATURE GRANULOCYTES 0.3 % (0-5); LYMPHOCYTES 14.3 % (15-50); MCH 30.3 pg (26.0-34.0); MCHC 33.8 g/dL (31.0-37.0); MCV 89.6 fL (80.0-100.0); MEAN PLATELET VOLUME 8.9 fL (7.4-10.4); MONOCYTES 7.5 % (2-11); NEUTROPHILS 77.3 % (40-80); RBC 4.13 10x6/uL (4.00-5.40); RDW 16.8 % (11.5-14.5); WBC 15.1 10x3/uL (4.8-10.8)
[2019-09-21 03:33] LABS: PLATELET COUNT 247 10x3/uL (130-400)
[2019-09-21 03:37] LABS: CALC OSMOLALITY 272 mosm/kg (275-300); CALCIUM 8.6 mg/dL (8.5-10.1); CARBON DIOXIDE 29.8 mmol/L (21.0-32.0); CHLORIDE - SERUM 101 mmol/L (98-107); CREATININE - SERUM 1.1 mg/dL (0.6-1.3); GLUCOSE 113 mg/dL (74-106); SODIUM 134 mmol/L (136-145); UREA NITROGEN 24 mg/dL (7-18); eGFR NON AFRICAN AMERICAN 54 mL/min (90-120)
[2019-09-21 03:49] LABS: ALBUMIN 3.2 g/dL (3.4-5.0); ALKALINE PHOSPHATASE 66 U/L (30-120); ALT (SGPT) 22 U/L (10-68); C-REACTIVE PROTEIN 0.2 mg/dL (0.0-0.9); LIPASE 104 U/L (73-393); PRO BNP 108 pg/mL (0-125); PROTEIN - SERUM 6.3 g/dL (6.4-8.2); TROPONIN-I < 0.017 ng/mL (0.000-0.060)
[2019-09-21] MEDS ORDERED: HYDROCODON-ACE1 EA10 PO (05:10)
[2019-09-21 05:21] VITALS: BP 117/68
== END 2019-09-21 05:22 | disposition home or self-care (01) ==
LOC: D.ER 02:47
PROVIDERS: Family Medicine
DX: Z53.21 Procedure and treatment not carried out due to patient leaving prior to being seen by health care provider (principal)

== ENCOUNTER 2019-11-07 15:12 | Emergency (ER) | payer OTHER ==
[~2019-11-07] VITALS: Ht 154.9 cm; Wt 53.6 kg
[2019-11-07 15:27] VITALS: BP 120/68; Ht 154.9 cm; Wt 53.6 kg
[2019-11-08] MEDS ORDERED: TALWIN NX1 TAB PO (16:09)
== END 2019-11-07 16:56 | disposition home or self-care (01) ==
LOC: D.ER 15:12
DX: M54.5 Low back pain (principal); G89.29 Other chronic pain

== ENCOUNTER 2019-11-08 15:17 | Emergency (ER) | payer OTHER ==
[~2019-11-08] VITALS: Ht 154.9 cm; Wt 53.6 kg
[2019-11-08 15:38] VITALS: BP 103/69; Ht 154.9 cm; Wt 53.6 kg
[2019-11-08] MEDS ORDERED: TALWIN NX1 TAB PO (16:09)
== END 2019-11-08 16:40 | disposition home or self-care (01) ==
LOC: D.ER 15:17
DX: M54.5 Low back pain (principal); Z95.5 Presence of coronary angioplasty implant and graft

== ENCOUNTER 2019-11-12 00:24 | Observation (INO) | payer OTHER ==
[~2019-11-12] VITALS: Ht 152.4 cm; Wt 54.9 kg
--- NOTE | ~2019-11-12 | HEMODYNAMI ---
PATIENT:HERMINIA CHOPRA MEDICAL RECORD: [id number] : 60 [place]ATION[place] [place] [address] [facility]# [id number] ADMISSION DATE: 11/12/19 Generatedon:11/12/201911:15 Patient name: HERMINIA CHOPRA Patient #: [id number] SSN: [id number] : 1960 Date of study: 11/12/2019 Page: Of Hemodynamic Procedure Report Patient Data Patient Demographics Procedure consent was obtained First Name: HERMINIA Gender: Female Last Name: NAV : 1960 Middle Initial: A Age: 59 year(s) Patient #: [id number] Race: SSN: [id number] Additional ID: [id number] Contact details [address]: [address] [place] [address] State: [place] City: [place] Zip code: [address] Past Medical History Allergies Allergen Reaction Date Comments Reported Other 04/25/2018 Nitro allergy Other 04/29/2018 nitro allergy Other 11/12/2019 NITROGLYCERIN/OXYCODONE,ERYTHROMYCIN allergy Admission Admission Data Admission Date: 11/12/2019 Admission Time: 2:51 Admit Source: Emergency Insurance Payor: Private department health insurance Room #: [address] [facility] #: [id number] Height (in.): 59.84 BSA: 1.49 (m2) Height (cm.): 152 BMI: 23.37 (kg/m2) Weight (lbs.): 119.05 Weight (kg.): 54 Lab Results Lab Result Date: 11/12/2019 Lab Result Time: 1:45 Biochemistry Name Units Result Min Max BUN mg/dl 11 --(-*--)-- 7 18 Creatinine mg/dl 1 --(--*-)-- 0.6 1.3 eGFR ml/min 60 *-(----)-- 90 120 NONAFRICAN CBC Name Units Result Min Max Hematocrit % 38.2 *-(----)-- 42 54 Hemoglobin g/dl 13 -*(----)-- 13.5 17.5 Procedure Procedure Types Cath Procedure Diagnostic Procedure [facility] w/Coronaries Sedation Charges Moderate Sedation up to 15 minutes Peripheral Cath Diagnostic Procedure 4-Vessel Bilateral Carotid Arteriogram Procedure Description Procedure Date Procedure Date: 11/12/2019 Procedure Start Time: 11:02 Procedure End Time: 11:13 Procedure Staff Name Function Eyal Hawk MD Performing Physician Yanira Morales RT Monitor Erick Mulligan RT Scrub Swati Jansen RN Nurse Lorrie Siddiqi RT Piper Installer Procedure Data Cath Procedure Fluoroscopy Diagnostic fluoroscopy Total fluoroscopy Time: 2 time: 2 min min Diagnostic fluoroscopy Total fluoroscopy dose: 280 dose: 280 mGy mGy Contrast Material Contrast Material Type Amount (ml) Isovue 300 65 Entry Location Entry Primary Successful Side Size Upsize Upsize Entry Closure Succes sful Closure Location (Fr) 1 (Fr) 2 (Fr) Remarks Device Remarks Femoral Right 6 Fr Exoseal artery Short Estimated blood loss: 5 ml Diagnostic catheters Device Type Used For End Catheter Placement MULTIPACK JL 4.0 5Fr Left Coronary catheter Angiography MULTIPACK 3DRC 5Fr Right Coronary catheter Angiography MULTIPACK Pigtail 5 Fr LV Angiography catheter Procedure Complications No complications Procedure Medications Medication Administration Route Dosage Oxygen etCO2 Nasal cannula 2 l/min Heparin Flush Bag added to field 2 bags (1000units/500ml NS) Lidocaine 2% added to field 20 0.9% NaCl I.V. 100 ml/hr Fentanyl I.V. 50 mcg Versed I.V. 1 mg Fentanyl I.V. 50 mcg Versed I.V. 1 mg Hemodynamics Rest BSA: 1.49 (m2) HGB: 13 (g/dl) O2 Consumption: Estimated: 138.52 (ml/min) O2 Cons umption indexed: Estimated:92.97 (ml/min/m) Heart Rate: 64 (bpm) Pressure Samples Time Site Value (mmHg) Purpose Heart Use Rate(bpm) 11:08 LV 100/10,10 Snapshot 81 11:09 AO 101/62(76) Pullback 86 11:09 LV 104/10,18 Pullback 86 Gradients Valve Time Site 1 Site 2 Mean SEP/DFP Peak To Heart Use (mmHg) (sec/min) Peak Rate (mmHg) (bpm) Aortic 11:09 LV AO 6 23 3 86 104/10,18 101/62(76) Calculations Valve P-P Mean Valve Index Valve Source Name Gradient Area Flow (cm2) Aortic 3 6 3 6 Snapshots Pre Cath Intra NCS Post Cath Vital Signs Time Heart Resp SPO2 etCO2 NIBP (mmHg) Rhythm Pain Sedation Rate (ipm) (%) (mmHg) Status Level (bpm) 10:30:50 66 14 98 35.9 150/94(119) NSR 0 (11) 10(A) , No pain 10:35:04 67 12 98 39.7 145/90(105) NSR 0 (11) 10(A) , No pain 10:39:16 69 12 98 38.9 151/87(122) NSR 0 (11) 10(A) , No pain 10:43:34 64 20 97 41.9 128/79(98) NSR 0 (11) 10(A) , No pain 10:47:44 68 11 96 30.7 128/78(97) NSR 0 (11) 10(A) , No pain 10:51:52 70 12 95 23.9 130/81(105) NSR 0 (11) 10(A) , No pain 10:55:59 66 13 97 27.7 142/84(119) NSR 0 (11) 10(A) , No pain 11:00:15 76 10 80 26.2 128/77(109) NSR 0 (11) 10(A) , No pain 11:04:25 75 13 94 44.8 124/78(97) NSR 0 (11) 9(A) , No pain 11:08:33 78 14 89 38.9 125/81(112) NSR 0 (11) 9(A) , No pain 11:12:37 81 14 92 52.3 98/59(94) NSR 0 (11) 9(A) , No pain Medications Time Medication Route Dose Verified Delivered Reason Notes Eff ectiveness by by 10:30:59 Oxygen etCO2 2 Swati Swati for low 02 Nasal l/min Justyna Jansen sats cannula RN RN 10:31:08 Heparin Flush added 2 Swati Swati used for Bag to bags Justyna Jansen, procedure (1000units/500ml field RN RN NS) 10:31:17 Lidocaine 2% added 20ml Swati Swati for local to vial Justyna Jansen anesthetic field RN RN 10:31:50 0.9% NaCl I.V. 100 Swati Swati Per ml/hr Justyna Jansen, physician RN RN 11:01:41 Fentanyl I.V. 50 Swati Swati for mcg Justyna Jansen, sedation RN RN 11:01:46 Versed I.V. 1 mg Swati Swati for Justyna Jansen, sedation RN RN 11:05:45 Fentanyl I.V. 50 Swati Swati for mcg Justyna Jansen, sedation RN RN 11:05:49 Versed I.V. 1 mg Swati Swati for Justyna Jansen, sedation RN automotive lot attendant Log Time Note 10:09:58 Informed consent obtained and on chart 10:10:02 Diagnostic Cath Status : Urgent 10:10:26 Procedure Status Urgent Heart Cath (IP). 10:10:28 Lorrie Siddiqi RT(R) sent for patient. Start room use. 10:12:34 Lab Result : Creatinine 1 mg/dl 10:12:34 Lab Result : BUN 11 mg/dl 10:12:34 Lab Result : Hematocrit 38.2 % 10:12:34 Lab Result : Hemoglobin 13 g/dl 10:12:34 Lab Result : eGFR NONAFRICAN 60 ml/min 10:12:39 Patient Height : 59.84 inches 10:12:42 Patient Weight : 119.05 lbs 10:12:44 Admit Source: Emergency department 10:12:49 Insurance Payor : Private health insurance 10:17:54 Time tracking: Regular hours (M-F 7:00 - 5:00) 10:18:38 Patient allergic to Other allergyNITROGLYCERIN/OXYCODONE,ERYTHROMYCIN 10:18:48 H&P Date Dictated: 11/12/2019 Within 30 days and on chart., ER History on chart.. 10:22:06 Plan of Care:Hemodynamics will remain stable., Cardiac rhythm will remain stable., Comfort level will be maintained., Respiratory function will remain adequate., Patient/ family verbilizes understanding of procedure., Procedure tolerated without complication., Recovers from procedure without complications.. 10:22:15 Patient received from Med II to CCL 1 Alert and oriented. Tansferred to table in Supine position. 10:22:17 Warm blankets applied, and genevieve hugger turned on for patient comfort. 10:22:18 Correct patient and procedure confirmed by team. 10::19 ECG and BP/O2 sat monitors applied to patient. 10::38 Vital chart was started 10::39 Baseline sample Acquired. 10::48 Rhythm: sinus rhythm 10::51 Full Disclosure recording started 10::52 - 10:29:59 Pre-procedure instructions explained to patient. 10:30:00 Pre-op teaching completed and patient verbalized understanding. 10:30:06 Family in patients room. 10:30:09 Patient NPO since Midnight. 10:30:13 Is the patient allergic to Iodine/contrast media? No. 10:30:18 Was the patient premedicated? Yes 10:30:30 Patient diabetic? No. 10:30:33 Is patient on blood thinner?No 10:30:38 ----Pre-sedation anethsthesia assessment.---- 10:30:42 Previous problem with sedation/anesthesia? No ? 10:30:46 Snore? Yes 10:30:51 Sleep apnea? No 10:30:56 Deviated septum? Unknown 10:30:59 Oxygen 2 l/min etCO2 Nasal cannula was administered by Swati Jansen RN; for low 02 sats; Verbal order read back and verified. 10:30:59 Opens mouth fully? Yes 10:31:01 Sticks out tongue? Yes 10:31:07 Airway obstruction? No ? 10:31:08 Heparin Flush Bag (1000units/500ml NS) 2 bags added to field was administered by Swati Jansen RN; used for procedure; Verbal order read back and verified. 10:31:17 Lidocaine 2% 20ml vial added to field was administered by Swati Jansen RN; for local anesthetic; Verbal order read back and verified. 10:31:20 Dentures? Yes IN TIGHT 10:31:45 Pre procedure: right dorsailis pedis pulse 2+ Normal; easily identifiable; not easily obliterated 10:31:50 0.9% NaCl 100 ml/hr I.V. was administered by Swati Jansen RN; Per physician; Verbal order read back and verified. 10:31:55 IV patent on arrival in right forearm with 0.9% NaCl at [facility]. 10:32:00 Lab results completed and on chart. 10:32:10 Stress Test: no; N/A ? 10:32:16 Risk of Mortality: 1.4 10:32:20 Risk of blood transfusion: 3.8 10:32:24 Risk of EDUARDO: 4.5 10:32:31 Right groin area was prepped with chlora-prep and draped in sterile fashion 10:32:35 Alarms reviewed by R. N. 10:32:36 Sharps counted by scrub and verified by R.N. 10:32:42 Use device set Femoral Dx 10:32:45 ACIST Syringe (30201) opened to sterile field. 10:32:46 Bag Decanter (2002S) opened to sterile field. 10:32:48 Medline Cath Pack ([id number]) opened to sterile field. 10:32:50 ACIST Hand Control (97812) opened to sterile field. 10:32:51 ACIST Manifold (60873) opened to sterile field. 10:32:52 DIAGNOSTIC Multipack 5Fr catheter set (OS1181) opened to sterile field. 10:32:53 Tegaderm 4 x 4 (1626W) opened to sterile field. 10:32:54 SHEATH 5FR [place] (BXC600) opened to sterile field. 10:32:55 EMERALD Guide Wire (634-186) opened to sterile field. 10:57:26 Physician arrived 10:57:27 --------ALL STOP TIME OUT------ 10:57:28 Final Timeout: patient, procedure, and site verified with staff and physician. All members of the team are in agreement. 10:57:31 Right groin site verified by team. 10:57:37 Fire Safety Assessment: A--An alcohol-based skin anteseptic being used preoperatively., C--Open oxygen or nitrous oxide is being used., D--An ESU, laser, or fiber-optic light is being used. 10:57:42 Physical assessment completed. ASA score P 2 - A patient with mild systemic disease as per Eyal Hawk MD. 10:57:48 2) 60-89 Mildly reduced kidney function, and other findings (as for stage 1) point to kidney disease. 10:57:53 Maximum allowable contrast dose (3.7 X eGFR X 0.75)166 ml. 10:58:01 Sedation plan: IV Moderate Sedation Medication:Versed, Fentanyl 10:59:02 Zero performed for pressure channel P1 11:01:37 Procedure started. 11:01:41 Fentanyl 50 mcg I.V. was administered by Swati Jansen RN; for sedation; Verbal order read back and verified. 11:01:46 Versed 1 mg I.V. was administered by Swati Jansen RN; for sedation; Verbal order read back and verified. 11:02:01 Local anesthetic to right femoral artery with Lidocaine 2% by Eyal Luna MD.INITIAL ACCESS ONLY 11:03:07 A 6 Fr Short sheath was inserted into the Right Femoral artery 11:03:17 A MULTIPACK JL 4.0 5Fr catheter was advanced over the wire and used for Left Coronary Angiography. 11:03:48 LCA angiography performed. 11:03:52 Injector settings: Ml/sec: 3, Volume: 6, 11:04:45 Catheter removed. 11:05:00 A MULTIPACK 3DRC 5Fr catheter was advanced over the wire and used for Right Coronary Angiography. 11:05:35 RCA angiography performed. 11:05:45 Fentanyl 50 mcg I.V. was administered by Swati Jansen RN; for sedation; Verbal order read back and verified. 11:05:47 Injector settings: Ml/sec: 3, Volume: 6, 11:05:49 Versed 1 mg I.V. was administered by Swati Jansen RN; for sedation; Verbal order read back and verified. 11:06:34 Left carotid angiography performed. 11:06:52 Injector settings: Ml/sec: 3, Volume: 6, 11:07:51 Right carotid angiography performed. 11:08:00 Injector settings: Ml/sec: 3, Volume: 6, 11:08:07 Catheter removed. 11:08:30 A MULTIPACK Pigtail 5 Fr catheter was advanced over the wire and used for LV Angiography. 11:08:37 LV gram done using FERRARA 11:08:40 Injector settings: Ml/sec: 5, Volume: 15, 11:09:20 EF : 55 % 11:09:30 LV hemodynamics recorded. 11:09:33 Catheter removed. 11:09:35 EXOSEAL 5Fr (EX500) opened to sterile field. 11:10:01 Sheath removed intact; hemostasis achieved with Exoseal to the Right Femoral artery. 11:10:05 Procedure ended.(Physican Out) 11:10:11 Contrast amount:Isovue 300 65ml. 11:10:19 Fluoroscopy time 02.00 minutes. 11:10:28 Fluoroscopy dose: 280 mGy 11:10:28 Flurop Dose total: 280 11:10:34 Dose Area Product 76520 mGy/cm. 11:10:39 Maximum allowable dose exceeded? No. 11:10:40 Sharps counted by scrub and verified by R.N. 11:10:47 Post-op/insertion site Right Femoral artery dressed using a 4 x 4 and Tegaderm. 11:10:52 Post-procedure physical assessment completed. ASA score P 2 - A patient with mild systemic disease as per Eyal Hawk MD. 11:11:01 Post procedure rhythm: unchanged. 11:11:08 Estimated blood loss: 5 ml 11:11:11 Post procedure instruction explained to patient.Patient verbalizes understanding. 11:11:12 Patient needs reinforcement of post procedure teaching. 11:12:12 Procedure type changed to Cath procedure, Diagnostic procedure, C, C w/Coronaries, Sedation Charges, Moderate Sedation up to 15 minutes, Peripheral Cath Diagnostic Procedure, 4-Vessel, Bilateral Carotid Arteriogram 11:12:15 Procedure and supply charges have been captured, reviewed, submitted an d are correct. 11:12:48 Procedure Complication : No complications 11:12:52 Vital chart was stopped 11:12:56 [facility] Findings: mild to moderate CAD (<70%) 11:13:01 See physician's report for complete and final results. 11:13:[address] [facility]. 11:13:[address] [facility] with Bed. 11:13:13 Procedure ended. 11:13:13 Full Disclosure recording stopped 11:13:18 End room use (Document Last) Device Usage Item Name Manufacture Quantity Catalog Hospital Part Current Minimal L ot# / Number Charge Number Stock Stock Serial# Code ACIST Acist 1 26998 131962 259235 [id number] 20 Syringe Medical (77456) Systems Inc Bag Microtek 1 2001S 646799 39804 134462 5 Decanter Medical Inc. () Medline Medline 1 [id number] 577375 63144 126181 5 Cath Pack ([id number]) ACIST Hand Acist 1 65384 178470 852786 475197 5 Control Medical (07851) Systems Inc ACIST Acist 1 47721 939044 809748 775685 5 Manifold Medical (95515) Systems Inc DIAGNOSTIC Cardinal 1 PD5710 077675 45595 520896 30 Multipack Health 5Fr catheter set (YC3394) Tegaderm 4 3M 1 1626W 990078 632128 765362 5 x 4 (1626W) SHEATH 5FR Terumo 1 HSI038 603372 809365 630766 5 [place] (MFU613) EMERALD Cardinal 1 502-455 952435 112102 705351 5 Guide Wire Health (502-455) MULTIPACK Cardinal 1 911767 5 JL 4.0 5Fr Health catheter MULTIPACK Cardinal 1 279404 5 3DRC 5Fr Health catheter MULTIPACK Cardinal 1 031866 5 Pigtail 5 Health Fr catheter EXOSEAL 5Fr Cardinal 1 EX500 895348 710644 492621 10 (EX500) Health Signature Audit [place] Stage Time Signature Unsigned Intra-Procedure 11/12/2019 Yanira 11:14:27 AM Andrew RT(R) (CV) Intra-Procedure 11/12/2019 Swati Jansen, 11:15:04 AM RN Intra-Procedure 11/12/2019 Eyal Conte 11:15:34 AM Jeremy CHAPMAN [place] [id number] [place] [address]
[~2019-11-12 00:24] MED LIST changes: +TALWIN NX1 TAB PO
[2019-11-12] MEDS ORDERED: RANEXA500 MG PO (00:37)
[2019-11-12 00:53] LABS: BASOPHILS 0.2 % (0-2); EOSINOPHILS 2.5 % (0-7); HEMATOCRIT 38.2 % (36.0-48.0); IMMATURE GRANULOCYTES 0.3 % (0-5); LYMPHOCYTES 23.6 % (15-50); MCH 30.5 pg (26.0-34.0); MCV 89.7 fL (80.0-100.0); MEAN PLATELET VOLUME 8.8 fL (7.4-10.4); MONOCYTES 5.8 % (2-11); NEUTROPHILS 67.6 % (40-80); RBC 4.26 10x6/uL (4.00-5.40); RDW 15.5 % (11.5-14.5); WBC 13.2 10x3/uL (4.8-10.8)
[2019-11-12 00:54] LABS: PLATELET COUNT 322 10x3/uL (130-400)
[2019-11-12 00:58] LABS: CALC OSMOLALITY 261 mosm/kg (275-300); CALCIUM 8.5 mg/dL (8.5-10.1); CARBON DIOXIDE 28.6 mmol/L (21.0-32.0); CHLORIDE - SERUM 94 mmol/L (98-107); GLUCOSE 103 mg/dL (74-106); POTASSIUM - SERUM 3.9 mmol/L (3.5-5.1); SODIUM 131 mmol/L (136-145); UREA NITROGEN 11 mg/dL (7-18); eGFR NON AFRICAN AMERICAN 60 mL/min (90-120)
[2019-11-12 01:00] LABS: APTT 32.7 SECONDS (22.8-39.4); INR 0.86 (0.85-1.17); PROTIME 11.7 SECONDS (11.6-15.0)
[2019-11-12 01:15] LABS: ALBUMIN 3.4 g/dL (3.4-5.0); ALKALINE PHOSPHATASE 80 U/L (30-120); ALT (SGPT) 28 U/L (10-68); CKMB 1.4 U/L (0.0-3.6); CREATINE KINASE 56 UL (21-215); MAGNESIUM - SERUM 1.8 mg/dL (1.8-2.4); PROTEIN - SERUM 7.1 g/dL (6.4-8.2); TROPONIN-I < 0.017 ng/mL (0.000-0.060)
--- NOTE | 2019-11-12 01:35 | NUR ---
PT ASKED THIS RN AND ANOTHER RN IF SHE COULD LEAVE TO GET A PAPER FROM HER CAR. THIS NURSE TOLD PT THAT SHE COULD NOT LEAVE UNIT AFTER RECEIVING MORPHINE AND IV CATHETER IN PLACE. PT VOICED UNDERSTANDING. THIS NURSE OFFERED TO RETREIVE PAPER FOR PT WITH A WITNESS, PT DENIED OFFER.
--- NOTE | 2019-11-12 01:55 | NUR ---
ATTEMPTED TO COVID SWAB PT AT THIS TIME FOR ADMISSION. PT WAS NOT IN ROOM. THIS RN AND ANOTHER RN FOUND PT IN FRONT OF ER ENTRANCE SMOKING BEHIND A STAHL. THOMAS QUIROGA APPROACHED PT AND STATED THAT SHE NEEDED TO RETURN TO UNIT NOW, THAT SHE WAS TOLD REPEATEDLY THAT SHE COULD NOT LEAVE ED WITH IV AND AFTER MORPHINE ADMINISTERED. PT SAID, "OKAY." THOMAS QUIROGA OFFERED NICOTINE PATCH TO PT. PT THEN REFUSED, AND APPEARED UPSET. STATING, "YOU'RE NOT GOING TO TALK TO ME LIKE THAT." PT RETURNED TO ED, SAYING SHE "WANTS TO JUST LEAVE." THIS NURSE SPOKE TO PT ALONE, ONCE IN ROOM AND TOLD PT THAT WE WERE GETTING HER A ROOM ON FLOOR FOR OBSERVATION AND THAT NICOTINE PATCH COULD BE ORDERED. PT THEN SIGNED AMA PAPERWORK AND IV CATHETER REMOVED. IV CATHETER INTACT, DRESSING APPLIED.
[2019-11-12 02:15] LABS: NITRITE NEGATIVE (NEGATIVE)
[2019-11-12 02:16] LABS: BILIRUBIN NEGATIVE (NEGATIVE); KETONE NEGATIVE (NEGATIVE); UROBILINOGEN NORMAL (NORMAL)
[2019-11-12 02:29] VITALS: BP 120/77
--- NOTE | 2019-11-12 02:46 | NUR ---
PT HAD CHANGED MIND, DECIDED SHE WILL NOT LEAVE AMA. WILL CONTINUE WITH PLAN OF CARE.
[2019-11-12 04:00] VITALS: BP 107/70
[2019-11-12 04:24] VITALS: Ht 152.4 cm; Wt 54.9 kg
[2019-11-12 06:51] LABS: CKMB 1.3 U/L (0.0-3.6); CREATINE KINASE 48 UL (21-215); TROPONIN-I < 0.017 ng/mL (0.000-0.060)
[2019-11-12 07:50] VITALS: BP 103/59
--- NOTE | 2019-11-12 08:45 | NUR ---
CONSENTS SIGNED FOR [facility]. WILL CONT. PLAN OF CARE.
[2019-11-12 09:21] LABS: ALT (SGPT) 26 U/L (10-68); CALC OSMOLALITY 269 mosm/kg (275-300); CALCIUM 8.5 mg/dL (8.5-10.1); CARBON DIOXIDE 28.4 mmol/L (21.0-32.0); CHLORIDE - SERUM 98 mmol/L (98-107); CHOL - HDL RATIO 2.6 ratio (2.3-4.1); CHOLESTEROL, TOTAL 166 mg/dL (0-200); GLUCOSE 96 mg/dL (74-106); HDL CHOLESTEROL 65 mg/dL (32-96); LDL CHOLESTEROL 84 mg/dL (0-100); LDL-HDL RATIO 1.3 ratio (1.5-3.5); SODIUM 135 mmol/L (136-145); TRIGLYCERIDE 89 mg/dL (30-200); UREA NITROGEN 12 mg/dL (7-18)
[2019-11-12 09:22] LABS: CREATININE - SERUM 0.7 mg/dL (0.6-1.3); eGFR NON AFRICAN AMERICAN > 90 mL/min (90-120)
--- NOTE | 2019-11-12 10:15 | NUR ---
PRE-OPS GIVEN. TO CONSTRUCTION SALES MANAGER BY BED.
[2019-11-12 10:21] LABS: BASOPHILS 0.2 % (0-2); EOSINOPHILS 2.8 % (0-7); HEMOGLOBIN 12.7 g/dL (12-16); IMMATURE GRANULOCYTES 0.2 % (0-5); LYMPHOCYTES 24.8 % (15-50); MCH 30.4 pg (26.0-34.0); MCHC 33.4 g/dL (31.0-37.0); MCV 90.9 fL (80.0-100.0); MEAN PLATELET VOLUME 9.1 fL (7.4-10.4); MONOCYTES 5.7 % (2-11); NEUTROPHILS 66.3 % (40-80); PLATELET COUNT 339 10x3/uL (130-400); RBC 4.18 10x6/uL (4.00-5.40); RDW 15.7 % (11.5-14.5); WBC 10.2 10x3/uL (4.8-10.8)
--- NOTE | 2019-11-12 11:15 | NUR ---
BACK FROM LIABILITY CLAIMS MANAGER. VS WNL. RIGHT GROIN STABLE WITHOUT BLEEDING OR HEMATOMA NOTED. WILL MONITOR.
--- NOTE | 2019-11-12 13:18 | NUR ---
BED REST UP. GROIN STABLE.
[2019-11-12] MEDS ORDERED: RANEXA1000 MG PO (15:06)
--- NOTE | 2019-11-12 15:33 | NUR ---
IV AND TELEMETRY DCD. DC PLANS GIVEN. UNDERSTANDING VOICED.
--- NOTE | 2019-11-13 09:11 | CN ---
PATIENT NAME:HERMINIA CHOPRA MEDICAL RECORD: [id number] : 60 LOCATION:[facility] ADMIT DATE: 11/12/19 ACCOUNT: [id number] CONSULTING PHYSICIAN: MARLENA SPARKS MD REFERRING PHYSICIAN: MARLENA LION MD DATE OF CONSULTATION: 11/12/2019 HISTORY OF PRESENT ILLNESS: A 59-year-old female with a known history of coronary artery disease, status post intervention of the LAD and right coronary, has a history of hypertension, has been having increasing angina typically managed on a combination of Ranexa and beta blockade, has been having more breakthroughs as of late for the last 2-3 weeks, had rest symptomology yesterday. We are asked to see her concerning her cardiovascular status. PAST MEDICAL HISTORY: Includes; 1. History of hypertension. 2. Hyperlipidemia. 3. Coronary artery disease as described above. ALLERGIES: NITROGLYCERIN, OXYCODONE, ERYTHROMYCIN. MEDICATIONS: Include baclofen 10 mg p.o. t.i.d., atorvastatin 10 mg p.o. at bedtime, losartan 100 mg p.o. daily, Ranexa 50 mg p.o. b.i.d., Celexa 40 every day. SOCIAL HISTORY: Smokes about a pack a day, nondrinker. No set exercise program. Easily able to take care of all her ADLs. REVIEW OF SYSTEMS: The patient reports easy bruising but reports no swollen glands. The patient reports no fever, no night sweats, no significant weight gain, no significant weight loss. No significant exercise tolerance. The patient reports no dry eyes, no irritation, no vision change. Patient reports no difficulty hearing and no ear pain. Patient reports no frequent nose bleeds or nose and sinus problems. Patient reports on arm pain on exertion. No shortness of breath while lying down. No history of heart murmur. Patient reports no cough, no wheezing or coughing up blood. Patient reports no abdominal pain, no vomiting. Normal appetite. No diarrhea and not vomiting blood. No nausea and no constipation. Patient reports no incontinence. No difficulty urinating. No hematuria. No increased frequency. Patient reports no muscle aches. No weakness, no arthralgias, no back pain. No swelling of the extremities. Patient reports no abnormal mole, no jaundice, no rashes. Reports no loss of consciousness. No weakness and no numbness. No seizures, dizziness, or headaches. The patient reports no depression, no sleep disturbance, feeling safe in a relationship and no alcohol abuse. Patient reports on fatigue. Reports no runny nose or sinus pressure. No itching, no hives, and no frequent sneezing. PHYSICAL EXAMINATION: GENERAL: A pleasant female, in no acute distress, appears stated age. VITAL SIGNS: Blood pressure 103/59, pulse 70 and regular. HEENT: Normocephalic, atraumatic. NECK: Questionable left carotid bruit. HEART: Regular. II/ systolic ejection murmur. LUNGS: Good air excursion. ABDOMEN: Soft, nontender. CONSULT REPORT [id number] HERMINIA CHOPRA EXTREMITIES: Pulses 2+. No edema. IMPRESSION: During history, the patient also reports left-sided weakness with an amaurosis type symptoms as well, intermittently over the past 2 weeks during her flare and angina. She does have a bruit on exam. We will plan for diagnostic angiography as well as 4-vessel arteriography, intervention based on above. TRANSINT:[id number] Voice Confirmation ID: [id number] DOCUMENT ID: [id number] MARLENA SPARKS MD at 0911 CC: [id number] DICTATION DATE: 11/12/19926 SLOPE TENDER: 11/12/19 1306 DIS IN 11/12/19 [place] [id number] [place] [address]
--- NOTE | 2019-11-13 09:11 | OP ---
PATIENT NAME: HERMINIA CHOPRA MEDICAL RECORD: [id number] :60 LOCATION:D.M2 D.2115 ADMISSION DATE:11/12/19 SURGEON: MARLENA SPARKS MD DATE OF OPERATION: 11/12/2019 PROCEDURES: Left heart catheterization plus 4-vessel arteriography. 1. LEFT HEART CATHETERIZATION: Left ventriculography in 30-degree FERRARA view: Normal wall motion. Normal systolic function. CORONARY ANATOMY: LEFT MAIN: Left main is free of disease. LAD: The area of previous stenting is widely patent throughout its course. No progression of [place] disease. CIRCUMFLEX: Free of disease. RIGHT CORONARY ARTERY: Previous stenting is widely patent; however, distally in the distal portion of the PDA, there is about 80% stenosis. It is a very small area, no more than 2 vessel with a small amount of myocardium distally. No role for intervention here. 2. FOUR-VESSEL ARTERIOGRAPHY: A 4-vessel arteriography was performed secondary to amaurosis symptomology as well as left-sided weakness and carotid bruit. a. Right common carotid: Right common carotid was selectively engaged. This shows smooth-walled vessel, free of disease. Right external carotid has some luminal wall disease, but no flow obstructive stenosis. Right internal carotid is smooth walled vessel, free of disease. b. Left common carotid: Left common carotid was selectively engaged, is smooth-walled vessel, free of disease. Left external carotid shows some wall disease, but no flow obstructive stenosis. Left internal carotid is smooth-walled vessel, free of disease. IMPRESSION: No significant internal carotid disease. NTS:[id number] Voice Confirmation ID: [id number] DOCUMENT ID: [id number] MARLENA SPARKS MD at 0911 CC: [id number] DICTATION DATE: 11/12/19 1115 MACHINE LOADER: 11/12/19 1836 DIS IN 11/12/19 [place] [id number] [place] [id number]
== END 2019-11-12 15:34 | disposition home or self-care (01) ==
LOC: D.ER 00:24 → D.M2 02:51 → OBSVTIME 02:51 → D.M2 15:34
PROVIDERS: Family Medicine; Internal Medicine Interventional Cardiology; ADMIT Family Medicine; ATTEND Family Medicine
DX: I25.110 Atherosclerotic heart disease of native coronary artery with unstable angina pectoris (principal); I10 Essential (primary) hypertension; E78.5 Hyperlipidemia, unspecified; R20.0 Anesthesia of skin; E11.9 Type 2 diabetes mellitus without complications; F17.200 Nicotine dependence, unspecified, uncomplicated; R07.9 Chest pain, unspecified

== ENCOUNTER 2020-05-15 11:12 | Emergency (ER) | payer OTHER ==
[~2020-05-15] VITALS: Ht 152.4 cm; Wt 53.7 kg
[~2020-05-15 11:12] MED LIST changes: +RANEXA1000 MG PO; +RANEXA500 MG PO
[2020-05-15 11:23] VITALS: BP 161/87; Ht 152.4 cm; Wt 53.7 kg
[2020-05-15 11:57] LABS: BASOPHILS 0.2 % (0-2); EOSINOPHILS 0.7 % (0-7); HEMATOCRIT 40.5 % (36.0-48.0); HEMOGLOBIN 13.6 g/dL (12-16); IMMATURE GRANULOCYTES 0.1 % (0-5); LYMPHOCYTE ABS# 2.96 10x3/uL (1.18-3.74); LYMPHOCYTES 29.8 % (15-50); MCH 29.6 pg (26.0-34.0); MCHC 33.6 g/dL (31.0-37.0); MCV 88.2 fL (80.0-100.0); MEAN PLATELET VOLUME 9.9 fL (7.4-10.4); MONOCYTES 8.6 % (2-11); NEUTROPHIL ABS# 6.03 10x3/uL (1.56-6.13); NEUTROPHILS 60.6 % (40-80); PLATELET COUNT 292 10x3/uL (130-400); RBC 4.59 10x6/uL (4.00-5.40); WBC 9.9 10x3/uL (4.8-10.8)
[2020-05-15 12:04] LABS: CALC OSMOLALITY 277 mosm/kg (275-300); CALCIUM 9.2 mg/dL (8.5-10.1); CARBON DIOXIDE 25.7 mmol/L (21.0-32.0); CHLORIDE - SERUM 105 mmol/L (98-107); CREATININE - SERUM 0.6 mg/dL (0.6-1.3); GLUCOSE 99 mg/dL (74-106); POTASSIUM - SERUM 4.3 mmol/L (3.5-5.1); SODIUM 140 mmol/L (136-145); UREA NITROGEN 11 mg/dL (7-18); eGFR NON AFRICAN AMERICAN > 90 mL/min (90-120)
[2020-05-15 12:15] LABS: ALBUMIN 4.1 g/dL (3.4-5.0); ALKALINE PHOSPHATASE 81 U/L (30-120); ALT (SGPT) 32 U/L (10-68); AMYLASE - SERUM 88 U/L (25-115); BILIRUBIN - TOTAL 0.13 mg/dL (0.2-1.3); LIPASE 166 U/L (73-393); PROTEIN - SERUM 7.9 g/dL (6.4-8.2)
[2020-05-15 12:16] LABS: TROPONIN-I < 0.017 ng/mL (0.000-0.060)
[2020-05-15 12:48] LABS: BILIRUBIN NEGATIVE (NEGATIVE); KETONE NEGATIVE (NEGATIVE); NITRITE NEGATIVE (NEGATIVE); UROBILINOGEN NORMAL mg/dL (< 2)
== END 2020-05-15 14:50 | disposition home or self-care (01) ==
LOC: D.ER 11:12
PROVIDERS: Emergency Medicine
DX: R10.11 Right upper quadrant pain (principal); K59.00 Constipation, unspecified

== ENCOUNTER 2020-05-15 21:06 | Emergency (ER) | payer OTHER ==
[~2020-05-15] VITALS: Ht 152.4 cm; Wt 54.8 kg
[2020-05-15 21:10] VITALS: BP 138/92; Ht 152.4 cm; Wt 54.8 kg
== END 2020-05-15 21:42 | disposition home or self-care (01) ==
LOC: D.ER 21:06
DX: M54.5 Low back pain (principal)

== ENCOUNTER 2020-05-25 15:47 | Emergency (ER) | payer OTHER ==
[~2020-05-25] VITALS: Ht 152.4 cm; Wt 53.6 kg
[2020-05-25 15:49] VITALS: BP 156/83; Ht 152.4 cm; Wt 53.6 kg
== END 2020-05-25 16:27 | disposition left against medical advice (07) ==
LOC: D.ER 15:47
DX: Z76.5 Malingerer [conscious simulation] (principal); M54.5 Low back pain; Z95.5 Presence of coronary angioplasty implant and graft

== ENCOUNTER 2020-05-25 18:16 | Emergency (ER) | payer OTHER ==
[~2020-05-25] VITALS: Ht 152.4 cm; Wt 53.2 kg
[2020-05-25 18:22] VITALS: Ht 152.4 cm; Wt 53.2 kg
[2020-05-25 19:36] LABS: BASOPHILS 0.1 % (0-2); EOSINOPHILS 0.1 % (0-7); HEMATOCRIT 35.7 % (36.0-48.0); HEMOGLOBIN 11.8 g/dL (12-16); IMMATURE GRANULOCYTES 0.3 % (0-5); LYMPHOCYTE ABS# 1.88 10x3/uL (1.18-3.74); LYMPHOCYTES 12.1 % (15-50); MCH 29.3 pg (26.0-34.0); MCHC 33.1 g/dL (31.0-37.0); MCV 88.6 fL (80.0-100.0); MEAN PLATELET VOLUME 9.9 fL (7.4-10.4); MONOCYTES 5.1 % (2-11); NEUTROPHIL ABS# 12.82 10x3/uL (1.56-6.13); NEUTROPHILS 82.3 % (40-80); RBC 4.03 10x6/uL (4.00-5.40); RDW 14.2 % (11.5-14.5); WBC 15.6 10x3/uL (4.8-10.8)
[2020-05-25 19:38] LABS: PLATELET COUNT 220 10x3/uL (130-400)
[2020-05-25 19:45] LABS: CALC OSMOLALITY 288 mosm/kg (275-300); CALCIUM 8.9 mg/dL (8.5-10.1); CARBON DIOXIDE 27.8 mmol/L (21.0-32.0); CHLORIDE - SERUM 105 mmol/L (98-107); CREATININE - SERUM 0.8 mg/dL (0.6-1.3); GLUCOSE 111 mg/dL (74-106); POTASSIUM - SERUM 3.7 mmol/L (3.5-5.1); SODIUM 142 mmol/L (136-145); UREA NITROGEN 26 mg/dL (7-18); eGFR NON AFRICAN AMERICAN 78 mL/min (90-120)
[2020-05-25 20:00] LABS: ALBUMIN 4.1 g/dL (3.4-5.0); ALKALINE PHOSPHATASE 67 U/L (30-120); ALT (SGPT) 36 U/L (10-68); BILIRUBIN - TOTAL 0.29 mg/dL (0.2-1.3); CKMB 5.6 U/L (0.0-3.6); CREATINE KINASE 395 UL (21-215); MAGNESIUM - SERUM 1.9 mg/dL (1.8-2.4); PROTEIN - SERUM 7.7 g/dL (6.4-8.2); TROPONIN-I < 0.017 ng/mL (0.000-0.060)
[2020-05-25 20:37] LABS: BILIRUBIN NEGATIVE (NEGATIVE); KETONE NEGATIVE (NEGATIVE); NITRITE NEGATIVE (NEGATIVE); UROBILINOGEN NORMAL mg/dL (< 2)
[2020-05-25 20:40] LABS: UDS - AMPHET NEGATIVE QUAL (NEGATIVE); UDS - BARB NEGATIVE QUAL (NEGATIVE); UDS - BENZO NEGATIVE QUAL (NEGATIVE); UDS - COCAINE NEGATIVE QUAL (NEGATIVE); UDS - OPIATE NEGATIVE QUAL (NEGATIVE); UDS - PCP NEGATIVE QUAL (NEGATIVE); UDS - THC NEGATIVE QUAL (NEGATIVE)
== END 2020-05-25 20:50 | disposition home or self-care (01) ==
LOC: D.ER 18:16
PROVIDERS: Family Medicine
DX: M54.5 Low back pain (principal); G89.29 Other chronic pain; R55 Syncope and collapse; I10 Essential (primary) hypertension; Z72.0 Tobacco use